=== PATIENT | male | born 1995 | race Caucasian/White ===

== ENCOUNTER 2023-04-29 18:14 | Inpatient (IN) ==
[2023-04-29] MEDS ORDERED: SODIUM CHLORIDE 0.9% 1,000 ML IV ONE (18:22)
--- NOTE | 2023-04-29 18:30 | Emergency Department Note ---
Impression & Plan Status epilepticus ED Provider Note NAME: HOWARD [id number] YOLANDA AGE: 28 SEX: M : 1995 ARRIVES VIA: Ambulance INFORMANT: EMS ED PROVIDER(S): Jona Pelaez DO CHIEF COMPLAINT: seizure HPI: Patient is a 28-year-old male who presents to the ER for seizure. He was acting confused in his cell and then started having seizures. This was witnessed by jail staff. He was brought in. He was given a total of 2 separate doses of Ativan at the jail of 2 mg apiece. Following this for EMS he was given 5 mg of Versed x2. The seizures did stop after each time. History is otherwise limited as he is unable to contribute to the history. PAST MEDICAL HISTORY:See Below PAST SURGICAL HISTORY:See Below FAMILY HISTORY:See Below SOCIAL HISTORY:See Below HOME MEDICATIONS:See Below ALLERGIES:See Below VITALS:See Below PHYSICAL EXAMINATION: GENERAL: Lying in bed with eyes open, nontoxic EYE EXAM: normal conjunctiva. PERRL and EOM's grossly intact. OROPHARYNX: mucous membranes are moist LUNGS: Clear to auscultation. Normal chest wall mechanics HEART: no murmurs, S1 normal and S2 normal ABDOMEN: abdomen soft, non-tender, normo-active bowel sounds, no masses, no rebound or guarding. BACK: Back is symmetrical on inspection and there is no deformity, no midline tenderness, no CVA tenderness. UPPER EXTREMITIES: upper extremities are grossly normal. LOWER EXTREMITIES: No pitting edema. NEURO EXAM: Awake and alert able to stick his tongue out but does not follow commands otherwise MEDICAL DECISION MAKING: Patient is a 28-year-old male who presents ER for above-stated complaint. IV was established blood work was obtained. Detention records reviewed/external recor ds. Labs show no significant leukocytosis or anemia. There is mild leukopenia at 4000. BMP along with LFTs bilirubin and magnesium was unremarkable. UA was clean. Tox was positive for benzos. Alcohol negative. COVID-negative. CT head and cervical spine was negative. Patient was updated bedside. He was improving. He was given 2 g of Keppra while here in the ER. He was updated and admitted to the hospitalist for further evaluation management treatment. Discussed with Pt concerning signs and symptoms to watch out for. Pt was instructed to follow up with their PCP and discussed with the patient their option to return to the ED at anytime for persistent or worsening symptoms. The appropriate anticipatory guidance and out-patient management, including indications for return to the emergency department, were explained at length to the patient and understood. Triage Nursing notes reviewed. Limited review of prior medical records performed Vital Signs: reviewed and remarkable for no significant abnormalities Differential diagnosis: Differential diagnoses includes but is not limited to toxic, metabolic, infectious, traumatic, cardiac, neurologic, hematologic, psychiatric and inflammatory etiologies. ER treatment provided: See below Diagnostics interpreted by me include EKG and cardiac monitoring as listed below: -Cardiac Monitoring: An order was placed for continuous cardiac monitoring. The monitor shows a rate of 70 with sinus rhythm. -ECG: Sinus rhythm rate 81 Normal axis No PVCs QTc 434 -Laboratory studies:Interpreted by me as stated above in MDM and shown below. 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 Required: No Beliefs That Will Affect Care: None Current Living Situation: Other Current Living Situation Comment: [facility] Feels Safe at Home: Yes Allergies Allergies Allergy/AdvReac Type Severity Reaction Status Date / Time Carbapenems Allergy Unknown Unknown Verified 04/29/23 19:48 Cephalosporins Allergy Unknown Unknown Verified 04/29/23 19:48 Penicillins Allergy Unknown Unknown Verified 04/29/23 19:48 polyethylene glycol Allergy Unknown Unknown Verified 04/29/23 19:48 shellfish derived Allergy Unknown Unknown Verified 04/29/23 19:48 ziprasidone [From Geodon] Allergy Unknown Unknown Verified 04/29/23 19:48 Home Meds Home Medications Medication Instructions Recorded Confirmed albuterol sulfate 90 mcg/actuation 2 puff inhalation QID PRN Wheezing 04/29/23 04/29/23 aerosol inhaler atorvastatin 20 mg tablet 20 mg PO DAILY 04/29/23 04/29/23 carbamazepine 200 mg tablet 300 mg PO TID 04/29/23 04/29/23 hydrochlorothiazide 25 mg tablet 50 mg PO DAILY 04/29/23 04/29/23 levetiracetam 500 mg tablet 500 mg PO BID 04/29/23 04/29/23 levothyroxine 75 mcg tablet 75 mcg PO QAM 04/29/23 04/29/23 omeprazole 20 mg capsule,delayed 20 mg PO DAILY 04/29/23 04/29/23 release perphenazine 16 mg tablet 16 mg PO BID 04/29/23 04/29/23 prazosin 2 mg capsule 4 mg PO 04/29/23 04/29/23 venlafaxine 150 mg 300 mg PO HS 04/29/23 04/29/23 capsule,extended release 24 hr venlafaxine 75 mg capsule,extended 75 mg PO HS 04/29/23 04/29/23 release 24 hr Results & Data (ED) Vital Signs Vital Signs - 24 hr 04/29/23 18:19 04/29/23 18:25 04/29/23 19:00 Pulse Rate 85 80 Pulse Rate from SpO2 Sensor 79 Pulse Rhythm Regular Pulse Strength Normal Respiratory Rate 18 20 Respiratory Effort / Characteristics Non-Labored Respiratory Depth Normal Respiratory Pattern Regular Blood Pressure 126/88 132/86 Blood Pressure Mean 100 101 Pulse Oximetry 95 94 98 Oxygen Delivery Method Room Air Room Air Room Air Sepsis Recent Fever Within 48 Hours No Sepsis New/Unexplained Change in Mental Status N/A Sepsis Action Taken by Nursing No Action Required 04/29/23 18:53 04/29/23 19:35 04/29/23 19:43 Pulse Rate 88 95 H 102 H Pulse Rate from SpO2 Sensor 95 H 106 H Pulse Rhythm Pulse Strength Respiratory Rate 22 28 H Respiratory Effort / Characteristics Respiratory Depth Respiratory Pattern Blood Pressure 128/86 127/96 Blood Pressure Mean 100 106 Pulse Oximetry 99 98 Oxygen Delivery Method Room Air Room Air Sepsis Recent Fever Within 48 Hours Sepsis New/Unexplained Change in Mental Status Sepsis Action Taken by Nursing 04/29/23 20:00 Pulse Rate 84 Pulse Rate from SpO2 Sensor 83 Pulse Rhythm Pulse Strength Respiratory Rate 23 Respiratory Effort / Characteristics Respiratory Depth Respiratory Pattern Blood Pressure 128/93 Blood Pressure Mean 104 Pulse Oximetry 97 Oxygen Delivery Method Room Air Sepsis Recent Fever Within 48 Hours Sepsis New/Unexplained Change in Mental Status Sepsis Action Taken by Nursing Laboratory Data 04/29/23 18:39 04/29/23 18:39 Lab Results 04/29/23 04/29/23 04/29/23 Range/Units 18:39 18:39 18:39 WBC 4.42 L (4.8-10.8) K/ul RBC 4.68 L (4.70-6.10) M/uL Hgb 14.1 (14.0-18.0) g/dl Hct 41.4 L (42.0-52.0) % MCV 88.5 (80.0-100.0) fL MCH 30.1 (25.0-34.0) pg MCHC 34.1 (32.0-36.0) g/dL RDW Std Deviation 44.2 (36.4-46.3) fL RDW Coeff of Taras 13.7 (11.5-14.5) % Plt Count 278 (130-400) K/uL MPV 9.7 (9.4-12.4) fL Immature Gran % (Auto) 0.7 % Neut % (Auto) 62.4 % Lymph % (Auto) 23.1 % Mont[place] % (Auto) 10.6 % Eos % (Auto) 2.3 % Baso % (Auto) 0.9 % Neut # (Auto) 2.76 (1.40-6.50) K/uL Lymph # (Auto) 1.02 L (1.20-3.40) K/uL [place] # (Auto) 0.47 (0.11-0.59) K/uL Eos # (Auto) 0.10 (0.00-0.50) K/uL Baso # (Auto) 0.04 (0.00-0.20) K/uL Immature Gran # (Auto) 0.03 (0.01-0.20) K/uL Sodium 140 (136-145) mmol/L Potassium 4.2 (3.5-5.1) mmol/L Chloride 107 (98-107) mmol/L Carbon Dioxide 29 (21-32) mmol/L Anion Gap 4 (3-11) BUN 10 (6-23) mg/dl Creatinine 0.94 (0.6-1.4) mg/dl Est Cr Clr Drug Dosing Not Reportable Est GFR ( Amer) 126.5 ml/min Est GFR (Non-Af Amer) 109.1 ml/min BUN/Creatinine Ratio 10.6 (10-20) Glucose 92 (70-99(Fasting)) mg/dl Calcium 9.1 (8.6-10.3) mg/dl Magnesium 1.8 (1.7-2.4) mg/dl Total Bilirubin 0.2 (0.2-1.0) mg/dl AST 27 (13-39) U/L ALT 34 (7-52) U/L Alkaline Phosphatase 100 (34-104) U/L Total Protein 7.3 (6.0-8.3) gm/dl Albumin 4.4 (3.4-5.0) gm/dl Globulin 2.9 (2.5-4.0) gm/dl Albumin/Globulin Ratio 1.5 (0.9-2) Urine Color Urine Appearance (Clear) Urine pH (4.5-7.5) Ur Specific [place] (1.000-1.030) Urine Protein (Negative) Urine Glucose (UA) (Negative) Urine Ketones (Negative) Urine Blood (Negative) Urine Nitrite (Negative) Urine Bilirubin (Negative) Urine Urobilinogen (Negative) Ur Leukocyte Esterase (Negative) Urine Opiates Screen (Neg) Ur Methadone, Qual (Neg) Urine Barbiturates (Neg) Ur Phencyclidine (PCP) (Neg) U Amphetamin/Meth Scrn (Neg) MDMA (Ecstasy) Screen (Neg) U Benzodiazepines Scrn (Neg) Ur Cocaine Metabolite (Neg) U Marijuana (THC) Screen (Neg) Ethyl Alcohol mg/dL < 10.0 (<10.0) mg/dl 04/29/23 04/29/23 Range/Units 19:20 19:20 WBC (4.8-10.8) K/ul RBC (4.70-6.10) M/uL Hgb (14.0-18.0) g/dl Hct (42.0-52.0) % MCV (80.0-100.0) fL MCH (25.0-34.0) pg MCHC (32.0-36.0) g/dL RDW Std Deviation (36.4-46.3) fL RDW Coeff of Taras (11.5-14.5) % Plt Count (130-400) K/uL MPV (9.4-12.4) fL Immature Gran % (Auto) % Neut % (Auto) % Lymph % (Auto) % [place] % (Auto) % Eos % (Auto) % Baso % (Auto) % Neut # (Auto) (1.40-6.50) K/uL Lymph # (Auto) (1.20-3.40) K/uL [place] # (Auto) (0.11-0.59) K/uL Eos # (Auto) (0.00-0.50) K/uL Baso # (Auto) (0.00-0.20) K/uL Immature Gran # (Auto) (0.01-0.20) K/uL Sodium (136-145) mmol/L Potassium (3.5-5.1) mmol/L Chloride (98-107) mmol/L Carbon Dioxide (21-32) mmol/L Anion Gap (3-11) BUN (6-23) mg/dl Creatinine (0.6-1.4) mg/dl Est Cr Clr Drug Dosing Est GFR ( Amer) ml/min Est GFR (Non-Af Amer) ml/min BUN/Creatinine Ratio (10-20) Glucose (70-99(Fasting)) mg/dl Calcium (8.6-10.3) mg/dl Magnesium (1.7-2.4) mg/dl Total Bilirubin (0.2-1.0) mg/dl AST (13-39) U/L ALT (7-52) U/L Alkaline Phosphatase (34-104) U/L Total Protein (6.0-8.3) gm/dl Albumin (3.4-5.0) gm/dl Globulin (2.5-4.0) gm/dl Albumin/Globulin Ratio (0.9-2) Urine Color Yellow Urine Appearance Clear (Clear) Urine pH 8.0 H (4.5-7.5) Ur Specific [place] 1.011 (1.000-1.030) Urine Protein Negative (Negative) Urine Glucose (UA) Negative (Negative) Urine Ketones Negative (Negative) Urine Blood Negative (Negative) Urine Nitrite Negative (Negative) Urine Bilirubin Negative (Negative) Urine Urobilinogen Negative (Negative) Ur Leukocyte Esterase Negative (Negative) Urine Opiates Screen Neg (Neg) Ur Methadone, Qual Neg (Neg) Urine Barbiturates Neg (Neg) Ur Phencyclidine (PCP) Neg (Neg) U Amphetamin/Meth Scrn Neg (Neg) MDMA (Ecstasy) Screen Neg (Neg) U Benzodiazepines Scrn Pos H (Neg) Ur Cocaine Metabolite Neg (Neg) U Marijuana (THC) Screen Neg (Neg) Ethyl Alcohol mg/dL (<10.0) mg/dl Administered Medications Nicotine (Nicotine 21 Mg/24 Hr Tdsy) 21 mg TD QAM ZULMA Stop: 05/29/23 22:54 Last Admin: 04/29/23 23:03 Dose: 21 mg Documented By: LEONCIO Prazosin HCl (Prazosin Hcl 1 Mg Cap) 4 mg PO HS ZULMA Stop: 05/29/23 22:04 Last Admin: 04/29/23 22:45 Dose: 4 mg Documented By: LEONCIO Discontinued Medications Levetiracetam 2,000 mg/ Sodium (Chloride) 270 mls @ 999 mls/hr IV NOW STA Stop: 04/29/23 18:38 Last Infusion: 04/29/23 19:03 Dose: 0 mls/hr Documented By: Admin: 04/29/23 18:35 Dose: 999 mls/hr Documented By: BEVERLEY Sodium Chloride (Nss) 1,000 mls @ 999 mls/hr IV .Q1H1M ONE Stop: 04/29/23 19:22 Last Infusion: 04/29/23 19:39 Dose: 0 mls/hr Documented By: Admin: 04/29/23 18:26 Dose: 999 mls/hr Documented By: BEVERLEY Imaging Data Radiologist's Impression: Head CT 04/29/23 18:22 Exam(s): CT HEAD Without Contrast EXAM: CT Head Without Intravenous Contrast CLINICAL HISTORY: Reason for exam: ams. TECHNIQUE: Axial computed tomography images of the head/brain without intravenous contrast. CTDI is 37.42 mGy and DLP is 702.46 mGy-cm. Automated exposure control was utilized for the study. A dose lowering technique was utilized adhering to the principles of ALARA. COMPARISON: None FINDINGS: Brain: No acute infarct or hemorrhage. No extra-axial fluid collection. No mass effect or midline shift. Ventricles and sulci: Normal. No ventriculomegaly or intraventricular hemorrhage. Bones: Normal. No bony lesion or acute fracture. Subcutaneous tissues: Normal. Sinuses: Normal. No air-fluid levels or mucosal thickening. Mastoid air cells: Normal. Orbits: Grossly unremarkable. IMPRESSION: No acute intracranial abnormality. Electronically signed by: Cortney Woody M.D. 04/29/23 19:[address] 04/29/23 18:32 Exam(s): CT C SPINE EXAM: CT Cervical Spine Without Intravenous Contrast CLINICAL HISTORY: Reason for exam: fall. TECHNIQUE: Axial computed tomography images of the cervical spine without intravenous contrast. CTDI is 26.9 mGy and DLP is 541.59 mGy-cm. Automated exposure control was utilized for the study. A dose lowering technique was utilized adhering to the principles of ALARA. COMPARISON: None FINDINGS: Bones: Normal alignment. No acute fracture or bony lesion. Disc spaces: No subluxation. No spinal canal stenosis or neuroforaminal stenosis. Soft tissues: Normal. IMPRESSION: No acute traumatic abnormality. Electronically signed by: Cortney Woody M.D. 04/29/23 19:41 PM Discharge Plan Visit Data Chief Complaint: Seizure Stated Complaint: SEIZURE ED Provider: Jona Pelaez Discharge Problem: Status epilepticus Patient Disposition: Admitted As Inpatient Discharge Instructions Interventions: ED Discharge Assessment Last Done: 04/29/23 21:45
[2023-04-29 18:57] LABS: Basophils # (auto) 0.04 K/uL (0.00-0.20); Basophils % (auto) 0.9 %; Eosinophils % (auto) 2.3 %; Hematocrit (blood only) 41.4 % (42.0-52.0); Hemoglobin 14.1 g/dl (14.0-18.0); Immature Granulocytes # (auto) 0.03 K/uL (0.01-0.20); Immature Granulocytes % (auto) 0.7 %; Lymphocytes # (auto) 1.02 K/uL (1.20-3.40); Lymphocytes % (auto) 23.1 %; Mean Corpuscular Hemoglobin 30.1 pg (25.0-34.0); Mean Corpuscular Hgb Conc 34.1 g/dL (32.0-36.0); Mean Corpuscular Volume 88.5 fL (80.0-100.0); Mean Platelet Volume 9.7 fL (9.4-12.4); Monocytes # (auto) 0.47 K/uL (0.11-0.59); Monocytes % (auto) 10.6 %; Neutrophils # (auto) 2.76 K/uL (1.40-6.50); Neutrophils % (auto) 62.4 %; Platelet Count 278 K/uL (130-400); RDW Coefficient of Variation 13.7 % (11.5-14.5); RDW Standard Deviation 44.2 fL (36.4-46.3); Red Blood Count 4.68 M/uL (4.70-6.10); White Blood Count 4.42 K/ul (4.8-10.8)
[2023-04-29 19:09] LABS: Alanine Aminotransferase 34 U/L (7-52); Albumin Globulin Ratio 1.5 (0.9-2); Albumin Level 4.4 gm/dl (3.4-5.0); Alkaline Phosphatase 100 U/L (34-104); Anion Gap 4 (3-11); Aspartate Aminotransferase 27 U/L (13-39); BUN Creatinine Ratio 10.6 (10-20); Bilirubin,Total 0.2 mg/dl (0.2-1.0); Blood Urea Nitrogen 10 mg/dl (6-23); Calcium 9.1 mg/dl (8.6-10.3); Carbon Dioxide 29 mmol/L (21-32); Chloride 107 mmol/L (98-107); Est GFR (African American) 126.5 ml/min; Est GFR (Non-African American) 109.1 ml/min; Globulin 2.9 gm/dl (2.5-4.0); Glucose 92 mg/dl (70-99(Fasting)); Magnesium 1.8 mg/dl (1.7-2.4); Potassium 4.2 mmol/L (3.5-5.1); Sodium 140 mmol/L (136-145); Total Protein 7.3 gm/dl (6.0-8.3)
--- NOTE | 2023-04-29 19:41 | CT Scan Report ---
Exam(s): CT HEAD Without Contrast EXAM: CT Head Without Intravenous Contrast CLINICAL HISTORY: Reason for exam: ams. TECHNIQUE: Axial computed tomography images of the head/brain without intravenous contrast. CTDI is 37.42 mGy and DLP is 702.46 mGy-cm. Automated exposure control was utilized for the study. A dose lowering technique was utilized adhering to the principles of ALARA. COMPARISON: None FINDINGS: Brain: No acute infarct or hemorrhage. No extra-axial fluid collection. No mass effect or midline shift. Ventricles and sulci: Normal. No ventriculomegaly or intraventricular hemorrhage. Bones: Normal. No bony lesion or acute fracture. Subcutaneous tissues: Normal. Sinuses: Normal. No air-fluid levels or mucosal thickening. Mastoid air cells: Normal. Orbits: Grossly unremarkable. IMPRESSION: No acute intracranial abnormality. Electronically signed by: Cortney Woody M.D. 04/29/23 19:40 PM
--- NOTE | 2023-04-29 19:42 | CT Scan Report ---
Exam(s): CT C SPINE EXAM: CT Cervical Spine Without Intravenous Contrast CLINICAL HISTORY: Reason for exam: fall. TECHNIQUE: Axial computed tomography images of the cervical spine without intravenous contrast. CTDI is 26.9 mGy and DLP is 541.59 mGy-cm. Automated exposure control was utilized for the study. A dose lowering technique was utilized adhering to the principles of ALARA. COMPARISON: None FINDINGS: Bones: Normal alignment. No acute fracture or bony lesion. Disc spaces: No subluxation. No spinal canal stenosis or neuroforaminal stenosis. Soft tissues: Normal. IMPRESSION: No acute traumatic abnormality. Electronically signed by: Cortney Woody M.D. 04/29/23 19:41 PM
[2023-04-29 19:54] LABS: Appearance Urine Clear (Clear); Bilirubin Urine Negative (Negative); Blood Urine Negative (Negative); Color Urine Yellow; Glucose Urine UA Negative (Negative); Ketones Urine Negative (Negative); Leukocyte Esterase Urine Negative (Negative); Nitrite Urine Negative (Negative); Protein Urine Negative (Negative); Specific Gravity Urine 1.011 (1.000-1.030); Urobilinogen Urine Negative (Negative)
--- NOTE | 2023-04-29 20:07 | History & Physical Report ---
Date of Service April 29, 2023 Assessment & Plan (1) Seizure: Plan: -Admit to the PCU on tele -Currently stable and without seizure activity since ED arrival -Patient has a hx of both seizure disorder and conversion disorder with seizures or convulsions -Witnessed having seizures around 1730, did not break after 4 mg ativan at the shelter, did break after 10 mg of Versed -S/P 2gm IV keppra in the ED -At this time the etiology of his current episodes is unknown, no metabolic derangements on initial labs, alcohol level is negative, tox screen is in process -CT of the head and chest xray are negative -Patient denies missing doses of medications recently; [facility] confirmed that he has been on the same doses of Keppra and Carbamazepine since December of 2021 -He does have a history of alcohol abuse, he has been at [facility] for approximately 1 year, alcohol level negative, do not think he is in alcohol withdrawal at this time but will need to keep it on the differential for now -Patient is on Perphenazine, per UpToDate, this can cause seizures, unsure if this could be related to recent events at this time, will hold for now -Will order prn IV ativan, 4mg for recurrent seizures -Patient was given 2gm IV keppra in the ED, will continue oral antiepileptic medications tomorrow am -Neurology consult placed -Seizure precuations -BL SCD's for DVT PPX -NPO for now until he is awake and safe to eat -AM CBC, CMP, Mag (2) Antisocial personality disorder: Plan: -Continue prazosin and Venlafaxine (3) Seizure disorder: Plan: -Continue Keppra and Carbamazepine (4) Conversion disorder with seizures or convulsions: Plan: -Monitor for possible seizure related activity related (5) Hypothyroidism: Plan: -Continue levothyroxine (6) HTN (hypertension): Plan: -Stable -Conitnue HCTZ (7) GERD (gastroesophageal reflux disease): Plan: -Conitnue PPI (8) Asthma: Plan: -Continue prn albuterol (9) Amphetamine abuse: Plan: -Monitor urine tox screen (10) Alcohol abuse: Plan: -Monitor for alcohol withdrawal -Would speak with him regarding possible alcohol obtain in the shelter when he is more alert Plan The patient was seen with and discussed with Dr. Agosto at the time of the admission History of Present Illness Chief Complaint: Seizures Primary Care Provider: WALTER Banuelos is a 28 year old male with a PMH significant for seizure disorder, hypothyroidism, schizoaffective disorder, bipolar type, antisocial personality disorder, alcohol use disorder, amphetamine abuse, who presented to the [facility] ED from [facility] via ALS for seizures. Per the ED staff, the patient has a hx of seizures and was acting strange in his cell earlier tonight. Guards then witnessed the patient starting to have seizures. The patient was given 2, 2 mg doses of Ativan at the Detention without resolution of seizures. EMS gave the patient 10 mg Versed in route and his seizures broke. In the ED the patient was noted to be tachycardic at 102 and tachypneic at 28 but otherwise stable. CBC, CMP, and UA were unremarkable. Prior to admission the patient was given 2gm IV keppra and 1L NSS. At the time of the exam the patient was lying in bed in no acute distress. He is very fatigued due to recent seizures and large amount of benzodiazepines. He confirms that he has a history of seizures and states that he is currently on Carbamazapine and Keppra (confirmed by med rec). He denies recent fever, chills, chest pain, SOB, nausea, vomiting, trauma, cough, nausea, vomiting, diarrhea, dysuria, hematuria. When asked, he states he is having abdominal pain but is unable to give further details. I called and spoke to the [facility] who was able to confirm that he has been on Carbamazepine and Keppra, unfortunately they were unable to provider further information at that time. Please refer to Dr. Agosto's attestation for any changes to the treatment plan Allergies Allergy/AdvReac Type Severity Reaction Status Date / Time Carbapenems Allergy Unknown Unknown Verified 04/29/23 19:48 Cephalosporins Allergy Unknown Unknown Verified 04/29/23 19:48 Penicillins Allergy Unknown Unknown Verified 04/29/23 19:48 polyethylene glycol Allergy Unknown Unknown Verified 04/29/23 19:48 shellfish derived Allergy Unknown Unknown Verified 04/29/23 19:48 ziprasidone [From Geodon] Allergy Unknown Unknown Verified 04/29/23 19:48 Home Medications Medication Instructions Recorded Confirmed Type albuterol sulfate 90 mcg/actuation 2 puff inhalation QID PRN Wheezing 04/29/23 04/29/23 History aerosol inhaler atorvastatin 20 mg tablet 20 mg PO DAILY 04/29/23 04/29/23 History carbamazepine 200 mg tablet 300 mg PO TID 04/29/23 04/29/23 History hydrochlorothiazide 25 mg tablet 50 mg PO DAILY 04/29/23 04/29/23 History levetiracetam 500 mg tablet 500 mg PO BID 04/29/23 04/29/23 History levothyroxine 75 mcg tablet 75 mcg PO QAM 04/29/23 04/29/23 History omeprazole 20 mg capsule,delayed 20 mg PO DAILY 04/29/23 04/29/23 History release perphenazine 16 mg tablet 16 mg PO BID 04/29/23 04/29/23 History prazosin 2 mg capsule 4 mg PO HS 04/29/23 04/29/23 History venlafaxine 150 mg 300 mg PO HS 04/29/23 04/29/23 History capsule,extended release 24 hr venlafaxine 75 mg capsule,extended 75 mg PO HS 04/29/23 04/29/23 History release 24 hr Past Med/Surg History Medical History (Updated 04/30/23 @ 14:34 by Loreta Monreal MD) Alcohol abuse Amphetamine abuse Antisocial personality disorder Asthma Conversion disorder with seizures or convulsions GERD (gastroesophageal reflux disease) HTN (hypertension) Hypothyroidism Schizoaffective disorder Seizure disorder Social History Smoking Status: Current some day smoker Do You Dip or Chew Tobacco: Yes; Hx Alcohol Use: No Preferred Language: Kinyarwanda Professor Of 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 Required: No Beliefs That Will Affect Care: None Current Living Situation: Other Current Living Situation Comment: [facility] Feels Safe at Home: Yes Physical Exam Physical Exam: Physical Exam: General: In no acute distress, fatigued, non-toxic appearing HEENT: Normocephalic, atraumatic, no scleral icterus, pupils around round, symmetrical, and reactive to light, moist mucus membranes, trachea midline, no thyromegaly Chest/Pulm: No respiratory distress, symmetrical chest expansion, clear breath sounds throughout Cardiac: RRR, no murmurs noted Abdomen: Negative for ascites and bruising, normoactive bowel sounds, soft, no guarding or withdrawal to pain on palpation of the abdomen Musculoskeletal: Patient will squeeze fingers when asked, able to move upper and lower extrmeities Extremities: Radial, dorsalis pedis, and posterior tibial pulses are intact and symmetrical, no edema noted in the BL LE's Skin: Warm, dry, no rashes , lesions, or scars noted Neuro: Alert and oriented to person, month, and year, slow to respond but does respond appropriately to questions, CN II-XII tested and intact,no tremors noted Psych: No acute distress Results & Data Results & Data Vital Signs (Past 12 Hours) Vital Signs Pulse Resp BP Pulse Ox O2 Del Method 04/29/23 19:43 102 H 28 H 127/96 98 Room Air 04/29/23 19:35 95 H 22 128/86 99 Room Air 04/29/23 18:53 88 04/29/23 19:00 80 20 132/86 98 Room Air 04/29/23 18:25 94 Room Air 04/29/23 18:19 85 18 126/88 95 Room Air Laboratory Results Abnormal lab results 04/29/23 04/29/23 04/29/23 Range/Units 18:39 19:20 19:20 WBC 4.42 L (4.8-10.8) K/ul RBC 4.68 L (4.70-6.10) M/uL Hct 41.4 L (42.0-52.0) % Lymph # (Auto) 1.02 L (1.20-3.40) K/uL Urine pH 8.0 H (4.5-7.5) U Benzodiazepines Scrn Pos H (Neg) Diagnostic Findings Head CT 04/29/23 18:22 Exam(s): CT HEAD Without Contrast EXAM: CT Head Without Intravenous Contrast CLINICAL HISTORY: Reason for exam: ams. TECHNIQUE: Axial computed tomography images of the head/brain without intravenous contrast. CTDI is 37.42 mGy and DLP is 702.46 mGy-cm. Automated exposure control was utilized for the study. A dose lowering technique was utilized adhering to the principles of ALARA. COMPARISON: None FINDINGS: Brain: No acute infarct or hemorrhage. No extra-axial fluid collection. No mass effect or midline shift. Ventricles and sulci: Normal. No ventriculomegaly or intraventricular hemorrhage. Bones: Normal. No bony lesion or acute fracture. Subcutaneous tissues: Normal. Sinuses: Normal. No air-fluid levels or mucosal thickening. Mastoid air cells: Normal. Orbits: Grossly unremarkable. IMPRESSION: No acute intracranial abnormality. Electronically signed by: Cortney Woody M.D. 04/29/23 19:[address] 04/29/23 18:32 Exam(s): CT C SPINE EXAM: CT Cervical Spine Without Intravenous Contrast CLINICAL HISTORY: Reason for exam: fall. TECHNIQUE: Axial computed tomography images of the cervical spine without intravenous contrast. CTDI is 26.9 mGy and DLP is 541.59 mGy-cm. Automated exposure control was utilized for the study. A dose lowering technique was utilized adhering to the principles of ALARA. COMPARISON: None FINDINGS: Bones: Normal alignment. No acute fracture or bony lesion. Disc spaces: No subluxation. No spinal canal stenosis or neuroforaminal stenosis. Soft tissues: Normal. IMPRESSION: No acute traumatic abnormality. Electronically signed by: Cortney Woody M.D. 04/29/23 19:41 PM ECG Additional Comments: NSR, ST segment elevation noted in lead III, no previous ECG to compare to Code Status & VTE Plan Code Status Full code VTE Prophylaxis Plan VTE Prophylaxis will be ordered: Yes Supervising Physician Co-Signing Physician Notes Patient seen and examined, chart reviewed, case discussed with CHARITY Lindsey and I agree with the assessment and plan as above. In brief, patient is a 28yo male with history of seizure disorder - on Keppra and Carbamazepine as well as schizoaffective disorder on perphenazine presenting from [facility] with seizure. Patient received Ativan x 4mg IV as well as Versed 10mg IV prior to arrival Exam is limited - patient post-ictal as well as sedated from medication effects He is awake, drowsy, able to answer questions appropriately No rashes or lesions MMM, Neck supple, PERRL, no JVD, no tongue bites +S1/S2, regular, no m/r/g Lungs CTA anteriorly Neuro - no focal deficits Labs and images reviewed Assessment/Plan Known seizure disorder presenting with seizure- patient reports compliance with his medications CT Head is unremarkable. No electrolyte abnormality Received Keppra in the ER x 2gm -Continue Tegretol, check level -Continue Keppra PO after loading -Remainder as above PG Care Time/CCT Total # of Minutes Spent Total Time Spent with Patient: Total time spent is greater than 50% in coordination of care (as documented) at patient's floor/unit and/or counseling patient: [place] [address] INT INP/OBS CARE MIN Patient Type New Medical Decision Making High Complexity Diagnoses Seizure R56.9 Antisocial personality disorder F60.2 Seizure disorder G40.909 Conversion disorder with seizures or convulsions F44.5 Hypothyroidism E03.9 HTN (hypertension) I10 GERD (gastroesophageal reflux disease) K21.9 Asthma J45.909 Amphetamine abuse F15.10 Alcohol abuse F10.10
[2023-04-29 20:15] LABS: Amphetamines+Metham, Urine Neg (Neg); Barbiturates, Urine Neg (Neg); Benzodiazepine, Urine Pos (Neg); Cocaine, Urine Neg (Neg); MDMA (Ecstacy), Urine Neg (Neg); Methadone, Urine Neg (Neg); Opiate, Urine Neg (Neg); Phencyclidine, Urine Neg (Neg)
[2023-04-29] MEDS ORDERED: LORazepam 2 MG/1 ML VIAL IV PRN (20:16)
[2023-04-29] MEDS ORDERED: ALBUTEROL HFA 8 GM INHALER INH PRN (22:05)
[2023-04-29] MEDS: PRAZOSIN HCL 1 MG CAP PO SCH (22:45)
[2023-04-29] MEDS: NICOTINE 21 MG/24 HR TDSY TD SCH (23:03)
[2023-04-30] MEDS: LEVOTHYROXINE SODIUM 75 MCG TABLET PO SCH (05:45)
[2023-04-30 06:52] LABS: Basophils # (auto) 0.04 K/uL (0.00-0.20); Basophils % (auto) 0.9 %; Eosinophils % (auto) 2.3 %; Hematocrit (blood only) 38.6 % (42.0-52.0); Hemoglobin 13.3 g/dl (14.0-18.0); Immature Granulocytes # (auto) 0.01 K/uL (0.01-0.20); Immature Granulocytes % (auto) 0.2 %; Lymphocytes # (auto) 1.08 K/uL (1.20-3.40); Lymphocytes % (auto) 24.7 %; Mean Corpuscular Hemoglobin 30.6 pg (25.0-34.0); Mean Corpuscular Hgb Conc 34.5 g/dL (32.0-36.0); Mean Corpuscular Volume 88.7 fL (80.0-100.0); Mean Platelet Volume 9.7 fL (9.4-12.4); Monocytes # (auto) 0.36 K/uL (0.11-0.59); Monocytes % (auto) 8.2 %; Neutrophils # (auto) 2.78 K/uL (1.40-6.50); Neutrophils % (auto) 63.7 %; Platelet Count 238 K/uL (130-400); RDW Coefficient of Variation 13.8 % (11.5-14.5); Red Blood Count 4.35 M/uL (4.70-6.10); White Blood Count 4.37 K/ul (4.8-10.8)
[2023-04-30 07:19] LABS: Alanine Aminotransferase 32 U/L (7-52); Albumin Globulin Ratio 1.6 (0.9-2); Albumin Level 4.1 gm/dl (3.4-5.0); Alkaline Phosphatase 92 U/L (34-104); Anion Gap 7 (3-11); BUN Creatinine Ratio 9.8 (10-20); Bilirubin,Total 0.2 mg/dl (0.2-1.0); Blood Urea Nitrogen 8 mg/dl (6-23); Carbon Dioxide 26 mmol/L (21-32); Chloride 107 mmol/L (98-107); Creatinine Clr Calc Pharmacy 161.2 ml/min; Est GFR (African American) 138.5 ml/min; Est GFR (Non-African American) 119.5 ml/min; Globulin 2.6 gm/dl (2.5-4.0); Glucose 97 mg/dl (70-99(Fasting)); Magnesium 1.9 mg/dl (1.7-2.4); Sodium 140 mmol/L (136-145); Total Protein 6.7 gm/dl (6.0-8.3)
[2023-04-30 08:20] LABS: Potassium 3.9 mmol/L (3.5-5.1)
--- NOTE | 2023-04-30 08:42 | Electrocardiogram Report ---
Test Reason : Blood Pressure : / mmHG Vent. Rate : 089 BPM Atrial Rate : 089 BPM P-R Int : 164 ms QRS Dur : 084 ms QT Int : 332 ms P-R-T Axes : 038 052 076 degrees QTc Int : 403 ms Normal sinus rhythm Nonspecific ST and T wave abnormality Abnormal ECG No previous ECGs available Confirmed by Toy Morris ([id number]) on 04/30/2023 8:42:01 AM Referred By: [facility] Confirmed By:Toy Morris
--- NOTE | 2023-04-30 08:43 | Electrocardiogram Report ---
Test Reason : Blood Pressure : / mmHG Vent. Rate : 081 BPM Atrial Rate : 081 BPM P-R Int : 164 ms QRS Dur : 082 ms QT Int : 340 ms P-R-T Axes : 039 040 053 degrees QTc Int : 394 ms Normal sinus rhythm Normal ECG When compared with ECG of 29-APR-2023 18:22, (unconfirmed) No significant change was found Confirmed by Toy Morris ([id number]) on 04/30/2023 8:42:53 AM Referred By: [facility] Confirmed By:Toy Morris
[2023-04-30] MEDS: NICOTINE 21 MG/24 HR TDSY TD SCH (08:50)
[2023-04-30] MEDS: PANTOprazole 40 MG TAB PO SCH (08:51)
[2023-04-30] MEDS: levETIRAcetam 500 MG TAB PO SCH ×2 (08:51→20:07)
[2023-04-30] MEDS: carBAMazepine 200 MG TABLET PO SCH ×3 (08:52→20:06)
[2023-04-30] MEDS: hydroCHLOROthiazide 25 MG TAB PO SCH (08:52)
[2023-04-30] MEDS: ATORVASTATIN 20 MG TAB PO SCH (08:52)
[2023-04-30] MEDS: LORazepam 2 MG/1 ML VIAL IV PRN ×4 (10:35→22:44)
--- NOTE | 2023-04-30 10:45 | Neurology Consultation ---
Date of Consultation April 30, 2023 Assessment & Plan (1) Seizure: (2) Seizure disorder: Plan 28-year-old male prisoner with a history of seizure disorder, reportedly beginning as a teenager, historically improved control after carbamazepine was added to his levetiracetam. However, patient now presents with a breakthrough seizure, although did relate to me that he had an episode of nausea and vomiting 2 days prior to this recent event, yet, denies any ongoing GI symptoms. I will order a carbamazepine trough level for tomorrow morning. He was given 2 g of levetiracetam in the emergency department. Would continue with Keppra 500 mg twice daily. Review results of carbamazepine level when available. If there is room to increase the dosage of this medication, would do so. (I would rather increase the dosage of carbamazepine, if able, rather than increasing his dosage of levetiracetam given his mood disorder with associated psychosis.) If, however, there is no room to increase the carbamazepine level, would consider starting lamotrigine, 25 mg twice daily with gradual weekly up titration to 200 to 300 mg/day, or further if necessary. Would then consider tapering off levetiracetam going forward (again, would only add lamotrigine if there is no room to increase his dosage of carbamazepine. I do not think an EEG is necessary at this time as it would not acutely alter his management. An outpatient EEG could be considered. It would not be unreasonable to obtain a gadolinium-enhanced brain MRI, seizure protocol during this hospitalization. Follow-up with psychiatry consultation. Patient reports that perphenazine has been an effective antipsychotic medication for him. It is not unreasonable to continue with this medication as he is on 2 antiseizure medications as well. Again, follow-up with specific recommendations from psychiatry when available. History of Present Illness Reason for Consultation: Seizures Requesting Physician: Rosalia Attending Physician: Dandre Zelaya History of Present Illness The patient is a 28-year-old male prisoner with a history of seizures which she reports began at age 15, for which he has been prescribed levetiracetam, although he reports carbamazepine was added more recently and has resulted in significant reduction in the frequency of his seizures. He presented to the emergency department last night after a prolonged seizure episode that was witnessed by personnel. The episode was preceded by a period of confusion. The seizure abated in route to the hospital after administration of lorazepam and Versed. He was given a loading dose of 2 g of IV Keppra. The patient is fairly amnestic for his recent seizure. He does inform me that prior to this event, his last seizure occurred about 8 months ago. He did report to me that he had an episode of nausea and vomiting about 2 to 3 days ago, but denies any current GI symptoms. He does complain of mild generalized musculoskeletal soreness and also endorses a history of intermittent migrainous headache with associated sudhir sea for which she is usually given Tylenol. He indicates that a maternal cousin has seizures, although does not think his mother has the same. No other known family history of epilepsy. A CT of the head was negative for hemorrhage or acute process. No gross structural abnormalities. I independently reviewed these images. Past medical history is also notable for schizoaffective, bipolar, and antisocial personality disorder. History of alcohol use disorder, and amphetamine abuse. He has been prescribed perphenazine to address psychosis. He indicates that he has been on this medication for a long time and it has worked the best. This medication is currently on hold. Psychiatry has been consulted as well. Allergies Allergy/AdvReac Type Severity Reaction Status Date / Time Carbapenems Allergy Unknown Unknown Verified 04/29/23 19:48 Cephalosporins Allergy Unknown Unknown Verified 04/29/23 19:48 Penicillins Allergy Unknown Unknown Verified 04/29/23 19:48 polyethylene glycol Allergy Unknown Unknown Verified 04/29/23 19:48 shellfish derived Allergy Unknown Unknown Verified 04/29/23 19:48 ziprasidone [From Geodon] Allergy Unknown Unknown Verified 04/29/23 19:48 Home Medications Medication Instructions Recorded Confirmed Type albuterol sulfate 90 mcg/actuation 2 puff inhalation QID PRN Wheezing 04/29/23 04/29/23 History aerosol inhaler atorvastatin 20 mg tablet 20 mg PO DAILY 04/29/23 04/29/23 History carbamazepine 200 mg tablet 300 mg PO TID 04/29/23 04/29/23 History hydrochlorothiazide 25 mg tablet 50 mg PO DAILY 04/29/23 04/29/23 History levetiracetam 500 mg tablet 500 mg PO BID 04/29/23 04/29/23 History levothyroxine 75 mcg tablet 75 mcg PO QAM 04/29/23 04/29/23 History omeprazole 20 mg capsule,delayed 20 mg PO DAILY 04/29/23 04/29/23 History release perphenazine 16 mg tablet 16 mg PO BID 04/29/23 04/29/23 History prazosin 2 mg capsule 4 mg PO HS 04/29/23 04/29/23 History venlafaxine 150 mg 300 mg PO HS 04/29/23 04/29/23 History capsule,extended release 24 hr venlafaxine 75 mg capsule,extended 75 mg PO HS 04/29/23 04/29/23 History release 24 hr Patient History Social History Smoking Status: Current some day smoker Do You Dip or Chew Tobacco: Yes; Hx Alcohol Use: No Preferred Language: Kinyarwanda Medical Doctor Md Required: No Beliefs That Will Affect Care: None Current Living Situation: Other Current Living Situation Comment: [facility] Feels Safe at Home: Yes Review of Systems Constitutional: + fatigue; no fever and no chills Eyes: no blind spots and no diplopia Ear, Nose, Mouth, Throat: no hearing loss Respiratory: no cough and no dyspnea Cardiovascular: no chest pain and no palpitations Gastrointestinal: as per Subjective / HPI Genitourinary: no dysuria Musculoskeletal: + back pain and + neck pain Integumentary: no rash and no lesions Neurologic: as per Subjective / HPI and + headache(s); no localized weakness, no loss of sensation, no lack of coordination and no abnormal movements Psychiatric: + depression, + irritability and + anxiety Hematologic / Lymphatic: no easy bleeding and no easy bruising Exam (Neuro) Constitutional: well developed and well nourished; no acute distress Eyes: normal visual estrada by confrontation, PERRL and EOM intact bilaterally Neurologic: Oriented to:: Person, Place and Time Memory: Short Term Intact and Remote Intact Attention: Span Intact and Concentration Intact Speech Fluency: negative Dysarthria or Dysfluency Fund of Knowledge: Current Events, Past History and Vocabulary Cranial Nerves: Normal II, III, IV, , V, VII, VIII, IX, X, XI and XII Motor Strength: Normal Lower Extremities and Normal Upper Extremities Motor Tone: Normal Lower Extremities and Normal Upper Extremities Muscle Bulk/Involuntary Movements: No Involuntary Movements; negative Muscle Atrophy Sensation: Light Touch Intact, Pain/Temperature Intact and Proprioception Intact Coordination: Normal; negative Dysdiadochokinesia, Finger-Nose Abnormal or Heel-Lorenzo Abnormal Deep Tendon Reflexes: Rt Triceps: 2+, Lt Triceps: 2+, Rt Biceps: 2+, Lt Biceps: 2+, Rt Brachioradialis: 2+, Lt Brachioradialis: 2+, Rt Patellar: 2+, Lt Patellar: 2+, Rt Ankle: 2+ and Lt Ankle: 2+ Special Tests: negative Babinski Present Details: Gait not tested Results & Data Vital Signs (Past 12 Hours) Vital Signs Temp Pulse Pulse Resp BP Pulse Ox O2 Del Method 04/30/23 08:54 36.5 C 80 18 113/75 97 Room Air 04/30/23 07:07 60 04/30/23 04:20 36.4 C L 65 20 93/59 L 94 Room Air Laboratory Results WBC 4.37, hemoglobin 13.3, hematocrit 38.6, platelet count 238, sodium 140, potassium 3.9, BUN 8, creatinine 0.82, AST 23, ALT 32. UDS positive for benzodiazepines, otherwise negative. Diagnostic Findings CT of the head as described in the HPI. A CT of the cervical spine was negative for acute or traumatic abnormality. Electrocardiogram revealed a normal sinus rhythm. Coding Level of Care Code 40522 INT INP/OBS CARE Diagnoses Seizure R56.9 Seizure disorder G40.909
--- NOTE | 2023-04-30 12:02 | Hospitalist Progress Note ---
Date of Service April 30, 2023 Assessment & Plan (1) Seizure: Plan: -Admit to the PCU on tele -Currently stable and without seizure activity since ED arrival -Patient has a hx of both seizure disorder and conversion disorder with seizures or convulsions -Witnessed having seizures around 1730, did not break after 4 mg ativan at the senior living, did break after 10 mg of Versed -S/P 2gm IV keppra in the ED -At this time the etiology of his current episodes is unknown, no metabolic derangements on initial labs, alcohol level is negative, tox screen is in process -CT of the head and chest xray are negative -Patient denies missing doses of medications recently; [facility] confirmed that he has been on the same doses of Keppra and Carbamazepine since December of 2021 -He does have a history of alcohol abuse, he has been at [facility] for approximately 1 year, alcohol level negative, do not think he is in alcohol withdrawal at this time but will need to keep it on the differential for now -Patient is on Perphenazine, Ad mitting provider held this over concern that this could be causing his seizures HOwever given that this medicine has helped control his psychiatric symptoms and patient is on 2 anti seziure meds, will resume this medicine now. Elevated effexor dose may be causing his seizures, will await input from psych. -Neurology consult placed -Seizure precautions -BL SCD's for DVT PPX (2) Antisocial personality disorder: Plan: -Continue prazosin and Venlafaxine resume perphenazine. (3) Seizure disorder: Plan: -Continue Keppra and Carbamazepine (4) Conversion disorder with seizures or convulsions: Plan: -Monitor for possible seizure related activity related (5) Hypothyroidism: Plan: -Continue levothyroxine (6) HTN (hypertension): Plan: -Stable -Conitnue HCTZ (7) GERD (gastroesophageal reflux disease): Plan: -Conitnue PPI (8) Asthma: Plan: -Continue prn albuterol (9) Amphetamine abuse: Plan: -Monitor urine tox screen (10) Alcohol abuse: Plan: -Monitor for alcohol withdrawal -Would speak with him regarding possible alcohol obtain in the senior living when he is more alert Admission and Anticipated Discharge Date Admission Date: April 29, 2023 Subjective Patient reports feeling more calm. He reports he would prefer to continue the Perphenazine as this was the only medicine that was controlling his schizophrenia. Review of Systems Review of Systems: All systems reviewed & are unremarkable except as noted in HPI & below Physical Exam Physical Exam: General: In no acute distress, fatigued, non-toxic appearing HEENT: Normocephalic, atraumatic, no scleral icterus, pupils around round, symmetrical, and reactive to light, moist mucus membranes, trachea midline, no thyromegaly Chest/Pulm: No respiratory distress, symmetrical chest expansion, clear breath sounds throughout Cardiac: RRR, no murmurs noted Extremities: Radial, dorsalis pedis, and posterior tibial pulses are intact and symmetrical, no edema noted in the BL LE's Skin: Warm, dry, no rashes , lesions, or scars noted Psych: No acute distress Neuro: no focal defixits Results & Data Results & Data Vital Signs (Past 12 Hours) Vital Signs Temp Pulse Pulse Resp BP Pulse Ox O2 Del Method 04/30/23 08:54 36.5 C 80 18 113/75 97 Room Air 04/30/23 07:07 60 04/30/23 04:20 36.4 C L 65 20 93/59 L 94 Room Air PG Care Time/CCT Total # of Minutes Spent Total Time Spent with Patient: Total time spent is greater than 50% in coordination of care (as documented) at patient's floor/unit and/or counseling patient: Coding Level of Care Code 58397 SUB INP/OBS CARE 3/50MIN Diagnoses Seizure R56.9 Antisocial personality disorder F60.2 Seizure disorder G40.909 Conversion disorder with seizures or convulsions F44.5 Hypothyroidism E03.9 HTN (hypertension) I10 GERD (gastroesophageal reflux disease) K21.9 Asthma J45.909 Amphetamine abuse F15.10 Alcohol abuse F10.10
--- NOTE | 2023-04-30 14:39 | Psychiatric Consultation ---
Date of Consultation April 30, 2023 Impression / Recommendations Impression 28 yo male with a history of unspecified psychotic illness with anxiety and mood component (likely schizoaffectiv disorder) with a hx of seizure and apparently no epileptic spells as well, hx of substance abuse (less likely given incarceration but can't exlude benzo seeking) with postictal state resolved. No active psychiatric complaints at time of exam. His is on higher end of dosing of Effexor XR and perphenazine but likely tolerating due to autoinduction of Tegretol causing lower effective dose. (1) Altered mental status: Plan resume psychiatric meds at previous doses as reportedly effective and patient aware of risks, neuro has already weighed in that OK from a seizure perspective. if ends of being switched off of Tegretol would then decrease doses as will no longer be a super metabolizer. Psych History Identifying Data 28 yo male, currently incarcerated, currently shackled with guard at bedside. Admit to [facility] for monitoring following a seizure. Tragetted consult for assist with psychiatric medication dosing given recent seizure. Chief Complaint "My meds have helped overall and I don't like being a guinea pig." History of Present Illness Patient has no memory of seizure event. Believes it may have been triggered by stress as it was his birthday and his mother is having health issues. He is aware that psychiatric medications can alter seizure threshhold but has not experienced this and denies recent changes in psych meds. Per neuro Tegretol is more recent addition to antiseizure regimen. Reportedly has been on Effexor XR since age 15 and has declined decrease. 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 Earlier woke up a bit more confused and repeatedly requested prn from nursing so consult prioritized. He says he "feel like shit" following seizure event but otherwise denies anxiety/depression/SI and was not responding to internal stimuli. Did not elaborate inpatient psych hx or family hx, reports his diagnosis is a form of schizophrenia. Allergies Allergy/AdvReac Type Severity Reaction Status Date / Time Carbapenems Allergy Unknown Unknown Verified 04/29/23 19:48 Cephalosporins Allergy Unknown Unknown Verified 04/29/23 19:48 Penicillins Allergy Unknown Unknown Verified 04/29/23 19:48 polyethylene glycol Allergy Unknown Unknown Verified 04/29/23 19:48 shellfish derived Allergy Unknown Unknown Verified 04/29/23 19:48 ziprasidone [From Geodon] Allergy Unknown Unknown Verified 04/29/23 19:48 Home Medications Medication Instructions Recorded Confirmed Type albuterol sulfate 90 mcg/actuation 2 puff inhalation QID PRN Wheezing 04/29/23 04/29/23 History aerosol inhaler atorvastatin 20 mg tablet 20 mg PO DAILY 04/29/23 04/29/23 History carbamazepine 200 mg tablet 300 mg PO TID 04/29/23 04/29/23 History hydrochlorothiazide 25 mg tablet 50 mg PO DAILY 04/29/23 04/29/23 History levetiracetam 500 mg tablet 500 mg PO BID 04/29/23 04/29/23 History levothyroxine 75 mcg tablet 75 mcg PO QAM 04/29/23 04/29/23 History omeprazole 20 mg capsule,delayed 20 mg PO DAILY 04/29/23 04/29/23 History release perphenazine 16 mg tablet 16 mg PO BID 04/29/23 04/29/23 History prazosin 2 mg capsule 4 mg PO HS 04/29/23 04/29/23 History venlafaxine 150 mg 300 mg PO HS 04/29/23 04/29/23 History capsule,extended release 24 hr venlafaxine 75 mg capsule,extended 75 mg PO HS 04/29/23 04/29/23 History release 24 hr Patient History Medical History (Updated 04/30/23 @ 14:34 by Loreta Monreal MD) Alcohol abuse Amphetamine abuse Antisocial personality disorder Asthma Conversion disorder with seizures or convulsions GERD (gastroesophageal reflux disease) HTN (hypertension) Hypothyroidism Schizoaffective disorder Seizure disorder Social History Smoking Status: Current some day smoker Do You Dip or Chew Tobacco: Yes; Hx Alcohol Use: No Preferred Language: Wallisian Desk Clerk Required: No Beliefs That Will Affect Care: None Current Living Situation: Other Current Living Situation Comment: [facility] Feels Safe at Home: Yes Physical Exam Psychiatric: Orientation: alert and oriented x 3 Apperance: appropriately groomed Eye Contact: good eye contact Motor Behavior: no abnormal motor movements Speech: normal rate/rhythm/volume of speech Affect: euthymic affect Mood: no depressed mood Thought Process: goal directed thought process Thought Content: reality based without delusions Suicidal Thoughts: denies suicidal thoughts Homicidal Thoughts: denies homicidal thoughts Hallucinations: no auditory hallucinations and no visual hallucinations Cognition: attention grossly intact and language grossly intact Estimated Intelligence: consistent with education level Vital Signs (Past 24 Hours): Last Vital Signs Temp 37.0 C 04/30/23 11:00 Pulse 74 04/30/23 11:00 Resp 74 H 04/30/23 11:00 BP 108/76 04/30/23 11:00 Pulse Ox 97 04/30/23 11:00 O2 Del Method Room Air 04/30/23 11:00 Review of Systems All systems reviewed & are unremarkable except as noted in HPI & below Results & Data (PSY) Laboratory Results 04/30/23 04/30/23 04/30/23 Range/Units 07:47 06:26 06:26 WBC 4.37 L (4.8-10.8) K/ul RBC 4.35 L (4.70-6.10) M/uL Hgb 13.3 L (14.0-18.0) g/dl Hct 38.6 L (42.0-52.0) % MCV 88.7 (80.0-100.0) fL MCH 30.6 (25.0-34.0) pg MCHC 34.5 (32.0-36.0) g/dL RDW Std Deviation 45.0 (36.4-46.3) fL RDW Coeff of Taras 13.8 (11.5-14.5) % Plt Count 238 (130-400) K/uL MPV 9.7 (9.4-12.4) fL Immature Gran % (Auto) 0.2 % Neut % (Auto) 63.7 % Lymph % (Auto) 24.7 % [place] % (Auto) 8.2 % Eos % (Auto) 2.3 % Baso % (Auto) 0.9 % Neut # (Auto) 2.78 (1.40-6.50) K/uL Lymph # (Auto) 1.08 L (1.20-3.40) K/uL [place] # (Auto) 0.36 (0.11-0.59) K/uL Eos # (Auto) 0.10 (0.00-0.50) K/uL Baso # (Auto) 0.04 (0.00-0.20) K/uL Immature Gran # (Auto) 0.01 (0.01-0.20) K/uL Sodium 140 (136-145) mmol/L Potassium 3.9 TNP (3.5-5.1) mmol/L Chloride 107 (98-107) mmol/L Carbon Dioxide 26 (21-32) mmol/L Anion Gap 7 (3-11) BUN 8 (6-23) mg/dl Creatinine 0.82 (0.6-1.4) mg/dl Est Cr Clr Drug Dosing 161.2 Est GFR ( Amer) 138.5 ml/min Est GFR (Non-Af Amer) 119.5 ml/min BUN/Creatinine Ratio 9.8 L (10-20) Glucose 97 (70-99(Fasting)) mg/dl Calcium 9.0 (8.6-10.3) mg/dl Magnesium 1.9 (1.7-2.4) mg/dl Total Bilirubin 0.2 (0.2-1.0) mg/dl AST 23 TNP (13-39) U/L ALT 32 (7-52) U/L Alkaline Phosphatase 92 (34-104) U/L Total Protein 6.7 (6.0-8.3) gm/dl Albumin 4.1 (3.4-5.0) gm/dl Globulin 2.6 (2.5-4.0) gm/dl Albumin/Globulin Ratio 1.6 (0.9-2) Urine Color Urine Appearance (Clear) Urine pH (4.5-7.5) Ur Specific Chapin (1.000-1.030) Urine Protein (Negative) Urine Glucose (UA) (Negative) Urine Ketones (Negative) Urine Blood (Negative) Urine Nitrite (Negative) Urine Bilirubin (Negative) Urine Urobilinogen (Negative) Ur Leukocyte Esterase (Negative) Nasal Screen MRSA (PCR) (Negative) Urine Opiates Screen (Neg) Ur Methadone, Qual (Neg) Urine Barbiturates (Neg) Ur Phencyclidine (PCP) (Neg) U Amphetamin/Meth Scrn (Neg) MDMA (Ecstasy) Screen (Neg) U OH-Alprazolam Confrm U Benzodiazepines Scrn (Neg) 7-Amino Clonazepam Ur Nordiazepam Confirm U OH-ethylflurazepam U Lorazepam Cnf GC/MS U Oxazepam Confm GC/MS Ur Temazepam Confirm U OH-Triazolam Confirm U OH-Midazolam Confirm Ur Cocaine Metabolite (Neg) U Marijuana (THC) Screen (Neg) Drug Screen Comment Ethyl Alcohol mg/dL (<10.0) mg/dl SARS-CoV-2, RNA, NAAT (NEGATIVE) 04/30/23 04/29/23 04/29/23 Range/Units 02:25 20:14 19:20 WBC (4.8-10.8) K/ul RBC (4.70-6.10) M/uL Hgb (14.0-18.0) g/dl Hct (42.0-52.0) % MCV (80.0-100.0) fL MCH (25.0-34.0) pg MCHC (32.0-36.0) g/dL RDW Std Deviation (36.4-46.3) fL RDW Coeff of Taras (11.5-14.5) % Plt Count (130-400) K/uL MPV (9.4-12.4) fL Immature Gran % (Auto) % Neut % (Auto) % Lymph % (Auto) % [place] % (Auto) % Eos % (Auto) % Baso % (Auto) % Neut # (Auto) (1.40-6.50) K/uL Lymph # (Auto) (1.20-3.40) K/uL [place] # (Auto) (0.11-0.59) K/uL Eos # (Auto) (0.00-0.50) K/uL Baso # (Auto) (0.00-0.20) K/uL Immature Gran # (Auto) (0.01-0.20) K/uL Sodium (136-145) mmol/L Potassium (3.5-5.1) mmol/L Chloride (98-107) mmol/L Carbon Dioxide (21-32) mmol/L Anion Gap (3-11) BUN (6-23) mg/dl Creatinine (0.6-1.4) mg/dl Est Cr Clr Drug Dosing Est GFR ( Amer) ml/min Est GFR (Non-Af Amer) ml/min BUN/Creatinine Ratio (10-20) Glucose (70-99(Fasting)) mg/dl Calcium (8.6-10.3) mg/dl Magnesium (1.7-2.4) mg/dl Total Bilirubin (0.2-1.0) mg/dl AST (13-39) U/L ALT (7-52) U/L Alkaline Phosphatase (34-104) U/L Total Protein (6.0-8.3) gm/dl Albumin (3.4-5.0) gm/dl Globulin (2.5-4.0) gm/dl Albumin/Globulin Ratio (0.9-2) Urine Color Urine Appearance (Clear) Urine pH (4.5-7.5) Ur Specific Chapin (1.000-1.030) Urine Protein (Negative) Urine Glucose (UA) (Negative) Urine Ketones (Negative) Urine Blood (Negative) Urine Nitrite (Negative) Urine Bilirubin (Negative) Urine Urobilinogen (Negative) Ur Leukocyte Esterase (Negative) Nasal Screen MRSA (PCR) Negative (Negative) Urine Opiates Screen (Neg) Ur Methadone, Qual (Neg) Urine Barbiturates (Neg) Ur Phencyclidine (PCP) (Neg) U Amphetamin/Meth Scrn (Neg) MDMA (Ecstasy) Screen (Neg) U OH-Alprazolam Confrm Pending U Benzodiazepines Scrn (Neg) 7-Amino Clonazepam Pending Ur Nordiazepam Confirm Pending U OH-ethylflurazepam Pending U Lorazepam Cnf GC/MS Pending U Oxazepam Confm GC/MS Pending Ur Temazepam Confirm Pending U OH-Triazolam Confirm Pending U OH-Midazolam Confirm Pending Ur Cocaine Metabolite (Neg) U Marijuana (THC) Screen (Neg) Drug Screen Comment Pending Ethyl Alcohol mg/dL (<10.0) mg/dl SARS-CoV-2, RNA, NAAT NEGATIVE (NEGATIVE) 04/29/23 04/29/23 04/29/23 Range/Units 19:20 19:20 18:39 WBC (4.8-10.8) K/ul RBC (4.70-6.10) M/uL Hgb (14.0-18.0) g/dl Hct (42.0-52.0) % MCV (80.0-100.0) fL MCH (25.0-34.0) pg MCHC (32.0-36.0) g/dL RDW Std Deviation (36.4-46.3) fL RDW Coeff of Taras (11.5-14.5) % Plt Count (130-400) K/uL MPV (9.4-12.4) fL Immature Gran % (Auto) % Neut % (Auto) % Lymph % (Auto) % [place] % (Auto) % Eos % (Auto) % Baso % (Auto) % Neut # (Auto) (1.40-6.50) K/uL Lymph # (Auto) (1.20-3.40) K/uL [place] # (Auto) (0.11-0.59) K/uL Eos # (Auto) (0.00-0.50) K/uL Baso # (Auto) (0.00-0.20) K/uL Immature Gran # (Auto) (0.01-0.20) K/uL Sodium (136-145) mmol/L Potassium (3.5-5.1) mmol/L Chloride (98-107) mmol/L Carbon Dioxide (21-32) mmol/L Anion Gap (3-11) BUN (6-23) mg/dl Creatinine (0.6-1.4) mg/dl Est Cr Clr Drug Dosing Est GFR ( Amer) ml/min Est GFR (Non-Af Amer) ml/min BUN/Creatinine Ratio (10-20) Glucose (70-99(Fasting)) mg/dl Calcium (8.6-10.3) mg/dl Magnesium (1.7-2.4) mg/dl Total Bilirubin (0.2-1.0) mg/dl AST (13-39) U/L ALT (7-52) U/L Alkaline Phosphatase (34-104) U/L Total Protein (6.0-8.3) gm/dl Albumin (3.4-5.0) gm/dl Globulin (2.5-4.0) gm/dl Albumin/Globulin Ratio (0.9-2) Urine Color Yellow Urine Appearance Clear (Clear) Urine pH 8.0 H (4.5-7.5) Ur Specific Chapin 1.011 (1.000-1.030) Urine Protein Negative (Negative) Urine Glucose (UA) Negative (Negative) Urine Ketones Negative (Negative) Urine Blood Negative (Negative) Urine Nitrite Negative (Negative) Urine Bilirubin Negative (Negative) Urine Urobilinogen Negative (Negative) Ur Leukocyte Esterase Negative (Negative) Nasal Screen MRSA (PCR) (Negative) Urine Opiates Screen Neg (Neg) Ur Methadone, Qual Neg (Neg) Urine Barbiturates Neg (Neg) Ur Phencyclidine (PCP) Neg (Neg) U Amphetamin/Meth Scrn Neg (Neg) MDMA (Ecstasy) Screen Neg (Neg) U OH-Alprazolam Confrm U Benzodiazepines Scrn Pos H (Neg) 7-Amino Clonazepam Ur Nordiazepam Confirm U OH-ethylflurazepam U Lorazepam Cnf GC/MS U Oxazepam Confm GC/MS Ur Temazepam Confirm U OH-Triazolam Confirm U OH-Midazolam Confirm Ur Cocaine Metabolite Neg (Neg) U Marijuana (THC) Screen Neg (Neg) Drug Screen Comment Ethyl Alcohol mg/dL < 10.0 (<10.0) mg/dl SARS-CoV-2, RNA, NAAT (NEGATIVE) 04/29/23 04/29/23 Range/Units 18:39 18:39 WBC 4.42 L (4.8-10.8) K/ul RBC 4.68 L (4.70-6.10) M/uL Hgb 14.1 (14.0-18.0) g/dl Hct 41.4 L (42.0-52.0) % MCV 88.5 (80.0-100.0) fL MCH 30.1 (25.0-34.0) pg MCHC 34.1 (32.0-36.0) g/dL RDW Std Deviation 44.2 (36.4-46.3) fL RDW Coeff of Taras 13.7 (11.5-14.5) % Plt Count 278 (130-400) K/uL MPV 9.7 (9.4-12.4) fL Immature Gran % (Auto) 0.7 % Neut % (Auto) 62.4 % Lymph % (Auto) 23.1 % [place] % (Auto) 10.6 % Eos % (Auto) 2.3 % Baso % (Auto) 0.9 % Neut # (Auto) 2.76 (1.40-6.50) K/uL Lymph # (Auto) 1.02 L (1.20-3.40) K/uL [place] # (Auto) 0.47 (0.11-0.59) K/uL Eos # (Auto) 0.10 (0.00-0.50) K/uL Baso # (Auto) 0.04 (0.00-0.20) K/uL Immature Gran # (Auto) 0.03 (0.01-0.20) K/uL Sodium 140 (136-145) mmol/L Potassium 4.2 (3.5-5.1) mmol/L Chloride 107 (98-107) mmol/L Carbon Dioxide 29 (21-32) mmol/L Anion Gap 4 (3-11) BUN 10 (6-23) mg/dl Creatinine 0.94 (0.6-1.4) mg/dl Est Cr Clr Drug Dosing Not Reportable Est GFR ( Amer) 126.5 ml/min Est GFR (Non-Af Amer) 109.1 ml/min BUN/Creatinine Ratio 10.6 (10-20) Glucose 92 (70-99(Fasting)) mg/dl Calcium 9.1 (8.6-10.3) mg/dl Magnesium 1.8 (1.7-2.4) mg/dl Total Bilirubin 0.2 (0.2-1.0) mg/dl AST 27 (13-39) U/L ALT 34 (7-52) U/L Alkaline Phosphatase 100 (34-104) U/L Total Protein 7.3 (6.0-8.3) gm/dl Albumin 4.4 (3.4-5.0) gm/dl Globulin 2.9 (2.5-4.0) gm/dl Albumin/Globulin Ratio 1.5 (0.9-2) Urine Color Urine Appearance (Clear) Urine pH (4.5-7.5) Ur Specific Chap[place] (1.000-1.030) Urine Protein (Negative) Urine Glucose (UA) (Negative) Urine Ketones (Negative) Urine Blood (Negative) Urine Nitrite (Negative) Urine Bilirubin (Negative) Urine Urobilinogen (Negative) Ur Leukocyte Esterase (Negative) Nasal Screen MRSA (PCR) (Negative) Urine Opiates Screen (Neg) Ur Methadone, Qual (Neg) Urine Barbiturates (Neg) Ur Phencyclidine (PCP) (Neg) U Amphetamin/Meth Scrn (Neg) MDMA (Ecstasy) Screen (Neg) U OH-Alprazolam Confrm U Benzodiazepines Scrn (Neg) 7-Amino Clonazepam Ur Nordiazepam Confirm U OH-ethylflurazepam U Lorazepam Cnf GC/MS U Oxazepam Confm GC/MS Ur Temazepam Confirm U OH-Triazolam Confirm U OH-Midazolam Confirm Ur Cocaine Metabolite (Neg) U Marijuana (THC) Screen (Neg) Drug Screen Comment Ethyl Alcohol mg/dL (<10.0) mg/dl SARS-CoV-2, RNA, NAAT (NEGATIVE) Medications Administered Atorvastatin Calcium (Atorvastatin 20 Mg Tab) 20 mg PO DAILY ZULMA Stop: 05/30/23 08:59 Last Admin: 04/30/23 08:52 Dose: 20 mg Documented By: MS Carbamazepine (Carbamazepine 200 Mg Tablet) 300 mg PO TID ZULMA Stop: 05/30/23 08:59 Last Admin: 04/30/23 08:52 Dose: 300 mg Documented By: MS Hydrochlorothiazide (Hydrochlorothiazide 25 Mg Tab) 50 mg PO DAILY ZULMA Stop: 05/30/23 08:59 Last Admin: 04/30/23 08:52 Dose: 50 mg Documented By: MS Levetiracetam (Levetiracetam 500 Mg Tab) 500 mg PO BID ZULMA Stop: 05/30/23 08:59 Last Admin: 04/30/23 08:51 Dose: 500 mg Documented By: Levothyroxine Sodium (Levothyroxine Sodium 75 Mcg Tablet) 75 mcg PO DAILYBB [facility] Stop: 05/30/23 06:29 Last Admin: 04/30/23 05:45 Dose: 75 mcg Documented By: LEONCIO Lorazepam (Lorazepam 2 Mg/1 Ml Vial) 1 mg IV Q2H PRN PRN Reason: Anxiety/Agitation Stop: 05/30/23 10:22 Last Admin: 04/30/23 10:35 Dose: 1 mg Documented By: MS Miscellaneous (Remove Nicoderm Patch) 1 each N/A DAILY@[id number] [facility] Stop: 05/30/23 08:58 Last Admin: 04/30/23 08:52 Dose: 1 each Documented By: MS Nicotine (Nicotine 21 Mg/24 Hr Tdsy) 21 mg TD QAM [facility] Stop: 05/29/23 22:54 Last Admin: 04/30/23 08:50 Dose: 21 mg Documented By: Admin: 04/29/23 23:03 Dose: 21 mg Documented By: KJS Pantoprazole Sodium (Pantoprazole 40 Mg Tab) 40 mg PO DAILY ZULMA Stop: 05/30/23 08:59 Last Admin: 04/30/23 08:51 Dose: 40 mg Documented By: MS Prazosin HCl (Prazosin Hcl 1 Mg Cap) 4 mg PO HS ZULMA Stop: 05/29/23 22:04 Last Admin: 04/29/23 22:45 Dose: 4 mg Documented By: LEONCIO Coding Level of Care Code 78274 [facility] Hosp Care Lvl 2 Diagnoses Altered mental status R41.82
[2023-04-30] MEDS: PRAZOSIN HCL 1 MG CAP PO SCH (20:06)
[2023-04-30] MEDS: PERPHENAZINE 2 MG TABLET PO SCH (20:06)
[2023-05-01] MEDS: LORazepam 2 MG/1 ML VIAL IV PRN ×4 (01:41→12:59)
[2023-05-01] MEDS: LEVOTHYROXINE SODIUM 75 MCG TABLET PO SCH (05:41)
[2023-05-01 07:34] LABS: Basophils # (auto) 0.03 K/uL (0.00-0.20); Basophils % (auto) 0.6 %; Eosinophils # (auto) 0.12 K/uL (0.00-0.50); Eosinophils % (auto) 2.4 %; Hematocrit (blood only) 41.2 % (42.0-52.0); Immature Granulocytes # (auto) 0.02 K/uL (0.01-0.20); Immature Granulocytes % (auto) 0.4 %; Lymphocytes # (auto) 1.22 K/uL (1.20-3.40); Lymphocytes % (auto) 24.2 %; Mean Corpuscular Hemoglobin 29.9 pg (25.0-34.0); Mean Corpuscular Volume 87.8 fL (80.0-100.0); Mean Platelet Volume 9.7 fL (9.4-12.4); Monocytes # (auto) 0.48 K/uL (0.11-0.59); Monocytes % (auto) 9.5 %; Neutrophils # (auto) 3.17 K/uL (1.40-6.50); Neutrophils % (auto) 62.9 %; Platelet Count 268 K/uL (130-400); RDW Coefficient of Variation 13.8 % (11.5-14.5); RDW Standard Deviation 43.9 fL (36.4-46.3); Red Blood Count 4.69 M/uL (4.70-6.10); White Blood Count 5.04 K/ul (4.8-10.8)
[2023-05-01 07:53] LABS: Albumin Globulin Ratio 1.4 (0.9-2); Albumin Level 4.2 gm/dl (3.4-5.0); BUN Creatinine Ratio 14.6 (10-20); Bilirubin,Total 0.2 mg/dl (0.2-1.0); Calcium 9.1 mg/dl (8.6-10.3); Creatinine Clr Calc Pharmacy 161.2 ml/min; Est GFR (African American) 138.5 ml/min; Est GFR (Non-African American) 119.5 ml/min; Globulin 2.9 gm/dl (2.5-4.0); Potassium 3.4 mmol/L (3.5-5.1); Total Protein 7.1 gm/dl (6.0-8.3)
[2023-05-01] MEDS: carBAMazepine 200 MG TABLET PO SCH ×2 (09:14→12:59)
[2023-05-01] MEDS: PANTOprazole 40 MG TAB PO SCH (09:14)
[2023-05-01] MEDS: ATORVASTATIN 20 MG TAB PO SCH (09:15)
[2023-05-01] MEDS: hydroCHLOROthiazide 25 MG TAB PO SCH (09:15)
[2023-05-01] MEDS: levETIRAcetam 500 MG TAB PO SCH (09:15)
[2023-05-01] MEDS: PERPHENAZINE 2 MG TABLET PO SCH (09:15)
[2023-05-01] MEDS: NICOTINE 21 MG/24 HR TDSY TD SCH (09:16)
--- NOTE | 2023-05-01 12:26 | Discharge Summary ---
Date of Service May 01, 2023 Admission HPI Per Admitting Provider Vin is a 28 year old male with a PMH significant for seizure disorder, hypothyroidism, schizoaffective disorder, bipolar type, antisocial personality disorder, alcohol use disorder, amphetamine abuse, who presented to the [facility] ED from [facility] via ALS for seizures. Per the ED staff, the patient has a hx of seizures and was acting strange in his cell earlier tonight. Guards then witnessed the patient starting to have seizures. The patient was given 2, 2 mg doses of Ativan at the [facility] without resolution of seizures. EMS gave the patient 10 mg Versed in route and his seizures broke. In the ED the patient was noted to be tachycardic at 102 and tachypneic at 28 but otherwise stable. CBC, CMP, and UA were unremarkable. Prior to admission the patient was given 2gm IV keppra and 1L NSS. At the time of the exam the patient was lying in bed in no acute distress. He is very fatigued due to recent seizures and large amount of benzodiazepines. He confirms that he has a history of seizures and states that he is currently on Carbamazapine and Keppra (confirmed by med rec). He denies recent fever, chills, chest pain, SOB, nausea, vomiting, trauma, cough, nausea, vomiting, diarrhea, dysuria, hematuria. When asked, he states he is having abdominal pain but is unable to give further details. I called and spoke to the [facility] who was able to confirm that he has been on Carbamazepine and Keppra, unfortunately they were unable to provider further information at that time. Please refer to Dr. Agosto's attestation for any changes to the treatment plan Principal Diagnosis seizure Discharge Exam General: In no acute distress, fatigued, non-toxic appearing HEENT: Normocephalic, atraumatic Chest/Pulm: No respiratory distress, symmetrical chest expansion, clear breath sounds throughout Cardiac: RRR, no murmurs noted Extremities: Radial, dorsalis pedis, and posterior tibial pulses are intact and symmetrical, no edema noted in the BL LE's Skin: Warm, dry, no rashes , lesions, or scars noted Psych: No acute distress Neuro: no focal deficits Discharge Data Allergies Allergy/AdvReac Type Severity Reaction Status Date / Time Carbapenems Allergy Unknown Unknown Verified 04/29/23 19:48 Cephalosporins Allergy Unknown Unknown Verified 04/29/23 19:48 Penicillins Allergy Unknown Unknown Verified 04/29/23 19:48 polyethylene glycol Allergy Unknown Unknown Verified 04/29/23 19:48 shellfish derived Allergy Unknown Unknown Verified 04/29/23 19:48 ziprasidone [From Geodon] Allergy Unknown Unknown Verified 04/29/23 19:48 Consultations 04/29/23 19:48 ED Decision to Admit Stat 04/29/23 20:42 Consult Neurology Routine Assessment & Plan (1) Seizure: (2) Seizure disorder: Plan 28-year-old male prisoner with a history of seizure disorder, reportedly beginning as a teenager, historically improved control after carbamazepine was added to his levetiracetam. However, patient now presents with a breakthrough seizure, although did relate to me that he had an episode of nausea and vomiting 2 days prior to this recent event, yet, denies any ongoing GI symptoms. I will order a carbamazepine trough level for tomorrow morning. He was given 2 g of levetiracetam in the emergency department. Would continue with Keppra 500 mg twice daily. Review results of carbamazepine level when available. If there is room to increase the dosage of this medication, would do so. (I would rather increase the dosage of carbamazepine, if able, rather than increasing his dosage of levetiracetam given his mood disorder with associated psychosis.) If, however, there is no room to increase the carbamazepine level, would consider starting lamotrigine, 25 mg twice daily with gradual weekly up titration to 200 to 300 mg/day, or further if necessary. Would then consider tapering off levetiracetam going forward (again, would only add lamotrigine if there is no room to increase his dosage of carbamazepine. I do not think an EEG is necessary at this time as it would not acutely alter his management. An outpatient EEG could be considered. It would not be unreasonable to obtain a gadolinium-enhanced brain MRI, seizure protocol during this hospitalization. Follow-up with psychiatry consultation. Patient reports that perphenazine has been an effective antipsychotic medication for him. It is not unreasonable to continue with this medication as he is on 2 antiseizure medications as well. Again, follow-up with specific recommendations from psychiatry when available. 04/30/23 09:02 Consult Psychiatry Routine Impression / Recommendations Impression 28 yo male with a history of unspecified psychotic illness with anxiety and mood component (likely schizoaffectiv disorder) with a hx of seizure and apparently no epileptic spells as well, hx of substance abuse (less likely given incarceration but can't exlude benzo seeking) with postictal state resolved. No active psychiatric complaints at time of exam. His is on higher end of dosing of Effexor XR and perphenazine but likely tolerating due to autoinduction of Tegretol causing lower effective dose. (1) Altered mental status: Plan resume psychiatric meds at previous doses as reportedly effective and patient aware of risks, neuro has already weighed in that OK from a seizure perspective. if ends of being switched off of Tegretol would then decrease doses as will no longer be a super metabolizer. Ordered Studies 04/29/23 18:22 CT head/brain wo con Stat 04/29/23 18:32 CT cervical spine wo con Stat Hospital Course (1) Seizure: -Admit to the PCU on tele -Currently stable and without seizure activity since ED arrival -Patient has a hx of both seizure disorder and conversion disorder with seizures or convulsions -Witnessed having seizures around 1730, did not break after 4 mg ativan at the [place] [facility], did break after 10 mg of Versed -S/P 2gm IV keppra in the ED -At this time the etiology of his current episodes is unknown, no metabolic derangements on initial labs, alcohol level is negative, tox screen is in process -CT of the head and chest xray are negative -Patient denies missing doses of medications recently; [facility] confirmed that he has been on the same doses of Keppra and Carbamazepine since December of 2021 -He does have a history of alcohol abuse, he has been at [facility] for approximately 1 year, alcohol level negative, do not think he is in alcohol withdrawal at this time but will need to keep it on the differential for now -Patient is on Perphenazine, will continue this medicine. Appreciate input from Neurology increase carbamazepine from 300 mg PO TID to 300 mg in AM, and Noon, and 400mg in the evening. (2) Antisocial personality disorder: -Continue prazosin and Venlafaxine (3) Seizure disorder: -Continue Keppra and Carbamazepine (4) Conversion disorder with seizures or convulsions: -Monitor for possible seizure related activity related (5) Hypothyroidism: -Continue levothyroxine (6) HTN (hypertension): -Stable -Conitnue HCTZ (7) GERD (gastroesophageal reflux disease): -Conitnue PPI (8) Asthma: -Continue prn albuterol (9) Amphetamine abuse: -Monitored urine tox screen (10) Alcohol abuse: -Monitored for alcohol withdrawal Total Time Total Time Spent Total Time Spent (In Minutes): 32 Discharge Plan Discharge Items [facility] Disposition: [facility] Reason For Visit: SEIZURES Discharge Diagnosis: Seziures Activity: Resume your previous activity Non-emergency contact: Primary Care Provider Call non-emergency contact if: you have any medication questions Follow-up/Referrals: Rajiv WATSON [Primary Care Provider] - Diet: Regular Addtl Attending Provider Instructions: increase carbamazepine from 300 mg PO TID to 300 mg in AM, and Noon, and 400mg in the evening. Pending Studies at Discharge: No Stand-Alone Forms: My [facility] Skilled Items Patient informed of condition?: Yes Discharge Level of Care: Other Communicable Disease: No Discharge Prognosis: Stable Lines: None Urinary Catheter: No Medications and DC Order Prescriptions: New carbamazepine 200 mg tablet 400 mg PO HS Qty: 60 0RF Continued venlafaxine 75 mg Capsule,Extended Release 24hr 75 mg PO HS venlafaxine 150 mg Capsule,Extended Release 24hr 300 mg PO HS levothyroxine 75 mcg Tablet 75 mcg PO QAM omeprazole 20 mg Capsule,Delayed Release(Dr/Ec) 20 mg PO DAILY prazosin 2 mg Capsule 4 mg PO HS perphenazine 16 mg Tablet 16 mg PO BID atorvastatin 20 mg Tablet 20 mg PO DAILY albuterol sulfate 90 mcg/actuation Hfa Aerosol Inhaler 2 puff INHALATION QID PRN (Reason: Wheezing) levetiracetam 500 mg Tablet 500 mg PO BID hydrochlorothiazide 25 mg Tablet 50 mg PO DAILY Changed carbamazepine 200 mg Tablet 300 mg PO BID@0900,1200 28 Days Qty: 180 0RF Discharge Orders: Discharge Order (Routine); Ordered 05/01/23 Ordered By: Dandre Zelaya Admission Data Admit Date/Time: 04/29/23 20:04 Attending Provider: Dandre Zelaya Admit Provider: Bella Agosto Primary Care Provider: Rajiv WATSON Other Providers: Bella Agosto ; Vincenzo Scales ; Marisa Gonzalez ; Loreta Monreal ; Reyes Christy Other Interventions: Discharge Summary Assessment (RN) Last Done: 05/01/23 13:04 Coding Level of Care Code 70482 INP/OBS DISCH >30 MIN Diagnoses Seizure R56.9 Antisocial personality disorder F60.2 Seizure disorder G40.909 Conversion disorder with seizures or convulsions F44.5 Hypothyroidism E03.9 HTN (hypertension) I10 GERD (gastroesophageal reflux disease) K21.9 Asthma J45.909 Amphetamine abuse F15.10 Alcohol abuse F10.10
[2023-05-02 11:51] LABS: 7-Aminoclonaz, Confirm NEGATIVE ng/mL (<25); Hydro-Alp Ur, GC/MS NEGATIVE ng/mL (<25); Hydroxyethylflurazepam, Conf NEGATIVE ng/mL (<50); Hydroxymidazolam Ur, GC/MS >2000 ng/mL (<50); Hydroxytriazolam NEGATIVE ng/mL (<50); Lorazepam, Ur GC/MS 89 ng/mL (<50); Nordiazepam, Confirm NEGATIVE ng/mL (<50); Oxazepam Ur, GC/MS NEGATIVE ng/mL (<50); Temazepam, Confirm NEGATIVE ng/mL (<50)
== END 2023-05-01 14:10 | DRG 101 ==
LOC: ED 18:14 → 2S 20:04 → SUATTDRO 20:04 → 2S 21:45

== ENCOUNTER 2024-09-27 13:37 | Inpatient (IN) ==
--- NOTE | 2024-09-27 13:44 | Emergency Department Note ---
Impression & Plan Status epilepticus, Seizure ED Provider Note NAME: HOWARD [id number] YOLANDA AGE: 29 SEX: M : 1995 ARRIVES VIA: Ambulance INFORMANT: Patient ED PROVIDER(S): Jona Pelaez DO CHIEF COMPLAINT: Seizure HPI: Patient is a 29-year-old male with a past medical history of antisocial personality disorder, seizure disorder, conversion disorder, hypertension, asthma, alcohol abuse, anxiety and status epilepticus. Patient presents to the ER being found down is still seizing. He was given 2 of Ativan. He was transported via EMS and had another seizure. He started waking up just as he arrived to the ER. ADDITIONAL HISTORY OBTAINED: Per HPI Chronic Medical/Social Conditions Affecting Care: Per HPI PAST MEDICAL HISTORY:See Below PAST SURGICAL HISTORY:See Below FAMILY HISTORY:See Below SOCIAL HISTORY:See Below HOME MEDICATIONS:See Below ALLERGIES:See Below VITALS:See Below PHYSICAL EXAMINATION: GENERAL: Sitting up in bed, alert, well appearing, well nourished, no distress, non-toxic HEAD: NC/AT EYE EXAM: normal conjunctiva. PERRL and EOM's grossly intact. OROPHARYNX: no exudate, no erythema, lips, buccal mucosa, and tongue normal and mucous membranes are moist NECK: supple, no nuchal rigidity, no adenopathy, non-tender LUNGS: Clear to auscultation. Normal chest wall mechanics HEART: no murmurs, S1 normal and S2 normal ABDOMEN: abdomen soft, non-tender, normo-active bowel sounds, no masses, no rebound or guarding. BACK: Back is symmetrical on inspection and there is no deformity, no midline tenderness, no CVA tenderness. SKIN: no rashes and no bruising UPPER EXTREMITIES: upper extremities are grossly normal. LOWER EXTREMITIES: No pitting edema. NEURO EXAM: Normal sensorium, cranial nerves II-XII grossly intact, normal speech, no gross weakness of arms, no gross weakness of legs. MEDICAL DECISION MAKING: Patient is a 29-year-old male who presents ER for the below stated complaint. IV was established and blood work was obtained. Labs show no significant leukocytosis or anemia. BMP along with LFTs bilirubin was unremarkable. There is no acidosis. He did not bite his tongue. I question if this is a true seizure but cannot be certain. He did lose control of his bowel or bladder. He does have a seizure history. Troponin was negative. Lipase was normal. Pro- Joe was normal. UA was clean. Viral panel testing was negative. Initial temp was slightly elevated but was repeated immediately and was normal. Patient returned to baseline. CT of the head was negative. This was status as he had 2 seizures prior to arrival. He was given Keppra. Case was discussed with the hospitalist for further evaluation management treatment. Consults/Care Managements Discussions: Per [facility] Triage Nursing notes reviewed. Limited review of prior medical records performed Vital Signs: reviewed and remarkable for no significant abnormalities Differential diagnosis: Differential diagnosis includes etiologies such as infection, hypoglycemia, electrolyte abnormalities, cardiac sources, intracerebral event, trauma, toxicologic, neurologic, as well as others were entertained. ER treatment provided: See below Diagnostics interpreted by me include EKG and cardiac monitoring as listed below: -Cardiac Monitoring: An order was placed for continuous cardiac monitoring. The monitor shows a rate of 80 with sinus rhythm. -ECG: Sinus tachycardia rate of 104 Normal axis No PVCs QTc 415 -Laboratory studies:Interpreted by me as stated above in MDM and shown below. Imaging studies: Xrays: As interpreted by me: Portable AP upright 1 view of the chest shows no focal infiltrate CTs show: CT of the head was negative per radiology Procedures:none Critical Care: None Past Med/Surg History Problem List (Updated 09/27/24 @ 19:10 by Jona Pelaez DO) Altered mental status Antisocial personality disorder Seizure disorder Conversion disorder with seizures or convulsions Hypothyroidism HTN (hypertension) GERD (gastroesophageal reflux disease) Asthma Amphetamine abuse Alcohol abuse Status epilepticus (Acute) Anxiety Seizure (Acute) Medical History Schizoaffective disorder Alcohol abuse Amphetamine abuse Asthma GERD (gastroesophageal reflux disease) HTN (hypertension) Hypothyroidism Conversion disorder with seizures or convulsions Seizure disorder Antisocial personality disorder Social History Smoking Status: Never smoker Do You Dip or Chew Tobacco: Yes; Hx Alcohol Use: No Preferred Language: Faroese Workforce Consultant Required: No Beliefs That Will Affect Care: None Current Living Situation: Other Current Living Situation Comment: [facility] Feels Safe at Home: Yes Allergies Allergies Allergy/AdvReac Type Severity Reaction Status Date / Time Carbapenems Allergy Unknown Unknown Verified 09/27/24 15:45 Cephalosporins Allergy Unknown Unknown Verified 09/27/24 15:45 Penicillins Allergy Unknown Unknown Verified 09/27/24 15:45 polyethylene glycol Allergy Unknown Unknown Verified 09/27/24 15:45 shellfish derived Allergy Unknown Unknown Verified 09/27/24 15:45 ziprasidone [From Geodon] Allergy Unknown Unknown Verified 09/27/24 15:45 Home Meds Home Medications Medication Instructions Recorded Confirmed albuterol sulfate 90 mcg/actuation 2 puff inhalation QID PRN Wheezing 04/29/23 09/27/24 aerosol inhaler hydrochlorothiazide 25 mg tablet 50 mg PO DAILY 04/29/23 09/27/24 levetiracetam 500 mg tablet 500 mg PO BID 04/29/23 09/27/24 perphenazine 16 mg tablet 16 mg PO BID 04/29/23 09/27/24 venlafaxine 150 mg 300 mg PO HS 04/29/23 09/27/24 capsule,extended release 24 hr venlafaxine 75 mg capsule,extended 75 mg PO HS 04/29/23 09/27/24 release 24 hr carbamazepine 100 mg chewable 100 mg PO BID 09/27/24 09/27/24 tablet carbamazepine 200 mg tablet 200 mg PO BID 09/27/24 09/27/24 levothyroxine 88 mcg tablet 88 mcg PO DAILY 09/27/24 09/27/24 lisinopril 5 mg tablet 5 mg PO DAILY 09/27/24 09/27/24 prazosin 5 mg capsule 5 mg PO HS 09/27/24 09/27/24 rosuvastatin 5 mg tablet 5 mg PO DAILY 09/27/24 09/27/24 trazodone 150 mg tablet 150 mg PO HS 09/27/24 09/27/24 Previous Rx's Medication Instructions Recorded carbamazepine 200 mg tablet 400 mg (2 x 200 mg) PO HS #60 tabs 05/01/23 Results & Data (ED) Vital Signs Vital Signs - 24 hr 09/27/24 13:39 09/27/24 13:40 09/27/24 13:42 Temperature 37.8 C H Temperature Source Oral Pulse Rate 104 H 102 H Pulse Rate [Apical] Pulse Rate from SpO2 Sensor Respiratory Rate 18 Respiratory Effort / Characteristics Respiratory Depth Respiratory Pattern Blood Pressure 109/87 109/87 Blood Pressure [Right Arm] Blood Pressure Mean 93 94 Blood Pressure Mean [Right Arm] Pulse Oximetry 96 Oxygen Delivery Method Room Air Oxygen Flow Rate Sepsis Recent Fever Within 48 Hours No Sepsis New/Unexplained Change in Mental Status No Sepsis Action Taken by Nursing No Action Required 09/27/24 13:42 09/27/24 13:53 09/27/24 13:54 Temperature Temperature Source Pulse Rate 104 H Pulse Rate [Apical] Pulse Rate from SpO2 Sensor 103 H Respiratory Rate 22 Respiratory Effort / Characteristics Respiratory Depth Respiratory Pattern Blood Pressure 106/80 Blood Pressure [Right Arm] Blood Pressure Mean 86 Blood Pressure Mean [Right Arm] Pulse Oximetry 95 94 Oxygen Delivery Method Room Air Oxygen Flow Rate Sepsis Recent Fever Within 48 Hours Sepsis New/Unexplained Change in Mental Status Sepsis Action Taken by Nursing 09/27/24 13:54 09/27/24 14:00 09/27/24 14:06 Temperature 36.8 C Temperature Source Oral Pulse Rate 98 H 98 H Pulse Rate [Apical] Pulse Rate from SpO2 Sensor 99 H 99 H Respiratory Rate 15 16 Respiratory Effort / Characteristics Respiratory Depth Respiratory Pattern Blood Pressure Blood Pressure [Right Arm] Blood Pressure Mean Blood Pressure Mean [Right Arm] Pulse Oximetry 94 93 Oxygen Delivery Method Oxygen Flow Rate Sepsis Recent Fever Within 48 Hours Sepsis New/Unexplained Change in Mental Status Sepsis Action Taken by Nursing 09/27/24 14:15 09/27/24 14:16 09/27/24 14:18 Temperature Temperature Source Pulse Rate 107 H Pulse Rate [Apical] Pulse Rate from SpO2 Sensor 108 H Respiratory Rate 15 20 Respiratory Effort / Characteristics Respiratory Depth Respiratory Pattern Blood Pressure 127/89 Blood Pressure [Right Arm] Blood Pressure Mean 112 Blood Pressure Mean [Right Arm] Pulse Oximetry 96 97 Oxygen Delivery Method Oxygen Flow Rate Sepsis Recent Fever Within 48 Hours Sepsis New/Unexplained Change in Mental Status Sepsis Action Taken by Nursing 09/27/24 14:30 09/27/24 14:30 09/27/24 15:00 Temperature Temperature Source Pulse Rate 99 H 93 H Pulse Rate [Apical] Pulse Rate from SpO2 Sensor 101 H 92 H Respiratory Rate 16 16 Respiratory Effort / Characteristics Respiratory Depth Respiratory Pattern Blood Pressure 128/91 110/83 Blood Pressure [Right Arm] Blood Pressure Mean 99 92 Blood Pressure Mean [Right Arm] Pulse Oximetry 96 97 Oxygen Delivery Method Room Air Oxygen Flow Rate Sepsis Recent Fever Within 48 Hours Sepsis New/Unexplained Change in Mental Status Sepsis Action Taken by Nursing 09/27/24 15:17 09/27/24 15:25 09/27/24 16:00 Temperature Temperature Source Pulse Rate Pulse Rate [Apical] 97 H Pulse Rate from SpO2 Sensor Respiratory Rate 20 Respiratory Effort / Characteristics Non-Labored Spontaneous Respiratory Depth Normal Respiratory Pattern Regular Blood Pressure 115/80 Blood Pressure [Right Arm] 113/80 Blood Pressure Mean 93 Blood Pressure Mean [Right Arm] 91 Pulse Oximetry 96 94 Oxygen Delivery Method Room Air Room Air Oxygen Flow Rate 0 Sepsis Recent Fever Within 48 Hours Sepsis New/Unexplained Change in Mental Status Sepsis Action Taken by Nursing 09/27/24 16:00 09/27/24 16:30 09/27/24 17:00 Temperature Temperature Source Pulse Rate 94 H 93 H 89 Pulse Rate [Apical] Pulse Rate from SpO2 Sensor 88 Respiratory Rate 20 16 15 Respiratory Effort / Characteristics Respiratory Depth Respiratory Pattern Blood Pressure 115/80 112/75 110/84 Blood Pressure [Right Arm] Blood Pressure Mean 93 92 92 Blood Pressure Mean [Right Arm] Pulse Oximetry 94 94 94 Oxygen Delivery Method Room Air Room Air Room Air Oxygen Flow Rate Sepsis Recent Fever Within 48 Hours Sepsis New/Unexplained Change in Mental Status Sepsis Action Taken by Nursing 09/27/24 17:00 09/27/24 17:30 09/27/24 18:00 Temperature Temperature Source Pulse Rate 92 H 80 Pulse Rate [Apical] Pulse Rate from SpO2 Sensor Respiratory Rate 12 12 Respiratory Effort / Characteristics Respiratory Depth Respiratory Pattern Blood Pressure 110/84 105/71 95/70 L Blood Pressure [Right Arm] Blood Pressure Mean 91 82 83 Blood Pressure Mean [Right Arm] Pulse Oximetry 94 96 Oxygen Delivery Method Room Air Room Air Oxygen Flow Rate Sepsis Recent Fever Within 48 Hours Sepsis New/Unexplained Change in Mental Status Sepsis Action Taken by Nursing 09/27/24 18:06 09/27/24 18:30 Temperature Temperature Source Pulse Rate 81 79 Pulse Rate [Apical] Pulse Rate from SpO2 Sensor Respiratory Rate 20 Respiratory Effort / Characteristics Respiratory Depth Respiratory Pattern Blood Pressure 101/79 Blood Pressure [Right Arm] Blood Pressure Mean 88 Blood Pressure Mean [Right Arm] Pulse Oximetry 95 Oxygen Delivery Method Room Air Oxygen Flow Rate Sepsis Recent Fever Within 48 Hours Sepsis New/Unexplained Change in Mental Status Sepsis Action Taken by Nursing Laboratory Data 09/27/24 13:42 09/27/24 13:42 Lab Results 09/27/24 09/27/24 09/27/24 Range/Units 13:42 14:00 14:40 WBC 5.12 (4.8-10.8) K/ul RBC 4.66 L (4.70-6.10) M/uL Hgb 13.6 L (14.0-18.0) g/dl Hct 40.6 L (42.0-52.0) % MCV 87.1 (80.0-100.0) fL MCH 29.2 (25.0-34.0) pg MCHC 33.5 (32.0-36.0) g/dL RDW Std Deviation 41.9 (36.4-46.3) fL RDW Coeff of Taras 13.3 (11.5-14.5) % Plt Count 249 (130-400) K/uL MPV 9.6 (9.4-12.4) fL Immature Gran % (Auto) 0.4 % Neut % (Auto) 75.2 % Lymph % (Auto) 16.2 % [place] % (Auto) 8.0 % Eos % (Auto) 0.0 % Baso % (Auto) 0.2 % Neut # (Auto) 3.85 (1.40-6.50) K/uL Lymph # (Auto) 0.83 L (1.20-3.40) K/uL [place] # (Auto) 0.41 (0.11-0.59) K/uL Eos # (Auto) 0.00 (0.00-0.50) K/uL Baso # (Auto) 0.01 (0.00-0.20) K/uL Immature Gran # (Auto) 0.02 (0.01-0.20) K/uL Sodium 139 (136-145) mmol/L Potassium 3.8 (3.5-5.1) mmol/L Chloride 100 (98-107) mmol/L Carbon Dioxide 31 (21-32) mmol/L Anion Gap 8 (3-11) BUN 11 (6-23) mg/dl Creatinine 1.04 (0.6-1.4) mg/dl Est Cr Clr Drug Dosing 114.0 ml/min eGFR 99.06 BUN/Creatinine Ratio 10.6 (10-20) Glucose 91 (70-99(Fasting)) mg/dl Calcium 9.8 (8.6-10.3) mg/dl Magnesium 1.8 (1.7-2.4) mg/dl Total Bilirubin 0.3 (0.2-1.0) mg/dl AST 22 (13-39) U/L ALT 27 (7-52) U/L Alkaline Phosphatase 93 (34-104) U/L Troponin I High Sens 3.3 (0-20) pg/ml Total Protein 7.1 (6.0-8.3) gm/dl Albumin 4.4 (3.4-5.0) gm/dl Globulin 2.7 (2.5-4.0) gm/dl Albumin/Globulin Ratio 1.6 (0.9-2) Lipase 18 (11-82) U/L Procalcitonin < 0.02 (0-0.5) ng/ml Prolactin 20.47 ng/ml Urine Color Yellow Urine Appearance Clear (Clear) Urine pH 8.5 H (4.5-7.5) Ur Specific [place] 1.017 (1.000-1.030) Urine Protein Negative (Negative) Urine Glucose (UA) Negative (Negative) Urine Ketones Negative (Negative) Urine Blood Negative (Negative) Urine Nitrite Negative (Negative) Urine Bilirubin Negative (Negative) Urine Urobilinogen Negative (Negative) Ur Leukocyte Esterase Negative (Negative) Adenovirus (PCR) Not Detected (NotDetected) B. pertussis DNA (PCR) Not Detected (NotDetected) B.parapertussis DNA PCR Not Detected (NotDetected) C. pneumoniae DNA (PCR) Not Detected (NotDetected) Coronavirus OC43 (PCR) Not Detected (NotDetected) Coronavirus HKU1 (PCR) Not Detected (NotDetected) Coronavirus 229E (PCR) Not Detected (NotDetected) SARS-CoV-2 (PCR) Not Detected (NotDetected) Coronavirus NL63 (PCR) Not Detected (NotDetected) Human Metapneumovir PCR Not Detected (NotDetected) Influenza Type A (PCR) Not Detected (NotDetected) Influenza Type B (PCR) Not Detected (NotDetected) M. pneumoniae (PCR) Not Detected (NotDetected) Parainfluenza 1 (PCR) Not Detected (NotDetected) Parainfluenza 2 (PCR) Not Detected (NotDetected) Parainfluenza 3 (PCR) Not Detected (NotDetected) Parainfluenza 4 (PCR) Not Detected (NotDetected) RSV (PCR) Not Detected (NotDetected) Entero/Rhino (PCR) Not Detected (NotDetected) Administered Medications Discontinued Medications Levetiracetam (Levetiracetam 500 Mg/5 Ml Vial) 1,800 mg 20 mg/kg (1800 mg) IV NOW STA Stop: 09/27/24 14:42 Last Admin: 09/27/24 14:56 Dose: 1,800 mg Documented By: TULIO Imaging Data Radiologist's Impression: Head CT 09/27/24 13:41 CT head/brain wo con CLINICAL HISTORY: 29 years-old Male with seizure. Acute seizure-like activity TECHNIQUE: Multiple axial CT images of the head were obtained without contrast. A dose lowering technique was utilized adhering to the principles of ALARA. CT DOSE: 625.8 mGy.cm COMPARISON: 08/12/2023 FINDINGS: No acute intracranial hemorrhage, midline shift, intracranial mass, hydrocephalus, territorial ischemia or abnormal extra-axial collection. The calvarium is intact. The paranasal sinuses, mastoid air cells, and middle ear cavities are clear. IMPRESSION: No acute intracranial abnormality. ACT 112: Negative or not required by law. The above report was generated using voice recognition software. It may contain grammatical, syntax or spelling errors. Electronically signed by: Philip Johnson M.D. 09/27/2024 1:59 PM Chest X-Ray 09/27/24 13:42 XR chest 1V portable CLINICAL HISTORY: Chest pain, nonspecific COMPARISON STUDY: 08/12/2023 FINDINGS: Heart size and pulmonary vasculature are normal. No effusion, consolidation, or pneumothorax. IMPRESSION: No acute findings. ACT 112: Negative or not required by law. Electronically signed by: Sb Causey M.D. 09/27/2024 2:02 PM Discharge Plan Visit Data Chief Complaint: Seizure Stated Complaint: SEIZURE ED Provider: Jona Pelaez Discharge Problem: Status epilepticus, Seizure Forms Stand Alone Forms: My [facility] [place] [employer] Prescriptions Prescriptions: No Action venlafaxine 75 mg Capsule,Extended Release 24hr 75 mg PO HS venlafaxine 150 mg Capsule,Extended Release 24hr 300 mg PO HS perphenazine 16 mg Tablet 16 mg PO BID albuterol sulfate 90 mcg/actuation Hfa Aerosol Inhaler 2 puff INHALATION QID PRN (Reason: Wheezing) levetiracetam 500 mg Tablet 500 mg PO BID hydrochlorothiazide 25 mg Tablet 50 mg PO DAILY carbamazepine 200 mg tablet 400 mg PO HS Qty: 60 0RF carbamazepine 100 mg Tablet,Chewable 100 mg PO BID Rx Instructions: 0630 & 1100 carbamazepine 200 mg tablet 200 mg PO BID Rx Instructions: 0630 & 1100 trazodone 150 mg Tablet 150 mg PO HS rosuvastatin 5 mg Tablet 5 mg PO DAILY levothyroxine 88 mcg Tablet 88 mcg PO DAILY lisinopril 5 mg Tablet 5 mg PO DAILY prazosin 5 mg Capsule 5 mg PO HS Referrals Referrals: Rajiv WATSON [Primary Care Provider] -
--- NOTE | 2024-09-27 14:01 | CT Scan Report ---
CT head/brain wo con CLINICAL HISTORY: 29 years-old Male with seizure. Acute seizure-like activity TECHNIQUE: Multiple axial CT images of the head were obtained without contrast. A dose lowering tech nique was utilized adhering to the principles of ALARA. CT DOSE: 625.8 mGy.cm COMPARISON: 08/12/2023 FINDINGS: No acute intracranial hemorrhage, midline shift, intracranial mass, hydrocephalus, territorial ischem ia or abnormal extra-axial collection. The calvarium is intact. The paranasal sinuses, mastoid air cells, and middle ear cavities are clear . IMPRESSION: No acute intracranial abnormality. ACT 112: Negative or not required by law. The above report was generated using voice recognition software. It may contain grammatical, syntax o r spelling errors. Electronically signed by: Philip Johnson M.D. 09/27/2024 1:59 PM
--- NOTE | 2024-09-27 14:03 | XRay Report ---
XR chest 1V portable CLINICAL HISTORY: Chest pain, nonspecific COMPARISON STUDY: 08/12/2023 FINDINGS: Heart size and pulmonary vasculature are normal. No effusion, consolidation, or pneumothora x. IMPRESSION: No acute findings. ACT 112: Negative or not required by law. Electronically signed by: Sb Causey M.D. 09/27/2024 2:02 PM
[2024-09-27 14:14] LABS: Basophils # (auto) 0.01 K/uL (0.00-0.20); Basophils % (auto) 0.2 %; Hematocrit (blood only) 40.6 % (42.0-52.0); Hemoglobin 13.6 g/dl (14.0-18.0); Immature Granulocytes # (auto) 0.02 K/uL (0.01-0.20); Immature Granulocytes % (auto) 0.4 %; Lymphocytes # (auto) 0.83 K/uL (1.20-3.40); Lymphocytes % (auto) 16.2 %; Mean Corpuscular Hemoglobin 29.2 pg (25.0-34.0); Mean Corpuscular Hgb Conc 33.5 g/dL (32.0-36.0); Mean Corpuscular Volume 87.1 fL (80.0-100.0); Mean Platelet Volume 9.6 fL (9.4-12.4); Monocytes # (auto) 0.41 K/uL (0.11-0.59); Neutrophils # (auto) 3.85 K/uL (1.40-6.50); Neutrophils % (auto) 75.2 %; Platelet Count 249 K/uL (130-400); RDW Coefficient of Variation 13.3 % (11.5-14.5); RDW Standard Deviation 41.9 fL (36.4-46.3); Red Blood Count 4.66 M/uL (4.70-6.10); White Blood Count 5.12 K/ul (4.8-10.8)
[2024-09-27 14:25] LABS: Albumin Globulin Ratio 1.6 (0.9-2); Albumin Level 4.4 gm/dl (3.4-5.0); BUN Creatinine Ratio 10.6 (10-20); Bilirubin,Total 0.3 mg/dl (0.2-1.0); Calcium 9.8 mg/dl (8.6-10.3); Globulin 2.7 gm/dl (2.5-4.0); Potassium 3.8 mmol/L (3.5-5.1); Total Protein 7.1 gm/dl (6.0-8.3)
[2024-09-27 14:32] LABS: Troponin I High Sensitivity 3.3 pg/ml (0-20)
[2024-09-27 14:52] LABS: Adenovirus PCR Not Detected (NotDetected); Bordetella parapertussis PCR Not Detected (NotDetected); Bordetella pertussis PCR Not Detected (NotDetected); Chlamydia pneumoniae PCR Not Detected (NotDetected); Coronavirus 229E PCR Not Detected (NotDetected); Coronavirus CoV-2 (COVID19)PCR Not Detected (NotDetected); Coronavirus HKU1 PCR Not Detected (NotDetected); Coronavirus NL63 PCR Not Detected (NotDetected); Coronavirus OC43PCR Not Detected (NotDetected); Human Metapneumovirus PCR Not Detected (NotDetected); Influenza A PCR Not Detected (NotDetected); Influenza B PCR Not Detected (NotDetected); Mycoplasma pneumoniae PCR Not Detected (NotDetected); Parainfluenza Virus 1 PCR Not Detected (NotDetected); Parainfluenza Virus 2 PCR Not Detected (NotDetected); Parainfluenza Virus 3 PCR Not Detected (NotDetected); Parainfluenza Virus 4 PCR Not Detected (NotDetected); Respiratory Syncytial VirusPCR Not Detected (NotDetected); Rhinovirus/Enterovirus PCR Not Detected (NotDetected)
[2024-09-27] MEDS: levETIRAcetam 500 MG/5 ML VIAL IV STA (14:56)
[2024-09-27 15:08] LABS: Appearance Urine Clear (Clear); Bilirubin Urine Negative (Negative); Blood Urine Negative (Negative); Color Urine Yellow; Glucose Urine UA Negative (Negative); Ketones Urine Negative (Negative); Leukocyte Esterase Urine Negative (Negative); Nitrite Urine Negative (Negative); Protein Urine Negative (Negative); Specific Gravity Urine 1.017 (1.000-1.030); Urobilinogen Urine Negative (Negative); pH Urine 8.5 (4.5-7.5)
--- NOTE | 2024-09-27 15:20 | History & Physical Report ---
Date of Service September 27, 2024 Assessment & Plan (1) Status epilepticus: Plan: As best I can gather he had two seizures without resolution of symptoms in between seizures lasting for 15 minutes and then 20 minutes, no broken by a total of 5mg lorazepam Tonic -clonic seizure acitivity from description Discussed with neurology - Dr Wyatt Prolactin, carbamazepine level, magnesium level, EEG, No change to seizure medications currently, consult placed for tomorrow Seizure precautions (2) HTN (hypertension): Plan: Current BP appears low, will hold his HCTZ, lisinopril Ok to continue his prazosin NSS 1L bolus now Plan Schizoaffective disorder - continue his routine medications VTE Prophylaxis - low risk Diet - regular Disposition - admit to PCU Admission and Anticipated Discharge Date Admission Date: September 27, 2024 History of Present Illness Chief Complaint: Seizure like activity Primary Care Provider: [facility] Vin Cruz is a 29 year old male who presents to the ER with seizure like activity. Patient unable to remember the event. All he remembers is listening to music and the next thing he knows he was taken to the ER. Known history of seizures and conversion disorder with seizures or convulsions. He reports feeling well without symptoms prior to this. Unfortunately there had been a nursing change at [facility] therefore no first hand information available. The nurse Erendira I talked to saw him being transported by embulance and seizing at change of shift but otherwise history only obtainable from notes. Reportedly witnessed 15 minute seizure initially, he did not recover fully in between seizures and had another lasting for 20 minutes. He was given a total of 5mg lorazepam (2mg IM x2, 1mg IV). Seizure was with him unconscious and all 4 limbs shaking. Allergies Allergy/AdvReac Type Severity Reaction Status Date / Time Carbapenems Allergy Unknown Unknown Verified 09/27/24 15:45 Cephalosporins Allergy Unknown Unknown Verified 09/27/24 15:45 Penicillins Allergy Unknown Unknown Verified 09/27/24 15:45 polyethylene glycol Allergy Unknown Unknown Verified 09/27/24 15:45 shellfish derived Allergy Unknown Unknown Verified 09/27/24 15:45 ziprasidone [From Geodon] Allergy Unknown Unknown Verified 09/27/24 15:45 Home Medications Medication Instructions Recorded Confirmed Type albuterol sulfate 90 mcg/actuation 2 puff inhalation QID PRN Wheezing 04/29/23 09/27/24 History aerosol inhaler hydrochlorothiazide 25 mg tablet 50 mg PO DAILY 04/29/23 09/27/24 History levetiracetam 500 mg tablet 500 mg PO BID 04/29/23 09/27/24 History perphenazine 16 mg tablet 16 mg PO BID 04/29/23 09/27/24 History venlafaxine 150 mg 300 mg PO HS 04/29/23 09/27/24 History capsule,extended release 24 hr venlafaxine 75 mg capsule,extended 75 mg PO HS 04/29/23 09/27/24 History release 24 hr carbamazepine 200 mg tablet 400 mg (2 x 200 mg) PO HS #60 tabs 05/01/23 09/27/24 Rx carbamazepine 100 mg chewable 100 mg PO BID 09/27/24 09/27/24 History tablet carbamazepine 200 mg tablet 200 mg PO BID 09/27/24 09/27/24 History levothyroxine 88 mcg tablet 88 mcg PO DAILY 09/27/24 09/27/24 History lisinopril 5 mg tablet 5 mg PO DAILY 09/27/24 09/27/24 History prazosin 5 mg capsule 5 mg PO HS 09/27/24 09/27/24 History rosuvastatin 5 mg tablet 5 mg PO DAILY 09/27/24 09/27/24 History trazodone 150 mg tablet 150 mg PO HS 09/27/24 09/27/24 History Past Med/Surg History Problem List (Updated 09/27/24 @ 19:10 by Jona Pelaez DO) Altered mental status Antisocial personality disorder Seizure disorder Conversion disorder with seizures or convulsions Hypothyroidism HTN (hypertension) GERD (gastroesophageal reflux disease) Asthma Amphetamine abuse Alcohol abuse Status epilepticus (Acute) Anxiety Seizure (Acute) Medical History Schizoaffective disorder Alcohol abuse Amphetamine abuse Asthma GERD (gastroesophageal reflux disease) HTN (hypertension) Hypothyroidism Conversion disorder with seizures or convulsions Seizure disorder Antisocial personality disorder Social History Smoking Status: Never smoker Tobacco Type: Cigarettes Do You Dip or Chew Tobacco: Yes; Hx Alcohol Use: Yes Hx Substance Use: Yes Last Used Substance: Unknown Preferred Language: Jordanian Communication Ability: Effective Senior Instructor Required: No Beliefs That Will Affect Care: None Current Living Situation: Other Current Living Situation Comment: [facility] Feels Safe at Home: Yes Assistive Devices: None Review of Systems Review of Systems: All systems reviewed & are unremarkable except as noted in HPI & below Physical Exam Constitutional: well developed; + not well nourished and no acute distress Eyes: PERRL, conjunctivae normal, anicteric sclerae ENMT: Mouth: + dry oral mucous membranes Respiratory: normal respiratory effort, lungs clear to auscultation Cardiovascular: RRR, no murmur, no edema Gastrointestinal (Abdomen): normal bowel sounds, soft, nontender, no he patosplenomegaly Musculoskeletal: no cyanosis or clubbing, extremities motor strength 5/5 Skin: no rashes, warm and dry Neurologic: moves all extremities and awake; no focal motor deficits and not confused Speech / Cognition: normal speech Motor/Sensory: no tremor and no pronator drift Cranial Nerves: PERRL, EOM intact bilaterally, normal facial strength, tongue midline, able to rotate head bilaterally, able to elevate shoulders bilaterally, no nystagmus and symmetric palate elevation Coordination: normal [id number] test Psychiatric: Orientation: alert (but drosy, falling asleep during examination) and oriented x 3 Results & Data Results & Data Vital Signs (Past 12 Hours) Vital Signs Temp Pulse Resp BP Pulse Ox O2 Del Method 09/27/24 14:30 99 H 16 96 09/27/24 14:30 128/91 09/27/24 14:18 20 97 09/27/24 14:16 127/89 09/27/24 14:15 107 H 15 96 09/27/24 14:06 36.8 C 09/27/24 14:00 98 H 16 93 09/27/24 13:54 98 H 15 94 09/27/24 13:54 94 Room Air 09/27/24 13:53 106/80 09/27/24 13:42 104 H 22 95 09/27/24 13:42 102 H 09/27/24 13:40 37.8 C H 104 H 18 109/87 96 Room Air 09/27/24 13:39 109/87 Laboratory Results Abnormal lab results 09/27/24 09/27/24 Range/Units 13:42 14:40 RBC 4.66 L (4.70-6.10) M/uL Hgb 13.6 L (14.0-18.0) g/dl Hct 40.6 L (42.0-52.0) % Lymph # (Auto) 0.83 L (1.20-3.40) K/uL Urine pH 8.5 H (4.5-7.5) Diagnostic Findings CT head/brain wo con CLINICAL HISTORY: 29 years-old Male with seizure. Acute seizure-like activity TECHNIQUE: Multiple axial CT images of the head were obtained without contrast. A dose lowering technique was utilized adhering to the principles of ALARA. CT DOSE: 625.8 mGy.cm COMPARISON: 08/12/2023 FINDINGS: No acute intracranial hemorrhage, midline shift, intracranial mass, hydrocephalus, territorial ischemia or abnormal extra-axial collection. The calvarium is intact. The paranasal sinuses, mastoid air cells, and middle ear cavities are clear. IMPRESSION: No acute intracranial abnormality. XR chest 1V portable CLINICAL HISTORY: Chest pain, nonspecific COMPARISON STUDY: 08/12/2023 FINDINGS: Heart size and pulmonary vasculature are normal. No effusion, consolidation, or pneumothorax. IMPRESSION: No acute findings. Medications Administered ER Medications Given: Keppra 1800mg IV ECG Rate (beats per minute): 104 Rhythm: sinus tachycardia Findings: + other (non specific T wave abnormality in lateral leads) Comparison ECG Date: from (August 12, 2023) Change: the following changes noted (nonespecific T wave abnormality) Code Status & VTE Plan Code Status Full VTE Prophylaxis Plan VTE Prophylaxis will be ordered: No PG Care Time/CCT Total # of Minutes Spent Total Time Spent with Patient: Total time spent is greater than 50% in coordination of care (as documented) at patient's floor/unit and/or counseling patient: Coding Level of Care Code 55407 INT INP/OBS CARE 3/75MIN Diagnoses Status epilepticus G40.901 HTN (hypertension) I10
--- NOTE | 2024-09-27 15:53 | Electrocardiogram Report ---
Test Reason : Blood Pressure : */* mmHG Vent. Rate : 104 BPM Atrial Rate : 104 BPM P-R Int : 178 ms QRS Dur : 84 ms QT Int : 316 ms P-R-T Axes : 35 54 73 degrees QTcB Int : 415 ms Sinus tachycardia Minor Nonspecific T wave abnormality Lateral leads Abnormal ECG When compared with ECG of 12-Aug-2023 11:54, Nonspecific T wave abnormality Lateral leads now present Confirmed by Vicente Godoy ([id number]) on 09/27/2024 3:53:17 PM Referred By: Confirmed By: Vicente Godoy
[2024-09-27 16:48] LABS: Magnesium 1.8 mg/dl (1.7-2.4)
[2024-09-27] MEDS: SODIUM CHLORIDE 0.9% 1,000 ML IV ONE (19:32)
[2024-09-27] MEDS: NICOTINE 21 MG/24 HR TDSY TD SCH (19:33)
[2024-09-27] MEDS: carBAMazepine 200 MG TABLET PO SCH (21:34)
[2024-09-27] MEDS: PERPHENAZINE 4 MG TAB PO SCH (21:34)
[2024-09-27] MEDS: PRAZOSIN HCL 1 MG CAP PO SCH (21:35)
[2024-09-27] MEDS: VENLAFAXINE HCL XR 75 MG CAPXR PO SCH (21:36)
[2024-09-27] MEDS: traZODone HCL 50 MG TAB PO SCH (21:37)
[2024-09-27] MEDS: VENLAFAXINE HCL XR 150 MG CAPXR PO SCH (21:38)
[2024-09-27] MEDS: levETIRAcetam 500 MG TAB PO SCH (21:38)
[2024-09-28] MEDS: LORazepam 2 MG/1 ML VIAL IV STA (04:47)
[2024-09-28] MEDS: PLASMA-LYTE A 1,000 ML IV SCH (04:47)
[2024-09-28] MEDS: carBAMazepine 200 MG TABLET PO SCH (05:44)
[2024-09-28] MEDS: LEVOTHYROXINE SODIUM 88 MCG TABLET PO SCH (05:44)
[2024-09-28] MEDS: carBAMazepine 100 MG CHEW TAB PO SCH (05:45)
[2024-09-28] MEDS: ROSUVASTATIN CALCIUM 5 MG TAB PO SCH (07:40)
--- NOTE | 2024-09-28 08:10 | Electroencephalogram ---
EEG Procedure Note Date of Service September 28, 2024 Start / End Times Start Time: 609 End Time: 629 Referring Physician Lakhwinder Ni MD History 29-year-old with longstanding history of seizure disorder with breakthrough seizures September 27 Home Medication List Medication Instructions Recorded Confirmed Type albuterol sulfate 90 mcg/actuation 2 puff inhalation QID PRN Wheezing 04/29/23 09/27/24 History aerosol inhaler hydrochlorothiazide 25 mg tablet 50 mg PO DAILY 04/29/23 09/27/24 History levetiracetam 500 mg tablet 500 mg PO BID 04/29/23 09/27/24 History perphenazine 16 mg tablet 16 mg PO BID 04/29/23 09/27/24 History venlafaxine 150 mg 300 mg PO HS 04/29/23 09/27/24 History capsule,extended release 24 hr venlafaxine 75 mg capsule,extended 75 mg PO HS 04/29/23 09/27/24 History release 24 hr carbamazepine 200 mg tablet 400 mg (2 x 200 mg) PO HS #60 tabs 05/01/23 09/27/24 Rx carbamazepine 100 mg chewable 100 mg PO BID 09/27/24 09/27/24 History tablet carbamazepine 200 mg tablet 200 mg PO BID 09/27/24 09/27/24 History levothyroxine 88 mcg tablet 88 mcg PO DAILY 09/27/24 09/27/24 History lisinopril 5 mg tablet 5 mg PO DAILY 09/27/24 09/27/24 History prazosin 5 mg capsule 5 mg PO HS 09/27/24 09/27/24 History rosuvastatin 5 mg tablet 5 mg PO DAILY 09/27/24 09/27/24 History trazodone 150 mg tablet 150 mg PO HS 09/27/24 09/27/24 History Inpatient Medication List Carbamazepine (Carbamazepine 200 Mg Tablet) 400 mg PO [facility] Stop: 10/27/24 20:59 Last Admin: 09/27/24 21:34 Dose: 400 mg Documented By: MU Carbamazepine (Carbamazepine 100 Mg Chew Tab) 100 mg PO BID@0630,1100 [facility] Stop: 10/28/24 06:29 Last Admin: 09/28/24 05:45 Dose: 100 mg Documented By: KDOnelia Carbamazepine (Carbamazepine 200 Mg Tablet) 200 mg PO BID@0630,1100 [facility] Stop: 10/28/24 06:29 Last Admin: 09/28/24 05:44 Dose: 200 mg Documented By: MU Parenteral Electrolytes (Plasma-Lyte A Ph 7.4) 1,000 mls @ 80 mls/hr IV .[id number] [facility] Stop: 09/28/24 16:59 Last Admin: 09/28/24 04:47 Dose: 80 mls/hr Documented By: MU Levetiracetam (Levetiracetam 500 Mg Tab) 500 mg PO BID [facility] Stop: 10/27/24 20:59 Last Admin: 09/28/24 07:41 Dose: 500 mg Documented By: Admin: 09/27/24 21:38 Dose: 500 mg Documented By: MU Levothyroxine Sodium (Levothyroxine Sodium 88 Mcg Tablet) 88 mcg PO DAILYBB [facility] Stop: 10/28/24 06:29 Last Admin: 09/28/24 05:44 Dose: 88 mcg Documented By: MU Miscellaneous (Remove Nicoderm Patch) 1 each N/A DAILY@0859 [facility] Stop: 10/28/24 08:58 Last Admin: 09/28/24 07:41 Dose: 1 each Documented By: COOPER Nicotine (Nicotine 21 Mg/24 Hr Tdsy) 1 patch TD QAM [facility] Stop: 10/27/24 19:29 Last Admin: 09/28/24 07:40 Dose: 1 patch Documented By: Admin: 09/27/24 19:33 Dose: 1 patch Documented By: ALEKSANDRA Perphenazine (Perphenazine 4 Mg Tab) 16 mg PO BID [facility] Stop: 10/27/24 20:59 Last Admin: 09/28/24 07:40 Dose: 16 mg Documented By: Admin: 09/27/24 21:34 Dose: 16 mg Documented By: MU Prazosin HCl (Prazosin Hcl 1 Mg Cap) 5 mg PO HS [facility] Stop: 10/27/24 20:59 Last Admin: 09/27/24 21:35 Dose: 5 mg Documented By: MU Rosuvastatin Calcium (Rosuvastatin Calcium 5 Mg Tab) 5 mg PO DAILY [facility] Stop: 10/28/24 08:59 Last Admin: 09/28/24 07:40 Dose: 5 mg Documented By: COOPER Trazodone HCl (Trazodone Hcl 50 Mg Tab) 150 mg PO [facility] Stop: 10/27/24 20:59 Last Admin: 09/27/24 21:37 Dose: 150 mg Documented By: MU Venlafaxine HCl (Venlafaxine Hcl Xr 75 Mg Capxr) 75 mg PO HS [facility] Stop: 10/27/24 20:59 Last Admin: 09/27/24 21:36 Dose: 75 mg Documented By: KDL Venlafaxine HCl (Venlafaxine Hcl Xr 150 Mg Capxr) 300 mg PO HS [facility] Stop: 10/27/24 20:59 Last Admin: 09/27/24 21:38 Dose: 300 mg Documented By: KDOnelia Discontinued Medications Sodium Chloride (Nss) 1,000 mls @ 999 mls/hr IV .Q1H1M ONE Stop: 09/27/24 20:16 Last Infusion: 09/27/24 20:53 Dose: Infused Documented By: KDOnelia Admin: 09/27/24 19:32 Dose: 999 mls/hr Documented By: ALEKSANDRA Levetiracetam (Levetiracetam 500 Mg/5 Ml Vial) 1,800 mg 20 mg/kg (1800 mg) IV NOW STA Stop: 09/27/24 14:42 Last Admin: 09/27/24 14:56 Dose: 1,800 mg Documented By: TULIO Lorazepam (Lorazepam 2 Mg/1 Ml Vial) 0.5 mg IV NOW STA Stop: 09/28/24 04:30 Last Admin: 09/28/24 04:47 Dose: 0.5 mg Documented By: MU Description This is a 21 electrode EEG with a single channel dedicated to limited EKG. The electrodes were placed in accordance with the International 10-20 system. Interpretation The predominant background activity consists of a very well modulated 10 Hz activity, of up to 50 mV in amplitude,seen symmetrically distributed over the posterior head regions bilaterally. This activity attenuates nicely with eye- opening and other alerting procedures. Photic stimulation was performed and elicited no change in the background activity and no abnormal responses were seen. Hyperventilation was not performed. A minimal amount of muscle and movement artifact activity contaminated the r ecording and did not hinder interpretation to any significant degree. There was frequent electrical artifact which likely was secondary to the IV pump. This did not hinder interpretation either. Throughout the waking portion of the recording, no focal abnormalities, abnormal slow activity, or potentially epileptogenic discharges were seen. The patient entered the drowsy state and brief periods of stage II sleep with no further activation. In summary, this EEG was normal during wakefulness and light sleep. No focal abnormalities, potentially epileptogenic discharges, or abnormal slow activity were seen. Clinical Correlation The abscence of potentially epileptogenic activity does not exclude a seizure disorder, since interictally, EEGs can be normal. Clinical correlation is required. [facility] EEG Procedure Codes Indication for Procedure (1) Seizure disorder: Neurology Neurology: 28375 EEG include record awake & sleepy
[2024-09-28 08:18] VITALS: RESP 17; TEMP 98.6; O2SAT 97
--- NOTE | 2024-09-28 08:22 | Neurology Consultation ---
Date of Consultation September 28, 2024 Assessment & Plan (1) Seizure disorder: (2) Schizoaffective disorder: Plan Patient has a longstanding history of seizures and psychiatric illness. He had significant/prolonged generalized tonic-clonic seizures September 27 triggering admission. He has had no seizures since admission. 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 The elevated prolactin tends to support generalized tonic-clonic seizures. However, given the nature of his seizures, a normal EEG (12 to 18 hours later), without any slowing is suspect. Patient has a schizoaffective disorder, likely bipolar type followed closely by psychiatry on medication. This is relatively far as is known On examination he has no focal findings, meningeal signs, or encephalopathy. EEG today was quite normal without any potentially epileptogenic activity, focal findings, or abnormal slowing. Recommendations: 1. Continue carbamazepine 300 mg in the morning, 300 mg in the afternoon, and 400 mg at night. This is a rather high dose and I would not want to increase this without following levels. 2. Awaiting carbamazepine level 3. Increase levetiracetam to 750 mg twice daily 4. Please contact me if I can be of further assistance on this case otherwise I have no further neurologic testing or treatment recommendations to make. Overall, I spent a total of 75 minutes with this case including review of records, direct evaluation of the patient at bedside, report generation, and discussion of the case with the patient and RN at bedside, and Dr. Saunders including differential diagnosis and treatment options. History of Present Illness Reason for Consultation: Patient is a 29-year-old, who was asked to see at the request of Dr. Ni, for neurologic evaluation regarding seizure disorder. Requesting Physician: Lakhwinder Ni MD Attending Physician: Skyler Saunders MD, PhD History of Present Illness This patient tells me that he started having seizures in his early teen years. He had many seizures over the years and tells me that eventually he was put on carbamazepine in his early 20s. Levetiracetam was then added later. Prior to medication he stated that he "smoked a lot of weed" which helped dampen the seizures in his opinion. In 2019 he was first in [place]. He had 6 seizures at least in the first 2 months and then 8 seizures in the next 9 months. He has been at [facility] for 2 years or so and had significant seizure in April 3. He saw Dr. Scales in consultation here at our hospital. At that time, his carbamazepine level was 10.2 and was discharged on 400 mg at bedtime. He was also given levetiracetam 500 mg twice a day. He has not had any big seizures since April 2023 that he is aware. However, he gets "minor events" multiple times a month which consist of some shaking and decreased responsiveness. He cannot recall any of these events, but his "cellmate" has witnessed them. He tends to be fatigued after the event. Patient has a longstanding history of mood disorder. He has been diagnosed with schizoaffective disorder likely bipolar type. He has been on perphenazine 16 mg twice a day and venlafaxine 225 mg at bedtime. He also takes trazodone 150 mg at bedtime for sleep. He claims that his mood is variable and swings between depression and sara. He is followed by psychiatry at the [facility]. He says he has very poor short-term memory which has been present for years. Apparently in the morning of September 27, he was doing well at his baseline and remembers around midday listening to music. He then has no recall after that but has some vague recall of being in the emergency room. Apparently he had 2 prolonged seizures at the present lasting is much as 15 to 20 minutes each and then another seizure in the EMS being transported over. He received a total of 5 mg Valium IV by the time he got to the emergency room. He arrived September 27 at 1339 with a temperature of 37.8, pulse of 104, respiratory rate 18, blood pressure 109/87, and O2 saturation 96%. Examination was unremarkable without any focal findings. CBC, CHEM profile, liver profile were unremarkable (although there was slight anemia). Urinalysis was unremarkable. Prolactin level was 20 (normal 2.6-13). CT scan of the head was unremarkable. Chest x-ray was unremarkable. The patient was given 1800 mg levetiracetam loading dose. Nursing reports no seizures overnight. He feels much improved although he has some anxiety and muscle soreness. He has a mild bifrontal headache of a tight nature. Blood pressure is 113/73 this morning with a pulse of 90 and he is afebrile at 37.0 Allergies Allergy/AdvReac Type Severity Reaction Status Date / Time Carbapenems Allergy Unknown Unknown Verified 09/27/24 15:45 Cephalosporins Allergy Unknown Unknown Verified 09/27/24 15:45 Penicillins Allergy Unknown Unknown Verified 09/27/24 15:45 polyethylene glycol Allergy Unknown Unknown Verified 09/27/24 15:45 shellfish derived Allergy Unknown Unknown Verified 09/27/24 15:45 ziprasidone [From Geodon] Allergy Unknown Unknown Verified 09/27/24 15:45 Home Medications Medication Instructions Recorded Confirmed Type albuterol sulfate 90 mcg/actuation 2 puff inhalation QID PRN Wheezing 04/29/23 09/27/24 History aerosol inhaler hydrochlorothiazide 25 mg tablet 50 mg PO DAILY 04/29/23 09/27/24 History levetiracetam 500 mg tablet 500 mg PO BID 04/29/23 09/27/24 History perphenazine 16 mg tablet 16 mg PO BID 04/29/23 09/27/24 History venlafaxine 150 mg 300 mg PO HS 04/29/23 09/27/24 History capsule,extended release 24 hr venlafaxine 75 mg capsule,extended 75 mg PO HS 04/29/23 09/27/24 History release 24 hr carbamazepine 200 mg tablet 400 mg (2 x 200 mg) PO HS #60 tabs 05/01/23 09/27/24 Rx carbamazepine 100 mg chewable 100 mg PO BID 09/27/24 09/27/24 History tablet carbamazepine 200 mg tablet 200 mg PO BID 09/27/24 09/27/24 History levothyroxine 88 mcg tablet 88 mcg PO DAILY 09/27/24 09/27/24 History lisinopril 5 mg tablet 5 mg PO DAILY 09/27/24 09/27/24 History prazosin 5 mg capsule 5 mg PO HS 09/27/24 09/27/24 History rosuvastatin 5 mg tablet 5 mg PO DAILY 09/27/24 09/27/24 History trazodone 150 mg tablet 150 mg PO HS 09/27/24 09/27/24 History Patient History Medical History Schizoaffective disorder Family History Mother Osteoarthritis Social History (Updated 09/28/24 @ 08:41 by Rubén Wyatt MD) Smoking Status: Former smoker Tobacco Type: Cigarettes and Cigars Age Started Using Tobacco: 16; Age Quit Using Tobacco: 26; Do You Dip or Chew Tobacco: Yes; Hx Alcohol Use: Yes Hx Substance Use: Yes Non-Prescribed Medications: Crack / Cocaine and Marijuana Last Used Substance: Unknown Preferred Language: Ugandan Communication Ability: Unable Residential Child Care Counselor Required: No Beliefs That Will Affect Care: None Current Living Situation: Other Current Living Situation Comment: [facility] current occupational status: previously employed Feels Safe at Home: Yes Assistive Devices: None Review of Systems Constitutional: + fatigue; no fever and no weakness Eyes: no diplopia, no eye pain and no worsening vision Ear, Nose, Mouth, Throat: no ear pain, no tinnitus, no hearing loss, no dizziness, no snoring, no hoarseness and no dysphagia Respiratory: no cough and no dyspnea Cardiovascular: no chest pain, no palpitations and no lightheadedness Gastrointestinal: no abdominal pain, no nausea and no vomiting Musculoskeletal: + myalgia; no back pain, no neck pain, n o radicular pain and no joint pain Integumentary: no rash and no lesions Neurologic: + memory loss; no gait abnormality, no l ocalized weakness, no generalized weakness, no tingling, no numbness, no tremor(s), no abnormal movements, no headache(s), no abnormal speech and no confusion Psychiatric: no depression, no irritability, no anxiety, no difficulty concentrating, no confusion and no hallucinations Endocrine: no fatigue and no flushing Hematologic / Lymphatic: no easy bleeding and no easy bruising Allergy / Immunological: no urticaria and no problem reported Exam (Neuro) Physical Exam: The patient is right-handed. The patient is awake, alert, and attentive. Speech is normal without any aphasia or dysarthria. Mentation and thought processes are intact, with full orientation and normal fund of knowledge. Mood and affect are normal and appropriate. Appearance and grooming are normal. Short and long-term memory decreased conversation particularly events in the last 24 hours. Pupils are 4 mm bilaterally and reactive to light. Extraocular eye muscles are intact without nystagmus. Visual acuity and visual estrada seem normal grossly to confrontation. There are no deficits to sensation in the face in all 3 distributions of the fifth cranial nerve bilaterally. Corneal reflexes are positive bilaterally. Facial strength and symmetry was normal bilaterally. Hearing seems intact grossly to voice and finger rub bilaterally. Palate moves well without asymmetry. There is normal sternocleidomastoid and trapezius strength bilaterally. Tongue is midline with good strength bilaterally. Neck has a full range of motion without discomfort. Cervical, thoracic, and lumbar spine are nontender to palpation. Gait was not tested but stance sitting up is reasonable. With outstretched arms there is no drift. There are no resting, postural, or action tremors. There is no ataxia with finger to nose testing. There is good facility in the hands. No other abnormal involuntary movements are noted. Motor strength is 5/5 diffusely in the arms bilaterally including deltoids, biceps, triceps, brachioradialis, wrist flexors and extensors, projects manager, and intrinsic hand muscles. Motor strength is 5/5 diffusely in the legs bilaterally including hip flexors, quadriceps, hamstrings, gastrocnemius, tibialis anterior, tibialis posterior, and Peroneii muscles bilaterally. Toe extensors are normal and there is good bulk in the extensor digitorum brevis muscles bilaterally. The limbs have good tone without rigidity or spasticity. There is no atrophy noted in the muscles. Muscle bulk is normal, there is no tenderness to palpation, no myotonia to percussion, and no fasciculations seen. Sensory examination is intact to touch and pin throughout all 4 limbs diffusely. Reflexes are 2/4 in the biceps, triceps, brachioradialis, quadriceps, and Achilles tendons bilaterally. Toes are downgoing with plantar stimulation bilaterally. Peripheral pulses are present and of normal quality distally in all 4 limbs. There is no peripheral edema noted in the limbs. Results & Data Vital Signs (Past 12 Hours) Vital Signs Temp Pulse Pulse Resp BP Pulse Ox O2 Del Method 09/28/24 08:00 37.0 C 90 17 113/73 97 Room Air 09/28/24 04:06 36.7 C 66 16 98/60 L 96 Room Air 09/27/24 23:49 36.4 C L 81 16 99/65 L 93 Room Air 09/27/24 20:46 72 09/27/24 20:44 36.7 C 09/27/24 20:43 71 18 99/64 L 97 Room Air PG Care Time/CCT Total # of Minutes Spent Total Time Spent with Patient: Total time spent is greater than 50% in coordination of care (as documented) at patient's floor/unit and/or counseling patient: Coding Level of Care Code 98087 INT INP/OBS CARE MIN Diagnoses Seizure disorder G40.909 Schizoaffective disorder F25.9 Time Spent (min) 75
[2024-09-28] MEDS: LORazepam 1 MG TAB PO STA (10:39)
[2024-09-28 11:12] VITALS: BP 104/55
[2024-09-28 11:22] VITALS: PULSE 80
--- NOTE | 2024-09-28 11:22 | Discharge Summary ---
Discharge Summary Date of Service September 28, 2024 Principal Dx & Hospital Course #1 = Principal Diagnosis (1) Status epilepticus: Asymptomatic with no myoclonus, tremors, or tics on hospital discharge date 09/28/2024. Seizure precautions were maintained while patient remained in [facility] from 09/27/2024 to 09/28/2024. Patient apparently sustained two seizures without resolution of symptoms in between, and with the two seizures lasting for 15 minutes and then 20 minutes, respectively, now broken by a total of 5mg lorazepam Tonic -clonic seizure activity from description Case discussed with Neurologist Dr. Rubén Wyatt, who concurs and advises no change to seizure medication regimen includin. Carbamazepine 300mg PO bid. 2. Carbamazepine 400mg PO qhs. 3. Keppra 500mg PO bid. Patient will continue this same home-scheduled seizure medication regimen on hospital discharge back to [facility] ([place], [place]) on 09/28/2024. (2) HTN (hypertension): Patient's BP on admission was normal at 109/87 (09/27/2024, 1:39pm); subsequently, patient's BP declined to a jacob of 95/70 (09/27/2024, 5:00pm) through 98/60 (09/27/2024, 11:49pm): for these low BP recordings, patient did not receive his home-scheduled HCTZ 50mg PO daily or home-scheduled lisinopril 5mg PO daily; instead, patient received 1 liter of 0.9% NS @ 999 mL/hr (09/27/2024, 7:16pm) with U/A negative for LE and nitrites (09/27/2024, 2:40pm), thereby ruling out acute UTI as a potential cause for patient's low BP recordings. Subsequently, patient has a discharge BP 113/73 (09/28/2024, 8:00am). Subsequently, patient will resume his home-scheduled HCTZ 50mg PO daily and home-scheduled lisinopril 5mg PO daily on 09/28/2024 once patient arrives back at [facility] ([place], [place]). Plan 3. Schizoaffective disorder. Asymptomatic on perphenazine 16mg PO bid at [facility] ([place]) and at [facility]. Patient will continue this home- scheduled medication on discharge back to [facility] ([place]) on 09/28/2024. 4. Parasomnia nightmare disorder. Asymptomatic on prazosin 5mg PO qhs and trazodone 150mg PO qhs at [facility] ([place]) and at [facility]. Patient will continue both home-scheduled medications on discharge back to [place]) on 09/28/2024. 5. Major depression. Mild. No suicidal ideation or homicidal ideation. Asymptomatic on venlafaxine 225mg PO qhs at [facility] ([place]) and at [facility]. Patient will continue this home-scheduled medication on discharge back to [place]) on 09/28/2024. 6. Ongoing tobacco abuse. Smoking cessation counselling 16 minutes given. Patient agreed to abstain from smoking tobacco while in [facility]. Patient accepted offer of nicotine replacement utilizing nicotine patch 21mg TD daily while in [facility]. Patient will not continue this hospital-started medication on hospital discharge back to [facility] ([place]) as patient reports, "I can quit smoking by myself." 7. Hyperlipidemia. Asymptomatic on rosuvastatin 5mg PO daily at [facility] ([place]) and at [facility]. Patient will continue this home-scheduled medication on discharge back to [place] on 09/28/2024. 8. Hypothyroidism. Patient has no goiter, lid lag, or proptosis on exam. Patient appears to be euthyroid on synthroid 88ug PO daily (with normal screening TSH 3.956 uIU/mL (08/12/2023, 12:05pm)) at [facility] ([place]) and at [facility]. Patient will continue this home-scheduled medication on discharge back to [facility] ([place]) on 09/28/2024. 9. DVT prophylaxis. No mechanical DVT prophylaxis with SCD or pharmacologic DVT prophylaxis with heparin/lovenox as patient ambulates independently. Of note, patient had no complaints of calf pain, leg swelling, or pleurisy to suggest either DVT or PE while in [facility]. 10.Pain Management. Patient reported 0/10 pain anywhere while in [facility]. Observe. 11.Disposition. Code status, FULL CODE. ACLS was never performed. There were no adverse events noted with this hospitalization. Condition of patient remains fair. Subsequently, patient was discharged back to [facility] ([place], [place]) today, 09/28/2024, and will follow up with his PCP @ [facility] ([place], [place]) within 7 days of hospital discharge. Discharge time, 35 minutes. Of this time period, 18 minutes were spent in coordinating patient's discharge. Admission HPI Per Admitting Provider Vin Cruz is a 29 year old male who presents to the ER with seizure like activity. Patient unable to remember the event. All he remembers is listening to music and the next thing he knows he was taken to the ER. Known history of seizures and conversion disorder with seizures or convulsions. He reports feeling well without symptoms prior to this. Unfortunately there had been a nursing change at [facility] therefore no first hand information available. The nurse Erendira Camacho talked to saw him being transported by embulance and seizing at change of shift but otherwise history only obtainable from notes. Reportedly witnessed 15 minute seizure initially, he did not recover fully in between seizures and had another lasting for 20 minutes. He was given a total of 5mg lorazepam (2mg IM x2, 1mg IV). Seizure was with him unconscious and all 4 limbs shaking. Discharge Exam Constitutional General: comfortable, coherent, cooperative. Wide awake and alert. Not confused, lethargic, or obtunded. Patient speaks in complete, fluent, and articulate sentences without pause, interruption, cough, or wheeze. HEENT: NC/AT. EOMI, PERRL. No nystagmus, gaze paresis, anisocoria, miosis, mydriasis, hyphema, chemosis, scleral icterus, conjunctivitis, or pterygium. No otorrhea, no rhinorrhea. No pharyngeal discharge or erythema. Neck: Supple, no stridor, bruit, goiter, or hepatojugular reflux. Jugular venous pressure is estimated to be 8 cm above the sternal angle of [place], which is typically 5 cm above the level of the right atrium. Hence, there is no jugular venous distention noted on 09/27/2024. Lymphatics: No pre-post auricular, anterior/posterior cervical, supraclavicular/infraclavicular, axillary, epitrochlear, or inguinal adenopathy. Chest: Symmetric rise and fall with respirations. Non-tender to palpation. Heart: RRR, S1 and S2 noted. No S3 or S4 summation gallop noted. No tripartite friction rub. Grade II/ early systolic murmur @ LLSB without radiation to the carotids, axilla, or back, and which remains invariant in regards to the respiratory cycle. Lungs: Clear to auscultation and percussion. No audible expiratory wheeze, egophony, pectoriloquy, increase in tactile fremitus, or flatness/dullness to percussion at the bases. Abdomen: Soft, non-tender, non-distended. No rebound, guarding, Matthews's sign, or organomegaly. Bowel sounds auscultated in all 4 quadrants. Extremities: No clubbing, cyanosis, or edema. 2+ pedal pulses bilaterally. Skin: No decubitus ulcer, exanthem, or enanthem. Neurology: Alert and oriented in regards to person, place, time, and situation. DTR+ and symmetric. 5/5 motor strength in all 4 extremities, both proximally and distally. No myoclonus, tremors, or tics. Urology: No lomeli catheter. No urethral discharge. Psychiatry: Appropriate affect. Smiles occasionally. No homicidal/suicidal ideation. Discharge Plan Discharge Items Patient Disposition: Home - Self-Care Reason For Visit: STATUS EPILEPTICUS Discharge Diagnosis: chronic seizure disorder Activity: Resume your previous activity Lifting: No more than 10 pounds Non-emergency contact: Primary Care Provider Call non-emergency contact if: you have any medication questions Follow-up/Referrals: Rajiv WATSON [Primary Care Provider] - Diet: Heart Healthy, Low Fat and Low Sodium (2gm) Addtl Attending Provider Instructions: See your PCP @ [facility] ([place], [place]) within 7 days of hospital discharge. Pending Studies at Discharge: No Stand-Alone Forms: [employer], Smoking Cessation Medications and DC Order Prescriptions: Continued venlafaxine 75 mg Capsule,Extended Release 24hr 75 mg PO HS venlafaxine 150 mg Capsule,Extended Release 24hr 300 mg PO HS perphenazine 16 mg Tablet 16 mg PO BID albuterol sulfate 90 mcg/actuation Hfa Aerosol Inhaler 2 puff INHALATION QID PRN (Reason: Wheezing) levetiracetam 500 mg Tablet 500 mg PO BID hydrochlorothiazide 25 mg Tablet 50 mg PO DAILY carbamazepine 200 mg tablet 400 mg PO HS Qty: 60 0RF carbamazepine 100 mg Tablet,Chewable 100 mg PO BID Rx Instructions: 0630 & 1100 carbamazepine 200 mg tablet 200 mg PO BID Rx Instructions: 0630 & 1100 trazodone 150 mg Tablet 150 mg PO HS rosuvastatin 5 mg Tablet 5 mg PO DAILY levothyroxine 88 mcg Tablet 88 mcg PO DAILY lisinopril 5 mg Tablet 5 mg PO DAILY prazosin 5 mg Capsule 5 mg PO HS Discharge Orders: Discharge Order (Routine); Ordered 09/28/24 Ordered By: Skyler Saunders Admission Data Admit Date/Time: 09/27/24 16:27 Attending Provider: Skyler Saunders Admit Provider: Lakhwinder Ni Primary Care Provider: Rajiv WATSON Other Providers: Lakhwinder Ni; Rubén Wyatt Hospital Stay Data Consultations 09/27/24 14:59 ED Decision to Admit Stat 09/27/24 21:32 Consult Neurology Routine Diagnostic Imagining Performed 09/27/24 13:41 CT head/brain wo con Stat Pending Results Patient Have Any Pending Studies at Discharge: No Discharge Instructions Given to Patient (Per Discharging Provider) See your PCP @ [facility] ([place], [place]) within 7 days of hospital discharge. Total Time Total Time Spent Total Time Spent (In Minutes): 35 minutes Coding Level of Care Code 16646 INP/OBS DISCH >30 MIN Diagnoses Status epilepticus G40.901 HTN (hypertension) I10
[2024-09-29] MEDS ORDERED: MIDAZOLAM HCL 5 MG/ML 2ML VIAL IV STA (16:34)
== END 2024-09-28 13:09 | disposition home or self-care (01) | DRG 100 ==
LOC: ED 13:37 → SUATTDRO 16:27 → EDINP 16:27 → 2E 19:26

== ENCOUNTER 2024-09-29 15:05 | Inpatient (IN) ==
[2024-09-29] MEDS: MIDAZOLAM HCL 5 MG/ML 2ML VIAL IV STA ×3 (15:10→20:34)
[2024-09-29] MEDS: LEVETIRACETAM IV STA (15:18)
--- NOTE | 2024-09-29 15:25 | Emergency Department Note ---
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 09/29/24 19:11 Last Infusion: 09/29/24 20:15 Dose: Infused Documented By: Admin: 09/29/24 18:59 Dose: 999 mls/hr Documented By: BAR Thiamine HCl 100 mg/ Syringe 10 mls @ 2 mls/min IV NOW STA Stop: 09/29/24 20:31 Last Admin: 09/29/24 21:28 Dose: 2 mls/min Documented By: BAR Sodium Chloride (Nss) 1,000 mls @ 999 mls/hr IV .Q1H1M ONE Stop: 09/29/24 21:32 Last Infusion: 09/29/24 21:37 Dose: Infused Documented By: Admin: 09/29/24 20:35 Dose: 999 mls/hr Documented By: BAR Levetiracetam (Levetiracetam 500 Mg/5 Ml Vial 3500mg) 3,500 mg IV NOW STA Stop: 09/29/24 15:14 Last Admin: 09/29/24 15:18 Dose: 3,500 mg Documented By: GISSELL Midazolam HCl (Midazolam Hcl 5 Mg/Ml 2ml Vial) 5 mg IV NOW STA Stop: 09/29/24 15:17 Last Admin: 09/29/24 15:10 Dose: 5 mg Documented By: GISSELL Midazolam HCl (Midazolam Hcl 5 Mg/Ml 2ml Vial) 5 mg IV NOW STA Stop: 09/29/24 17:24 Last Admin: 09/29/24 17:05 Dose: 5 mg Documented By: GISSELL Midazolam HCl (Midazolam Hcl 5 Mg/Ml 2ml Vial) 5 mg IV NOW STA Stop: 09/29/24 20:23 Last Admin: 09/29/24 20:34 Dose: 5 mg Documented By: BAR Steve (Rapid Sequence Induction Bag) Confirm Administered Dose 1 each N/A .STK-MED ONE Stop: 09/29/24 15:07 Last Admin: 09/29/24 16:13 Dose: Not Given Documented By: IGSSELL Steve (Rapid Sequence Induction Bag) Confirm Administered Dose 1 each N/A .STK-MED ONE Stop: 09/29/24 18:50 Last Admin: 09/29/24 20:20 Dose: 1 each Documented By: BAR Steve (Stat Iv Infusion Titration Per Protocol) 1 each N/A NOW STA Stop: 09/29/24 19:06 Last Admin: 09/29/24 20:15 Dose: Not Given Documented By: BAR Propofol (Propofol Iv Emulsion 10 Mg/Ml 100 Ml Vial) Confirm Administered Dose 1,000 mg IV .STK-MED ONE Stop: 09/29/24 18:53 Last Admin: 09/29/24 20:19 Dose: Not Given Documented By: BAR Imaging Data Radiologist's Impression: Head CT 09/29/24 15:14 EXAM: CT Head Without Intravenous Contrast INDICATION: Seizures. TECHNIQUE: Axial computed tomography images of the head/brain without intravenous contrast. Sagittal and/or coronal reformats are provided. Sagittal and coronal reformatted images were created and reviewed. This CT exam was performed using one or more of the following dose reduction techniques: automated exposure control, adjustment of the mA and/or kV according to patient size, and/or use of iterative reconstruction technique. COMPARISON: No relevant prior studies available. FINDINGS: Limitations: None. Brain and extra-axial spaces: There is a 4 mm calcification in the extra-axial space of the anterior right middle cranial fossa presumably a tiny meningioma. No edema or mass effect. No acute infarct. No hemorrhage, extra-axial fluid collection, hydrocephalus or mass effect. No significant white matter disease. Bones/joints: No acute changes. Soft tissues: No significant abnormality noted. Vasculature: No acute abnormality noted. Sinuses: No layering fluid in the visualized portions of the paranasal sinuses. Mastoid air cells: No mastoid effusion. Orbits: No significant abnormality noted. IMPRESSION: No significant abnormality noted. ACT 112: Negative or not required by law. Electronically signed by Trang Cat 09-29-2024 4:09 PM Chest X-Ray 09/29/24 19:06 EXAM: Radiograph of the Chest 1 View INDICATION: Intubation. TECHNIQUE: Frontal view of the chest. Image obtained at 7:38 PM COMPARISON: No relevant prior studies available. FINDINGS: Lungs and pleural spaces: No consolidation or pulmonary edema. No pleural effusion or pneumothorax. Heart: Shape and configuration within normal limits allowing for technique. Mediastinum: Normal contour. Bones/joints: No fracture, erosion or dislocation. Soft tissues: No abnormality noted. No radiopaque foreign body noted. Vasculature: Mild vascular crowding identified. Tubes, lines and devices: The endotracheal tube terminates 2.2 cm above the behzad. Upper abdomen: No abnormality noted. IMPRESSION: 1. Lines and tubes as above. 2. No acute cardiopulmonary disease. ACT 112: Negative or not required by law. Electronically signed by Trang Cat 09-29-2024 7:48 PM Discharge Plan Visit Data Chief Complaint: Seizure Stated Complaint: seizure ED Provider: Donnell Krishnamurthy Discharge Problem: Seizure-like activity Patient Disposition: Being Evaluated by Hospitalist Discharge Instructions Interventions: ED Discharge Assessment Last Done: 09/29/24 21:46
[2024-09-29 15:29] LABS: Hemoglobin 12.9 g/dl (14.0-18.0); Mean Corpuscular Hemoglobin 29.5 pg (25.0-34.0); Mean Corpuscular Hgb Conc 33.1 g/dL (32.0-36.0); Mean Corpuscular Volume 89.2 fL (80.0-100.0); Mean Platelet Volume 9.8 fL (9.4-12.4); Platelet Count 229 K/uL (130-400); RDW Coefficient of Variation 13.4 % (11.5-14.5); RDW Standard Deviation 43.8 fL (36.4-46.3); Red Blood Count 4.37 M/uL (4.70-6.10); White Blood Count 4.19 K/ul (4.8-10.8)
[2024-09-29] MEDS: SODIUM CHLORIDE 0.9% 1,000 ML IV ONE ×3 (15:33→20:35)
[2024-09-29 15:50] LABS: Albumin Level 4.5 gm/dl (3.4-5.0); Bilirubin,Total 0.2 mg/dl (0.2-1.0); Calcium 9.7 mg/dl (8.6-10.3); Magnesium 1.9 mg/dl (1.7-2.4); Phosphorus 2.9 mg/dl (2.5-4.9); Total Protein 7.3 gm/dl (6.0-8.3)
[2024-09-29 15:54] LABS: Troponin I High Sensitivity 2.6 pg/ml (0-20)
--- NOTE | 2024-09-29 16:10 | CT Scan Report ---
EXAM: CT Head Without Intravenous Contrast INDICATION: Seizures. TECHNIQUE: Axial computed tomography images of the head/brain without intravenous contrast. Sagittal and/or coronal reformats are provided. Sagittal and coronal reformatted images were created and reviewed. This CT exam was performed using one or more of the following dose reduction techniques: automated exposure control, adjustment of the mA and/or kV according to patient size, and/or use of iterative reconstruction technique. COMPARISON: No relevant prior studies available. FINDINGS: Limitations: None. Brain and extra-axial spaces: There is a 4 mm calcification in the extra-axial space of the anterior right middle cranial fossa presumably a tiny meningioma. No edema or mass effect. No acute infarct. No hemorrhage, extra-axial fluid collection, hydrocephalus or mass effect. No significant white matter disease. Bones/joints: No acute changes. Soft tissues: No significant abnormality noted. Vasculature: No acute abnormality noted. Sinuses: No layering fluid in the visualized portions of the paranasal sinuses. Mastoid air cells: No mastoid effusion. Orbits: No significant abnormality noted. IMPRESSION: No significant abnormality noted. ACT 112: Negative or not required by law. Electronically signed by Trang Cat 09-29-2024 4:09 PM
[2024-09-29] MEDS: RAPID SEQUENCE INDUCTION BAG ONE ×2 (16:13→20:20)
[2024-09-29 16:16] LABS: Amphetamines+Metham, Urine Neg (Neg); Barbiturates, Urine Neg (Neg); Benzodiazepine, Urine Pos (Neg); Cocaine, Urine Neg (Neg); Fentanyl, Urine Neg (Neg); MDMA (Ecstacy), Urine Neg (Neg); Marijuana, Urine Neg (Neg); Methadone, Urine Neg (Neg); Opiate, Urine Neg (Neg); Phencyclidine, Urine Neg (Neg)
[2024-09-29 16:20] LABS: Appearance Urine Clear (Clear); Bilirubin Urine Negative (Negative); Blood Urine Negative (Negative); Color Urine Yellow; Glucose Urine UA Negative (Negative); Ketones Urine Negative (Negative); Leukocyte Esterase Urine Negative (Negative); Nitrite Urine Negative (Negative); Protein Urine Negative (Negative); Specific Gravity Urine 1.009 (1.000-1.030); Urobilinogen Urine Negative (Negative)
[2024-09-29 17:37] LABS: iSTAT Creatinine 0.9 mg/dl (0.6-1.3); iSTAT Hemoglobin 13.3 g/dl (14.0-18.0); iSTAT Ionized Calcium 1.23 mmol/l (1.12-1.32); iSTAT Potassium 3.9 mmol/L (3.3-5.0)
--- NOTE | 2024-09-29 18:49 | Hospitalist Consultation ---
Date of Consultation September 29, 2024 Assessment & Plan (1) Status epilepticus: Patient having continued seizure like activity last from 2-10 minutes without resolution in between episodes, foaming and mouth afterwards and non responsive to noxious stimuli Tonic-clonic seizure activity recorded and sent to neurology This is despite Midazolam 5mg IV x2 and Keppra 3500mg IV At this point he is outside of this institutions ability to care for him. Although the possibility of pseudoseizures remains we do not have the ability for conintuous EEG monitoring here therefore recommend transfer to tertiary care Center - discussed with both Dr Wyatt (neurology) and Dr Krishnamurthy (ER provider) Patient History Social History Smoking Status: Never smoker Feels Safe at Home: Yes Results & Data Results & Data Vital Signs (Past 12 Hours) Vital Signs Temp Pulse Pulse Resp BP BP Pulse Ox 09/29/24 18:29 112 H 30 H 150/92 H 95 09/29/24 17:01 87 16 112/81 98 09/29/24 16:30 98 H 16 135/98 100 09/29/24 16:06 86 16 134/93 98 09/29/24 15:49 84 18 122/80 99 09/29/24 15:49 99 H 09/29/24 15:30 108 H 18 129/83 100 09/29/24 15:19 36.7 C 114 H 18 129/92 97 O2 Del Method 09/29/24 18:29 Room Air 09/29/24 17:01 Room Air 09/29/24 16:30 Room Air 09/29/24 16:06 Room Air 09/29/24 15:49 Room Air 09/29/24 15:49 09/29/24 15:30 Room Air 09/29/24 15:19 Room Air PG Care Time/CCT Total # of Minutes Spent Total Time Spent with Patient: Total time spent is greater than 50% in coordination of care (as documented) at patient's floor/unit and/or counseling patient: Coding Diagnoses Status epilepticus G40.901
[2024-09-29 18:50] LABS: iSTAT Arterial Blood Gas HCO3 24 meg/L (19-24); iSTAT Arterial Blood Gas pCO2 39 mmHg (35-46); iSTAT Arterial Blood Gas pH 7.39 (7.35-7.45); iSTAT Arterial Blood Gas pO2 95 mmHg (80-95); iSTAT Carbon Dioxide 25 mmol/L (24-31); iSTAT Hematocrit 37 % (42-52); iSTAT Hemoglobin 12.6 g/dl (14.0-18.0); iSTAT Potassium 3.6 mmol/L (3.3-5.0); iSTAT Sodium 140 mmol/L (135-144)
--- NOTE | 2024-09-29 19:10 | Communication Note ---
Date of Service: September 29, 2024 Returned call to transfer, discussed directly with Dr. Krishnamurthy ER provider, [place] regarding 29yo male currently residing in an incarceration facility was discharged yesterday (two separate MRN charts) after neurology had seen him inpatient due to seizures/pseudoseizures and made medication changes. Today unfortunately began to have recurrent episodes of seizure like activity prompting return to ER. Recommend ER to ER transfer to [facility]. If patient requires intubation then will accommodate transfer to neuroscience ICU at [facility].
[2024-09-29] MEDS: propofoL 1,000 MG/100 ML VIAL IV SCH (19:35)
[2024-09-29] MEDS: PROPOFOL BOLUS FROM BAG IV PRN (19:39)
--- NOTE | 2024-09-29 19:49 | XRay Report ---
EXAM: Radiograph of the Chest 1 View INDICATION: Intubation. TECHNIQUE: Frontal view of the chest. Image obtained at 7:38 PM COMPARISON: No relevant prior studies available. FINDINGS: Lungs and pleural spaces: No consolidation or pulmonary edema. No pleural effusion or pneumothorax. Heart: Shape and configuration within normal limits allowing for technique. Mediastinum: Normal contour. Bones/joints: No fracture, erosion or dislocation. Soft tissues: No abnormality noted. No radiopaque foreign body noted. Vasculature: Mild vascular crowding identified. Tubes, lines and devices: The endotracheal tube terminates 2.2 cm above the behzad. Upper abdomen: No abnormality noted. IMPRESSION: 1. Lines and tubes as above. 2. No acute cardiopulmonary disease. ACT 112: Negative or not required by law. Electronically signed by Trang Cat 09-29-2024 7:48 PM
[2024-09-29] MEDS: STAT IV Infusion **Titration per Protocol STA (20:15)
[2024-09-29] MEDS ORDERED: ACETAMINOPHEN 325 MG TAB PO PRN (20:18)
[2024-09-29] MEDS: PROPOFOL IV EMULSION 10 MG/ML 100 ML VIAL IV ONE (20:19)
[2024-09-29] MEDS: fentaNYL citrate PF 100 MCG/2 ML VIAL IV STA ×2 (20:53→20:54)
[2024-09-29] MEDS ORDERED: ICU Protocol for HYPERglycemia SCH (21:00)
--- NOTE | 2024-09-29 21:05 | History & Physical Report ---
Date of Service September 29, 2024 Assessment & Plan (1) Status epilepticus: Plan: Patient having continued seizure like activity last from 2-10 minutes without resolution in between episodes, foaming and mouth afterwards and non responsive to noxious stimuli Tonic-clonic seizure activity recorded and sent to neurology This is despite Midazolam 5mg IV x2 and Keppra 3500mg IV At this point he is outside of this institutions ability to care for him. Although the possibility of pseudoseizures remains we do not have the ability for continuous EEG monitoring here therefore recommend transfer to tertiary care Center - discussed with both Dr Wyatt (neurology) and Dr Krishnamurthy (ER provider) Patient unable to be transferred at this time due to weather but accepted at [facility]. Patient intubated in the ER. Accepted overnight in our ICU. Will defer ongoing management to ICU team. History of Present Illness Chief Complaint: Seizure activity Primary Care Provider: WALTER Cruz is a 29 year old male with known seizure disorder on Keppra and Carbamazepine who presents to the ER with ongoing seizures. He was recently admitted from September 27 -2024 due to status epilepticus. Initial neurology note reports plan to increase Keppra from 500mg PO BID to 750mg PO BID however hospitalist discharge summary notes this was discussed with neurology on discharge and no med changes were subsequently made. Unable to get any history from patient when seen as currently had a GCS 3 shortly after a 10 minutes seizure in the ER. Per ER note he was found on the phone with his mother in a chair having a seizure. Multiple seizure of the course of half an hour. Generalized shaking. Received Ativan 2mg IV and Midazolam 5mg IV from EMS. In the ER he was loaded with Keppra 3500mg and given Midazolam 5mg IV x2. When seen by myself he had just finished a 10 minute seziure and went on to have another 2 minute seizure with generalized clonic movements. Of note registration created a new account for the patient therefore to view prior notes he is under a different . Allergies Allergy/AdvReac Type Severity Reaction Status Date / Time shellfish derived Allergy Severe Unknown Verified 09/30/24 06:23 ziprasidone [From Geodon] Allergy Severe Unknown Verified 09/30/24 06:23 Penicillins Allergy Intermediate Unknown Verified 09/30/24 06:23 Carbapenems Allergy Unknown Unknown Verified 09/30/24 06:23 Cephalosporins Allergy Unknown Unknown Verified 09/30/24 06:23 polyethylene glycol Allergy Unknown Unknown Verified 09/30/24 06:23 Home Medications Medication Instructions Recorded Confirmed Type albuterol sulfate 90 mcg/actuation 2 puff inhalation QID PRN 09/29/24 09/29/24 History aerosol inhaler Shortness of breath / wheezing carbamazepine 100 mg chewable 100 mg PO BID 09/29/24 09/29/24 History tablet carbamazepine 200 mg tablet 200 mg PO BID 09/29/24 09/29/24 History carbamazepine 200 mg tablet 400 mg PO HS 09/29/24 09/29/24 History hydrochlorothiazide 25 mg tablet 25 mg PO DAILY 09/29/24 09/29/24 History levetiracetam 500 mg tablet 500 mg PO BID 09/29/24 09/29/24 History levothyroxine 88 mcg tablet 88 mcg PO DAILY 09/29/24 09/29/24 History lisinopril 5 mg tablet 5 mg PO DAILY 09/29/24 09/29/24 History perphenazine 16 mg tablet 16 mg PO BID 09/29/24 09/29/24 History prazosin 5 mg capsule 5 mg PO HS 09/29/24 09/29/24 History rosuvastatin 5 mg tablet 5 mg PO DAILY 09/29/24 09/29/24 History trazodone 150 mg tablet 150 mg PO HS 09/29/24 09/29/24 History venlafaxine 150 mg tablet,extended 300 mg PO HS 09/29/24 09/29/24 History release 24 hr venlafaxine 75 mg tablet,extended 75 mg PO HS 09/29/24 09/29/24 History release 24 hr Past Med/Surg History Problem List (Updated 09/29/24 @ 18:46 by Lakhwinder Ni MD) Status epilepticus Seizure-like activity (Acute) Social History Smoking Status: Current some day smoker Tobacco Type: Cigarettes Hx Alcohol Use: Yes Hx Substance Use: Yes Substance Use Type Other:: Pt is incarcerated Preferred Language: Yoruba Communication Ability: intubated [employer] Required: No Current Living Situation: Other Current Living Situation Comment: WALTER Vance Feels Safe at Home: Yes Review of Systems Review of Systems: Unobtainable due to cognitive status Physical Exam Constitutional: + not well nourished and no acute distre ss Respiratory: normal respiratory effort, lungs clear to auscultation Cardiovascular: RRR, no murmur, no edema Gastrointestinal (Abdomen): Percussion/Palpation: abdomen soft; abdomen nontender Skin: No areas of cellulitis seen Neurologic: + not awake (GCS 3) Results & Data Results & Data Vital Signs (Past 12 Hours) Vital Signs Temp Pulse Pulse Resp BP BP Pulse Ox 09/29/24 20:50 68 25 H 101/75 100 09/29/24 20:36 81 25 H 98 09/29/24 20:35 97/71 L 09/29/24 20:35 97/71 L 09/29/24 20:33 84 25 H 96 09/29/24 20:30 93/64 L 09/29/24 20:27 87 16 96 09/29/24 20:25 98/72 L 09/29/24 20:19 79 25 H 98 09/29/24 20:15 88 25 H 98 09/29/24 20:15 111/78 09/29/24 20:12 91 H 25 H 98 09/29/24 20:10 112/80 09/29/24 20:06 93 H 25 H 97 09/29/24 20:06 140/101 H 09/29/24 20:00 101 H 25 H 96 09/29/24 20:00 121/85 09/29/24 19:54 101 H 99 09/29/24 19:50 129/91 09/29/24 19:48 104 H 25 H 96 09/29/24 19:45 107 H 25 H 97 09/29/24 19:45 163/109 H 09/29/24 19:45 163/109 H 09/29/24 19:40 173/131 H 09/29/24 19:30 139/94 09/29/24 19:30 86 09/29/24 19:25 134/91 09/29/24 19:15 137/89 09/29/24 19:12 85 11 L 94 09/29/24 19:10 136/92 09/29/24 19:09 94 H 12 94 09/29/24 19:05 142/88 H 09/29/24 19:03 94 H 94 09/29/24 19:00 94 09/29/24 18:30 150/92 H 09/29/24 18:29 112 H 30 H 150/92 H 95 09/29/24 18:21 112 H 12 96 09/29/24 18:18 122 H 13 95 09/29/24 18:00 74 12 137/94 97 09/29/24 17:55 81 14 133/89 95 09/29/24 17:55 133/89 09/29/24 17:43 126/87 09/29/24 17:01 87 16 112/81 98 09/29/24 16:30 98 H 16 135/98 100 09/29/24 16:06 86 16 134/93 98 09/29/24 15:49 84 18 122/80 99 09/29/24 15:49 99 H 09/29/24 15:30 108 H 18 129/83 100 09/29/24 15:19 36.7 C 114 H 18 129/92 97 O2 Del Method 09/29/24 20:50 09/29/24 20:36 09/29/24 20:35 09/29/24 20:35 09/29/24 20:33 09/29/24 20:30 09/29/24 20:27 09/29/24 20:25 09/29/24 20:19 Mechanical Vent 09/29/24 20:15 09/29/24 20:15 09/29/24 20:12 09/29/24 20:10 09/29/24 20:06 09/29/24 20:06 09/29/24 20:00 09/29/24 20:00 09/29/24 19:54 09/29/24 19:50 09/29/24 19:48 09/29/24 19:45 09/29/24 19:45 09/29/24 19:45 09/29/24 19:40 09/29/24 19:30 09/29/24 19:30 09/29/24 19:25 09/29/24 19:15 09/29/24 19:12 09/29/24 19:10 09/29/24 19:09 09/29/24 19:05 09/29/24 19:03 09/29/24 19:00 Room Air 09/29/24 18:30 09/29/24 18:29 Room Air 09/29/24 18:21 Room Air 09/29/24 18:18 09/29/24 18:00 09/29/24 17:55 Room Air 09/29/24 17:55 09/29/24 17:43 09/29/24 17:01 Room Air 09/29/24 16:30 Room Air 09/29/24 16:06 Room Air 09/29/24 15:49 Room Air 09/29/24 15:49 09/29/24 15:30 Room Air 09/29/24 15:19 Room Air Laboratory Results Abnormal lab results 09/29/24 09/29/24 09/29/24 Range/Units 15:15 15:35 18:38 WBC 4.19 L (4.8-10.8) K/ul RBC 4.37 L (4.70-6.10) M/uL Hgb 12.9 L (14.0-18.0) g/dl POC Hgb 13.3 L 12.6 L (14.0-18.0) g/dl Hct 39.0 L (42.0-52.0) % POC Hct 39 L 37 L (42-52) % POC pH (7.35-7.45) POC pCO2 (35-46) mmHg POC pO2 (80-95) mmHg POC Total CO2 (24-31) mmol/L ABG pH (Temp Correct) (7.35-7.45) ABG pCO2 (Temp Corrct (35-46) mmHg POC ABG O2 Sat 97.0 H (90-95) % POC Potassium (3.3-5.0) mmol/L Potassium (3.5-5.1) mmol/L Chloride (98-107) mmol/L POC BUN 6 L (7-18) mg/dl BUN/Creatinine Ratio 9.0 L (10-20) Lactate 4.2 H* (0.4-2.0) mmol/L Urine pH 8.0 H (4.5-7.5) U Benzodiazepines Scrn Pos H (Neg) Diagnostic Findings CT Head Without Intravenous Contrast INDICATION: Seizures. TECHNIQUE: Axial computed tomography images of the head/brain without intravenous contrast. Sagittal and/or coronal reformats are provided. Sagittal and coronal reformatted images were created and reviewed. This CT exam was performed using one or more of the following dose reduction techniques: automated exposure control, adjustment of the mA and/or kV according to patient size, and/or use of iterative reconstruction technique. COMPARISON: No relevant prior studies available. FINDINGS: Limitations: None. Brain and extra-axial spaces: There is a 4 mm calcification in the extra- axial space of the anterior right middle cranial fossa presumably a tiny meningioma. No edema or mass effect. No acute infarct. No hemorrhage, extra- axial fluid collection, hydrocephalus or mass effect. No significant white matter disease. Bones/joints: No acute changes. Soft tissues: No significant abnormality noted. Vasculature: No acute abnormality noted. Sinuses: No layering fluid in the visualized portions of the paranasal sinuses. Mastoid air cells: No mastoid effusion. Orbits: No significant abnormality noted. IMPRESSION: No significant abnormality noted. Medications Administered ER Medications Given: ECG Rate (beats per minute): 68 Rhythm: normal sinus Findings: no acute ischemic change Comparison ECG Date: no prior available Code Status & VTE Plan Code Status Full VTE Prophylaxis Plan VTE Prophylaxis will be ordered: Yes PG Care Time/CCT Total # of Minutes Spent Total Time Spent with Patient: Total time spent is greater than 50% in coordination of care (as documented) at patient's floor/unit and/or counseling patient: Coding Level of Care Code 17270 INT INP/OBS CARE 3/75MIN Diagnoses Status epilepticus G40.901
[2024-09-29 21:14] LABS: Thyroid Stimulating Hormone 3.384 uIu/ml (0.300-4.500)
[2024-09-29] MEDS: THIAMINE HCL 100 MG in SYRINGE 9 ML IV STA (21:28)
--- NOTE | 2024-09-29 22:03 | Critical Care Consultation ---
Date of Consultation September 29, 2024 Assessment & Plan (1) Status epilepticus: Plan Reason Critically Ill: Status Epilepticus Neuro - RASS GOAL -1 to -2 Continue propofol Monitor for clinical seizures Neurology consult, appreciate continued recommendations. Plan for transfer to [facility], accepted by Dr. Douglas. CTH negative for acute intracranial abnormality. There is question of a tiny calcification approximately 4mm assumed to be a meningioma which was not commented on prior. Carbamazepine levels pending, last admission was 12.6. Will resume home dose Continue Keppra 1g BID Continue Effexor XR, perphenazine Hold Trazodone Cardiac - Did not receive home antihypertensives while recently inpatient due to borderline BP. Will continue to hold these and they will need to be assessed for appropriateness on discharge. MAP goal > 65mmHg EKG pending for QTc Respiratory - Continue mechanical ventilation for airway protection to facilitate adequate antiepileptic therapy and transfer CXR shows appropriate position of ETT SpO2 > 92% VAP bundle Respiratory driven protocol ABG pending, ventilator adjustments as indicated GI - OGT to LIS when not used Diet: NPO except meds via OGT SUP: H2B Bowel regimen: Miralax RENAL/LYTES - Replete electrolytes as indicated Carcamo for accurate I/Os, can likely D/c and utilize external catheter in the morning if he remains in our facility Lactic acid cleared Maintain net even to net negative ENDO - Continue Levoxyl BG 140-180 per SCCM guidelines ISS if needed while inpatient BG Q6H HEME - No acute concerns ID - COVID negative. No current indication for abx. CXR does not show aspiration. Monitor WBC, fever curve. LINES/TUBES/DRAINS - PIV x2 ETT (Day #1) OGT (Day #1) Carcamo (Day #1) DVT PROPHYLAXIS - Enoxaparin I have personally spent 40 minutes of critical care time in the direct management of this patient. This is a life/limb threatening event. This includes time spent evaluating patient, direct bedside care, chart review, placing orders, interpretation of diagnostic studies, discussion with consultants, patient, and family members, as well as other required patient management activities. This time is exclusive of all separately billable procedures, and teaching time and separate from and in addition to any other critical care service time. Thank you for allowing us to participate in the care of this patient. Please refer to my attending physician's documentation for any further recommendations. Supervising Physician Co-Signing Physician Notes I have personally evaluated and examined this patient. I agree with assessment and plan of Ben Harding PA-C Received in signout. Mildly rigid upper extremities, no obvious seizure-like activity, given 1 mg IV Ativan. Transfer center in contact with [facility], still awaiting weather changes to facilitate transport. Overnight team notified neurology patient still remains at the institution. Continue current care decreasing ventilatory rate given alkalosis. History of Present Illness Reason for Consultation: Seizures Requesting Physician: Raine Attending Physician: Raine History of Present Illness Mr. Vin Cruz is a 29YOM with a history of seizure disorder vs. pseudoseizure, polysubstance use disorder, antisocial PD, bipolar disorder, hypothyroidism who presented to [facility] ED on 09/29/2024 afternoon due to seizure like activity. Patient resides at [facility]. He was discharged from our facility on 09/28/2023 after admission 09/27/2024 for similar complaints. EEG at that time was negative and he did not have any further seizure episodes after admission. Discharged on same antiepileptic dose. He presented today after multiple episodes described as tonic clonic and lasting between 2-10 minutes respectively. He received Ativan and Versed prior to EMS arrival. He was post- ictal en route, no response to noxious stimuli. Tachycardic, otherwise hemodynamically stable. In the ED patient received 3500mg Keppra. He subse quently became conscious, complaining of diffuse body pain and urge to urinate. No incontinence noted. Tells ED staff he took all morning and midday Rx. The last thing he remembered was being on the phone with his mother at the snf. Woprkup revealed lactic acid of 4.2, prolactin > 20. Mild leukopenia, otherwise no significant abnormalities. UDS pending. Around 1830 patient had a several minute seizure requiring IV Versed. Patient was discussed with Dr. Wyatt from [facility] Neurology who suspects pseudoseizures. Nevertheless recommendations were to increase Keppra to 1000mg BID. Staff at [facility] were not comfortable accepting him back to the snf. He did have multiple self terminating episodes of seizure like activity following this. In consultation with [facility] Neu[facility] patient was accepted to [facility] for continuation of care. He was intubated for airway protection prior to transfer via Ketamine and Succinylcholine. He is now admitted to [facility] ICU pending transfer given inclement weather conditions. Patient seen in ICU 109. He is intubated and sedated. Hemodynamically stable. Afebrile. Propofol infusing. On my view of KUB the OGT side port is just past the GE junction, thus advanced by 5cm. ROS unable to be obtained. Allergies Allergy/AdvReac Type Severity Reaction Status Date / Time shellfish derived Allergy Severe Unknown Verified 09/30/24 06:23 ziprasidone [From Geodon] Allergy Severe Unknown Verified 09/30/24 06:23 Penicillins Allergy Intermediate Unknown Verified 09/30/24 06:23 Carbapenems Allergy Unknown Unknown Verified 09/30/24 06:23 Cephalosporins Allergy Unknown Unknown Verified 09/30/24 06:23 polyethylene glycol Allergy Unknown Unknown Verified 09/30/24 06:23 Home Medications Medication Instructions Recorded Confirmed Type albuterol sulfate 90 mcg/actuation 2 puff inhalation QID PRN 09/29/24 09/29/24 History aerosol inhaler Shortness of breath / wheezing carbamazepine 100 mg chewable 100 mg PO BID 09/29/24 09/29/24 History tablet carbamazepine 200 mg tablet 200 mg PO BID 09/29/24 09/29/24 History carbamazepine 200 mg tablet 400 mg PO HS 09/29/24 09/29/24 History hydrochlorothiazide 25 mg tablet 25 mg PO DAILY 09/29/24 09/29/24 History levetiracetam 500 mg tablet 500 mg PO BID 09/29/24 09/29/24 History levothyroxine 88 mcg tablet 88 mcg PO DAILY 09/29/24 09/29/24 History lisinopril 5 mg tablet 5 mg PO DAILY 09/29/24 09/29/24 History perphenazine 16 mg tablet 16 mg PO BID 09/29/24 09/29/24 History prazosin 5 mg capsule 5 mg PO HS 09/29/24 09/29/24 History rosuvastatin 5 mg tablet 5 mg PO DAILY 09/29/24 09/29/24 History trazodone 150 mg tablet 150 mg PO HS 09/29/24 09/29/24 History venlafaxine 150 mg tablet,extended 300 mg PO HS 09/29/24 09/29/24 History release 24 hr venlafaxine 75 mg tablet,extended 75 mg PO HS 09/29/24 09/29/24 History release 24 hr Patient History Social History Smoking Status: Current some day smoker Tobacco Type: Cigarettes Hx Alcohol Use: Yes Hx Substance Use: Yes Substance Use Type Other:: Pt is incarcerated Preferred Language: Malay Communication Ability: Unable Career Services Coordinator Required: No Current Living Situation: Other Current Living Situation Comment: [facility] Feels Safe at Home: Yes Review of Systems Review of Systems: Unobtainable due to endotracheal tube Physical Exam Constitutional: average body habitus, + disheveled and + mechanically ventilated; no acute distress and + not well groomed Eyes: PERRL, conjunctivae normal, anicteric sclerae ENMT: Mouth: + poor dentition; no lip abnormality and no tongue abnormality ETT in place Neck: trachea midline, no thyromegaly Respiratory: symmetric chest movement; no respiratory distress Auscultation: lungs clear to auscultation bilaterally Cardiovascular: RRR, no murmur, no edema Gastrointestinal (Abdomen): normal bowel sounds, soft, nontender, no hepatosplenomegaly Musculoskeletal: Extremities: extremities normal to inspection; no cyanosis Skin: normal turgor; no rashes, no lesions and no erythema No skin breaks. Scattered tattoos Neurologic: Sedated. Moves all extremities Results & Data Results & Data Vital Signs (Past 12 Hours) Vital Signs Temp Pulse Pulse Resp BP BP Pulse Ox 09/29/24 21:40 115/83 09/29/24 21:39 58 L 25 H 100 09/29/24 21:35 116/77 09/29/24 21:35 116/77 09/29/24 21:35 116/77 09/29/24 21:33 61 25 H 100 09/29/24 21:30 108/83 09/29/24 21:30 108/83 09/29/24 21:30 61 25 H 100 09/29/24 21:27 62 25 H 100 09/29/24 21:25 112/81 09/29/24 21:21 56 L 25 H 100 09/29/24 21:20 107/75 09/29/24 21:15 61 25 H 103/67 100 09/29/24 21:10 96/70 L 09/29/24 21:03 64 25 H 97 09/29/24 21:00 64 25 H 89/60 L 97 09/29/24 20:55 106/74 09/29/24 20:50 68 25 H 101/75 100 09/29/24 20:36 81 25 H 98 09/29/24 20:35 97/71 L 09/29/24 20:35 97/71 L 09/29/24 20:33 84 25 H 96 09/29/24 20:30 93/64 L 09/29/24 20:27 87 16 96 09/29/24 20:25 98/72 L 09/29/24 20:19 79 25 H 98 09/29/24 20:15 88 25 H 98 09/29/24 20:15 111/78 09/29/24 20:12 91 H 25 H 98 09/29/24 20:10 112/80 09/29/24 20:06 93 H 25 H 97 09/29/24 20:06 140/101 H 09/29/24 20:00 101 H 25 H 96 09/29/24 20:00 121/85 09/29/24 19:54 101 H 99 09/29/24 19:50 129/91 09/29/24 19:48 104 H 25 H 96 09/29/24 19:45 107 H 25 H 97 09/29/24 19:45 163/109 H 09/29/24 19:45 163/109 H 09/29/24 19:40 173/131 H 09/29/24 19:34 101 H 25 H 98 09/29/24 19:30 139/94 09/29/24 19:30 86 09/29/24 19:25 134/91 09/29/24 19:15 137/89 09/29/24 19:12 85 11 L 94 09/29/24 19:10 136/92 09/29/24 19:09 94 H 12 94 09/29/24 19:05 142/88 H 09/29/24 19:03 94 H 94 09/29/24 19:00 94 09/29/24 18:30 150/92 H 09/29/24 18:29 112 H 30 H 150/92 H 95 09/29/24 18:21 112 H 12 96 09/29/24 18:18 122 H 13 95 09/29/24 18:00 74 12 137/94 97 09/29/24 17:55 81 14 133/89 95 02/08/25 17:55 133/89 09/29/24 17:43 126/87 09/29/24 17:01 87 16 112/81 98 09/29/24 16:30 98 H 16 135/98 100 09/29/24 16:06 86 16 134/93 98 09/29/24 15:49 84 18 122/80 99 09/29/24 15:49 99 H 09/29/24 15:30 108 H 18 129/83 100 09/29/24 15:19 36.7 C 114 H 18 129/92 97 O2 Del Method FiO2 09/29/24 21:40 09/29/24 21:39 09/29/24 21:35 09/29/24 21:35 09/29/24 21:35 09/29/24 21:33 09/29/24 21:30 09/29/24 21:30 09/29/24 21:30 09/29/24 21:27 09/29/24 21:25 09/29/24 21:21 09/29/24 21:20 09/29/24 21:15 Room Air 09/29/24 21:10 09/29/24 21:03 09/29/24 21:00 09/29/24 20:55 09/29/24 20:50 09/29/24 20:36 09/29/24 20:35 09/29/24 20:35 09/29/24 20:33 09/29/24 20:30 09/29/24 20:27 09/29/24 20:25 09/29/24 20:19 Mechanical Vent 09/29/24 20:15 09/29/24 20:15 09/29/24 20:12 09/29/24 20:10 09/29/24 20:06 09/29/24 20:06 09/29/24 20:00 09/29/24 20:00 09/29/24 19:54 09/29/24 19:50 09/29/24 19:48 09/29/24 19:45 09/29/24 19:45 09/29/24 19:45 09/29/24 19:40 09/29/24 19:34 40 09/29/24 19:30 09/29/24 19:30 09/29/24 19:25 09/29/24 19:15 09/29/24 19:12 09/29/24 19:10 09/29/24 19:09 09/29/24 19:05 09/29/24 19:03 09/29/24 19:00 Room Air 09/29/24 18:30 09/29/24 18:29 Room Air 09/29/24 18:21 Room Air 09/29/24 18:18 09/29/24 18:00 09/29/24 17:55 Room Air 09/29/24 17:55 09/29/24 17:43 09/29/24 17:01 Room Air 09/29/24 16:30 Room Air 09/29/24 16:06 Room Air 09/29/24 15:49 Room Air 09/29/24 15:49 09/29/24 15:30 Room Air 09/29/24 15:19 Room Air Laboratory Results Reviewed Diagnostic Findings Reviewed Medications Administered See [facility] Procedure Codes (Charges) Ventilator Management Ventilator Managment: 17811 Ventilation assist and management; Hospital inpt/obs, intl day Coding Level of Care Code 67228 CRITICAL CARE 1ST 30-74M Diagnoses Status epilepticus G40.901 CPT Codes Ventilator Management - Ventilator Managment: 44344 Ventilation assist and management; Hospital inpt/obs, intl day ([id number]) Time Spent (min) 40
[2024-09-29] MEDS ORDERED: STAT IV Infusion **Titration per Protocol STA (22:17)
[2024-09-29] MEDS ORDERED: fentaNYL BOLUS from BAG IV PRN (22:17)
[2024-09-29] MEDS ORDERED: ACETAMINOPHEN SUSP 325 MG/10.15 ML UDC NG PRN (22:33)
[2024-09-29] MEDS: fentaNYL citrate 2,500 MCG/250 ML BAG IV SCH (22:35)
[2024-09-29 22:37] LABS: iSTAT Allen Test Pass; iSTAT Art Bld Gas pCO2 Correct 25 mmHg (35-46); iSTAT Art Bld Gas pH Corrected 7.525 (7.35-7.45); iSTAT Arterial Blood Gas HCO3 20 meg/L (19-24); iSTAT Arterial Blood Gas pCO2 25 mmHg (35-46); iSTAT Arterial Blood Gas pH 7.52 (7.35-7.45); iSTAT Arterial Blood Gas pO2 202 mmHg (80-95); iSTAT Arterial Blood Gas pO2 C 201; iSTAT Carbon Dioxide 21 mmol/L (24-31); iSTAT FiO2 40 %; iSTAT Hematocrit 35 % (42-52); iSTAT Hemoglobin 11.9 g/dl (14.0-18.0); iSTAT Potassium 3.6 mmol/L (3.3-5.0); iSTAT Sample Type Arterial; iSTAT Site R Radial; iSTAT Sodium 140 mmol/L (135-144); iSTAT SpO2 100
[2024-09-29] MEDS: FAMOTIDINE SUSP 20 MG/2.5 ML UDP NG SCH (22:46)
[2024-09-29] MEDS: ICU Protocol for HYPERglycemia SCH (22:51)
[2024-09-29] MEDS: carBAMazepine 100 MG CHEW TAB NG ONE (23:31)
--- NOTE | 2024-09-30 00:44 | XRay Report ---
Exam(s): XR KUB EXAM: XR Abdomen, 1 View CLINICAL HISTORY: Reason for exam: OG insertion verification. TECHNIQUE: Frontal supine view of the abdomen/pelvis. COMPARISON: None. FINDINGS: An orogastric tube is adequately placed with its distal tip in the topography of the stomach. Gastrointestinal tract: Borderline gaseous distention of the visualized bowel. Bones/joints: Unremarkable. No acute fracture. Other findings: . An elevated right hemidiaphragm IMPRESSION: An adequately placed an orogastric tube. . Electronically signed by: Oleg Vital MD, JOSE ROBERTOR 09/30/24 00:43 AM
[2024-09-30 05:12] LABS: Basophils # (auto) 0.02 K/uL (0.00-0.20); Basophils % (auto) 0.4 %; Eosinophils # (auto) 0.01 K/uL (0.00-0.50); Eosinophils % (auto) 0.2 %; Hemoglobin 11.7 g/dl (14.0-18.0); Immature Granulocytes # (auto) 0.01 K/uL (0.01-0.20); Immature Granulocytes % (auto) 0.2 %; Lymphocytes # (auto) 1.85 K/uL (1.20-3.40); Lymphocytes % (auto) 35.8 %; Mean Corpuscular Hgb Conc 34.4 g/dL (32.0-36.0); Mean Corpuscular Volume 87.2 fL (80.0-100.0); Mean Platelet Volume 10.2 fL (9.4-12.4); Monocytes # (auto) 0.52 K/uL (0.11-0.59); Monocytes % (auto) 10.1 %; Neutrophils # (auto) 2.76 K/uL (1.40-6.50); Neutrophils % (auto) 53.3 %; Platelet Count 188 K/uL (130-400); RDW Coefficient of Variation 13.4 % (11.5-14.5); RDW Standard Deviation 42.5 fL (36.4-46.3); White Blood Count 5.17 K/ul (4.8-10.8)
[2024-09-30 05:26] LABS: iSTAT Allen Test Pass; iSTAT Art Bld Gas pCO2 Correct 24 mmHg (35-46); iSTAT Art Bld Gas pH Corrected 7.531 (7.35-7.45); iSTAT Arterial Blood Gas HCO3 21 meg/L (19-24); iSTAT Arterial Blood Gas pCO2 25 mmHg (35-46); iSTAT Arterial Blood Gas pH 7.53 (7.35-7.45); iSTAT Arterial Blood Gas pO2 135 mmHg (80-95); iSTAT Arterial Blood Gas pO2 C 133; iSTAT Carbon Dioxide 21 mmol/L (24-31); iSTAT FiO2 30 %; iSTAT Hematocrit 33 % (42-52); iSTAT Hemoglobin 11.2 g/dl (14.0-18.0); iSTAT Sample Type VEN; iSTAT Site L Radial; iSTAT Sodium 139 mmol/L (135-144); iSTAT SpO2 100
[2024-09-30 05:27] LABS: BUN Creatinine Ratio 7.8 (10-20); Calcium 8.8 mg/dl (8.6-10.3); Creatinine Clr Calc Pharmacy 163.3 ml/min; Magnesium 1.8 mg/dl (1.7-2.4); Phosphorus 2.6 mg/dl (2.5-4.9); Potassium 3.2 mmol/L (3.5-5.1)
[2024-09-30] MEDS: LEVOTHYROXINE SODIUM 88 MCG TABLET NG SCH (06:07)
[2024-09-30] MEDS: carBAMazepine 100 MG CHEW TAB NG SCH (06:08)
[2024-09-30] MEDS: MIDAZOLAM HCL 1 MG/ML 2ML VIAL IV STA (06:08)
[2024-09-30] MEDS: MIDAZOLAM HCL 1 MG/ML 2ML VIAL ONE (06:09)
[2024-09-30] MEDS: ICU ELECTROLYTE REPLACEMENT PROTOCOL SCH (06:13)
[2024-09-30] MEDS: POTASSIUM CHLORIDE 20 MEQ/15 ML UDC NG SCH (06:28)
[2024-09-30] MEDS: MAGNESIUM OXIDE 400 MG TAB NG SCH (06:28)
[2024-09-30 07:16] VITALS: O2SAT 99
[2024-09-30] MEDS: SENNOSIDES 8.8 MG/5 ML UDC GT SCH (08:26)
[2024-09-30] MEDS: LORazepam 2 MG/1 ML VIAL ONE (08:26)
[2024-09-30] MEDS: PERPHENAZINE 4 MG TAB NG SCH (08:31)
[2024-09-30] MEDS: ROSUVASTATIN CALCIUM 5 MG TAB NG SCH (08:32)
[2024-09-30 08:44] VITALS: RESP 12
[2024-09-30] MEDS ORDERED: carBAMazepine 100 MG CHEW TAB NG SCH ×3 (09:00→21:00)
[2024-09-30] MEDS ORDERED: carBAMazepine 200 MG TABLET PO SCH ×2 (09:00→21:00)
[2024-09-30] MEDS ORDERED: POLYETHYLENE (MIRALAX) 17 GM PACK GT SCH (09:00)
[2024-09-30] MEDS: levETIRAcetam 500 MG/5 ML VIAL IV SCH (09:25)
[2024-09-30 09:39] VITALS: PULSE 59; TEMP 98.6
[2024-09-30 10:51] VITALS: BP 115/80
--- NOTE | 2024-09-30 15:55 | Discharge Summary ---
Discharge Summary Date of Service September 30, 2024 Principal Dx & Hospital Course #1 = Principal Diagnosis (1) Status epilepticus: 29 y/o man with history of seizure disorder and recent admission with status epilepticus who was [facility] in from [facility] with seizure- like activity Multiple seizures in the ED after arrival despite midazolam and lorazepam IV as well as IV keppra Per my colleague Dr. Hramon last night: "Patient having continued seizure like activity last from 2-10 minutes without resolution in between episodes, foaming and mouth afterwards and non responsive to noxious stimuli Tonic-clonic seizure activity recorded and sent to neurology This is despite Midazolam 5mg IV x2 and Keppra 3500mg IV At this point he is outside of this institutions ability to care for him. Although the possibility of pseudoseizures remains we do not have the ability for continuous EEG monitoring here therefore recommend transfer to tertiary care Center - discussed with both Dr Wyatt (neurology) and Dr Krishnamurthy (ER provider) Patient unable to be transferred at this time due to weather but accepted at [facility]. Patient intubated in the ER. Accepted overnight in our ICU. Will defer ongoing management to ICU team." CTH negative for acute intracranial abnormality. There is question of a tiny calcification approximately 4mm assumed to be a meningioma which was not commented on prior. He was admitted to the ICU and when I saw him this morning he was intubated and sedated with propofol. Had remained stable overnight with no additional significant events noted. He has departed for neuro ICU at [facility] this morning, where EEG monitoring will be available. I am unable to obtain further history but by chart review and med list: Seizure disorder Hypertension - relatively hypotensive, meds held - lisinopril, HCTZ Hypothyroidism - continue levothyroxine HLD - on statin Mood disorder - on venlefaxine Admission HPI Per Admitting Provider Ozzy Cruz is a 29 year old male with known seizure disorder on Keppra and Carbamazepine who presents to the ER with ongoing seizures. He was recently admitted from September [id number] due to status epilepticus. Initial neurology note reports plan to increase Keppra from 500mg PO BID to 750mg PO BID however hospitalist discharge summary notes this was discussed with neurology on discharge and no med changes were subsequently made. Unable to get any history from patient when seen as currently had a GCS 3 shortly after a 10 minutes seizure in the ER. Per ER note he was found on the phone with his mother in a chair having a seizure. Multiple seizure of the course of half an hour. Generalized shaking. Received Ativan 2mg IV and Midazolam 5mg IV from EMS. In the ER he was loaded with Keppra 3500mg and given Midazolam 5mg IV x2. When seen by myself he had just finished a 10 minute seziure and went on to have another 2 minute seizure with generalized clonic movements. Of note registration created a new account for the patient therefore to view prior notes he is under a different . Discharge Plan Discharge Items Patient Disposition: Transfer Acute Care Hospital Reason For Visit: STATUS EPILECTICUS Follow-up/Referrals: Rajiv WATSON [Primary Care Provider] - Stand-Alone Forms: [facility] Medications and DC Order Prescriptions: No Action levetiracetam 500 mg Tablet 500 mg PO BID prazosin 5 mg Capsule 5 mg PO HS levothyroxine 88 mcg Tablet 88 mcg PO DAILY trazodone 150 mg Tablet 150 mg PO HS lisinopril 5 mg Tablet 5 mg PO DAILY hydrochlorothiazide 25 mg Tablet 25 mg PO DAILY albuterol sulfate 90 mcg/actuation Hfa Aerosol Inhaler 2 puff INHALATION QID PRN (Reason: Shortness of breath / wheezing) perphenazine 16 mg Tablet 16 mg PO BID rosuvastatin 5 mg Tablet 5 mg PO DAILY venlafaxine 75 mg Tablet Extended Release 24hr 75 mg PO HS venlafaxine 150 mg Tablet Extended Release 24hr 300 mg PO HS carbamazepine 200 mg Tablet 400 mg PO HS carbamazepine 200 mg Tablet 200 mg PO BID Rx Instructions: 7am and 11am carbamazepine 100 mg Tablet,Chewable 100 mg PO BID Rx Instructions: 7am and 11am Admission Data Admit Date/Time: 09/29/24 20:22 Attending Provider: Vashti Ford Admit Provider: Lakhwinder Ni Primary Care Provider: Rajiv WATSON Other Providers: Lakhwinder Ni; Alexys Lopez; Vicente Ventura Other Interventions: Discharge Summary Assessment (RN) Last Done: 09/30/24 10:49 Hospital Stay Data Consultations 09/29/24 17:05 ED Decision to Admit Stat 09/29/24 22:15 Consult [employer] Associate Routine 09/30/24 07:00 Consult Neurology Routine Diagnostic Imagining Performed 09/29/24 15:14 CT head/brain wo con Stat Total Time Total Time Spent Total Time Spent (In Minutes): <30 min Coding Level of Care Code 08071 IN/OBS DISCH 30 MIN/LESS Diagnoses Status epilepticus G40.901
[2024-09-30] MEDS ORDERED: VENLAFAXINE HCL XR 150 MG CAPXR NG SCH (21:00)
[2024-09-30] MEDS ORDERED: VENLAFAXINE HCL 37.5 MG TAB NG SCH (21:00)
[2024-09-30] MEDS ORDERED: VENLAFAXINE HCL XR 75 MG CAPXR NG SCH (21:00)
--- NOTE | 2024-09-30 21:35 | Electrocardiogram Report ---
Test Reason : Blood Pressure : */* mmHG Vent. Rate : 68 BPM Atrial Rate : 68 BPM P-R Int : 174 ms QRS Dur : 88 ms QT Int : 376 ms P-R-T Axes : 20 60 83 degrees QTcB Int : 399 ms Normal sinus rhythm Normal ECG When compared with ECG of 29-Sep-2024 15:15, Vent. rate has decreased by [address] elevation now present in Inferior leads Nonspecific T wave abnormality no longer evident in Inferior leads QT has shortened Confirmed by Alex Benson ([id number]) on 09/30/2024 9:34:49 PM Referred By: [facility] Confirmed By: Alex Benson
--- NOTE | 2024-10-02 18:31 | Electrocardiogram Report ---
Test Reason : Blood Pressure : */* mmHG Vent. Rate : 105 BPM Atrial Rate : 105 BPM P-R Int : 190 ms QRS Dur : 86 ms QT Int : 342 ms P-R-T Axes : 37 70 75 degrees QTcB Int : 452 ms Sinus tachycardia Nonspecific T wave abnormality Abnormal ECG When compared with ECG of 27-Sep-2024 13:42, No significant change Confirmed by Alex Benson ([id number]) on 10/02/2024 6:30:54 PM Referred By: [facility] Confirmed By: Alex Benson
== END 2024-09-30 10:51 | disposition short-term general hospital (02) | DRG 101 ==
LOC: ED 15:05 → MERGE 20:22 → 1E 20:22 → SUATTDRO 20:22 → 1E 21:46

== ENCOUNTER 2024-10-10 13:57 | Inpatient (IN) ==
[~2024-10-10 13:57] MED LIST: PROPOFOL IV EMULSION 10 MG/ML 20 ML VIAL IV ONE; ROCURONIUM BROMIDE 10 MG/ML 5 ML VIAL IV ONE
[2024-10-10 15:03] LABS: Basophils # (auto) 0.04 K/uL (0.00-0.20); Basophils % (auto) 0.7 %; Hematocrit (blood only) 39.8 % (42.0-52.0); Hemoglobin 13.2 g/dl (14.0-18.0); Immature Granulocytes # (auto) 0.26 K/uL (0.01-0.20); Immature Granulocytes % (auto) 4.7 %; Lymphocytes # (auto) 1.01 K/uL (1.20-3.40); Lymphocytes % (auto) 18.3 %; Mean Corpuscular Hemoglobin 29.7 pg (25.0-34.0); Mean Corpuscular Hgb Conc 33.2 g/dL (32.0-36.0); Mean Corpuscular Volume 89.4 fL (80.0-100.0); Mean Platelet Volume 8.9 fL (9.4-12.4); Monocytes % (auto) 10.9 %; Neutrophils % (auto) 65.4 %; Platelet Count 522 K/uL (130-400); RDW Coefficient of Variation 14.6 % (11.5-14.5); RDW Standard Deviation 46.9 fL (36.4-46.3); Red Blood Count 4.45 M/uL (4.70-6.10); White Blood Count 5.51 K/ul (4.8-10.8)
[2024-10-10 15:22] LABS: Alanine Aminotransferase 66 U/L (7-52); Albumin Globulin Ratio 1.4 (0.9-2); Albumin Level 4.1 gm/dl (3.4-5.0); Alkaline Phosphatase 80 U/L (34-104); Anion Gap 7 (3-11); Aspartate Aminotransferase 45 U/L (13-39); BUN Creatinine Ratio 16.7 (10-20); Bilirubin,Total 0.3 mg/dl (0.2-1.0); Blood Urea Nitrogen 12 mg/dl (6-23); Calcium 9.6 mg/dl (8.6-10.3); Carbon Dioxide 30 mmol/L (21-32); Chloride 105 mmol/L (98-107); Glucose 130 mg/dl (70-99(Fasting)); Potassium 3.9 mmol/L (3.5-5.1); Sodium 142 mmol/L (136-145); Total Protein 7.1 gm/dl (6.0-8.3)
--- NOTE | 2024-10-10 15:32 | Emergency Department Note ---
Impression & Plan Seizure Admission ED Provider Note HPI: History obtained from bedside RN via EMS report. The patient is a 29-year-old gentleman with history of seizure disorder, presents the emergency department after witnessed seizure today at his correctional facility. Patient reportedly had a witnessed seizure-like event that lasted approximately 20 minutes, EMS was contacted the patient was given Ativan at the correctional facility and then intramuscular Versed upon arrival of EMS. Seizure-like activity apparently broke prior to the patient's arrival to the ER. I was called to the bedside by the nurse taking care of the patient as he had a second episode while here in the ED, the seem to last approximately 30 seconds and resolved spontaneously. On my assessment the patient appears postictal, he is nonverbal on my assessment. Patient reportedly has only been back at his correctional facility for 1 day after being discharged from [facility] over concern for seizures. At that time he did have long-term monitoring performed that showed seizure activity in the left hemisphere of his brain. Patient was discharged to his correctional facility from [facility] on Keppra and Depakote. ROS: - Per HPI Differential Diagnosis: Breakthrough seizure, status epilepticus, intracranial injury to include intracranial hemorrhage, stroke, infection/meningitis, amongst other potential pathologies. *Outpatient medications and allergy history reviewed. 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 On my assessment here in the ED the patient is postictal after having a seizure in the department. He was given Ativan and intramuscular Versed prior to arrival. Patient was loaded with Keppra as his seizure-like activity was brief when here in the ED. CT imaging of the head was obtained that does not show any evidence of any acute intracranial process. Lab work was obtained that shows no leukocytosis, hemoglobin is stable at 13.2, platelet count is slightly elevated at 522, lactic acid is noted to be within normal limits, CMP does not show any evidence of any critical findings otherwise. Upon review of the patient's discharge summary from his recent inpatient stay at [facility], the patient did have LTM performed when he was in the ICU that showed an area of seizure-like activity originating from the left hemisphere. He had an extensive workup while inpatient including MRI of the brain with and without contrast and this did not show any evidence of any acute findings. Patient was just discharged yesterday and return to his correctional facility today when he had his event. I discussed the patient's presentation with on-call [facility] neurology, Dr. Javier Patel, we did review the patient's case together and his recent inpatient stay at [facility], she recommends that the patient be admitted with neurology consultation and at this time there is no indication for stat EEG as the patient is now postictal without any seizure-like activity and carries a known diagnosis of a seizure disorder. She recommends admission to the medicine service and the patient can have neurology consultation at this time. On my reassessment the patient is still drowsy appearing but displaying purposeful movements, he moved the blanket back over to cover himself and has purposeful movements of his extremities. He is not currently having a seizure. [facility] hospitalist service was consulted for admission as they had admitted the patient earlier in the month, the patient was placed for admission in stable condition. Consultants/Discussions held with other healthcare providers: -Neurology, Dr. Javier Patel -Hospitalist, Dr. Ni Disposition discussion held by myself with: -Penitentiary staff at the bedside * CRITICAL CARE TIME: ( 45 ) minutes -I personally spent 45 minutes of critical care time on this patient independent of any procedures and time spent at the bedside and management of acute seizure, interpretation of diagnostic studies, discussion with other consultants including neurology and the hospitalist service and arrangement of admission. Diagnosis: 1. Breakthrough seizure, acute Disposition: Admission Reyes Mccall DO Emergency Medicine Past Med/Surg History Problem List (Updated 10/10/24 @ 18:20 by Reyes Mccall DO) Status epilepticus Seizure-like activity (Acute) Schizoaffective disorder Altered mental status Antisocial personality disorder Seizure disorder Conversion disorder with seizures or convulsions Hypothyroidism HTN (hypertension) GERD (gastroesophageal reflux disease) Asthma Amphetamine abuse Alcohol abuse Status epilepticus (Acute) Anxiety Seizure (Acute) Medical History Schizoaffective disorder Family History Mother Osteoarthritis Social History (System 10/01/24 @ 07:23 by Barb Medeiros) Smoking Status: Unknown if ever smoked Tobacco Type: Cigarettes and Cigars Age Started Using Tobacco: 16; Age Quit Using Tobacco: 26; Do You Dip or Chew Tobacco: Yes; Hx Alcohol Use: Yes Hx Substance Use: Yes Non-Prescribed Medications: Crack / Cocaine and Marijuana Last Used Substance: Unknown Substance Use Type Other:: Pt is incarcerated Preferred Language: Armenian Communication Ability: Unable 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: No Beliefs That Will Affect Care: None Current Living Situation: Other Current Living Situation Comment: [facility] current occupational status: previously employed Feels Safe at Home: Yes Assistive Devices: None Allergies Allergies Allergy/AdvReac Type Severity Reaction Status Date / Time Carbapenems Allergy Unknown Unknown Verified 10/10/24 17:54 Cephalosporins Allergy Unknown Unknown Verified 10/10/24 17:54 Penicillins Allergy Unknown Unknown Verified 10/10/24 17:54 polyethylene glycol Allergy Unknown Unknown Verified 10/10/24 17:54 shellfish derived Allergy Unknown Unknown Verified 10/10/24 17:54 ziprasidone [From Geodon] Allergy Unknown Unknown Verified 10/10/24 17:54 Home Meds Home Medications Medication Instructions Recorded Confirmed albuterol sulfate 90 mcg/actuation 2 puff inhalation QID PRN 04/29/23 10/10/24 aerosol inhaler Shortness Of Breath Or Wheezing hydrochlorothiazide 25 mg tablet 50 mg PO DAILY 04/29/23 09/27/24 perphenazine 16 mg tablet 16 mg PO BID 04/29/23 09/27/24 venlafaxine 150 mg 300 mg PO HS 04/29/23 09/27/24 capsule,extended release 24 hr venlafaxine 75 mg capsule,extended 75 mg PO HS 04/29/23 09/27/24 release 24 hr prazosin 5 mg capsule 5 mg PO HS 09/27/24 09/27/24 rosuvastatin 5 mg tablet 5 mg PO DAILY 09/27/24 09/27/24 trazodone 150 mg tablet 150 mg PO HS 09/27/24 09/27/24 carbamazepine 100 mg chewable 100 mg PO BID 09/29/24 10/10/24 tablet carbamazepine 200 mg tablet 200 mg PO BID 09/29/24 10/10/24 hydrochlorothiazide 25 mg tablet 25 mg PO DAILY 09/29/24 09/29/24 levothyroxine 88 mcg tablet 88 mcg PO DAILYBB 09/29/24 10/10/24 lisinopril 5 mg tablet 5 mg PO QAM 09/29/24 10/10/24 perphenazine 16 mg tablet 16 mg PO BID 09/29/24 09/29/24 prazosin 5 mg capsule 5 mg PO HS 09/29/24 09/29/24 rosuvastatin 5 mg tablet 5 mg PO DAILY 09/29/24 09/29/24 trazodone 150 mg tablet 150 mg PO HS 09/29/24 09/29/24 venlafaxine 150 mg tablet,extended 300 mg PO HS 09/29/24 09/29/24 release 24 hr venlafaxine 75 mg tablet,extended 75 mg PO HS 09/29/24 09/29/24 release 24 hr desmopressin 0.1 mg tablet 0.3 mg PO HS 10/10/24 10/10/24 divalproex 250 mg tablet,extended 750 mg PO BID 10/10/24 10/10/24 release 24 hr levetiracetam 1,000 mg tablet 1,000 mg PO BID 10/10/24 10/10/24 Previous Rx's Medication Instructions Recorded carbamazepine 200 mg tablet 400 mg (2 x 200 mg) PO HS #60 tabs 05/01/23 Results & Data (ED) Vital Signs Vital Signs - 24 hr 10/10/24 14:14 10/10/24 14:18 10/10/24 14:18 Temperature 37.4 C Temperature Source Axillary Pulse Rate 88 83 99 H Pulse Rate [Right Brachial] Pulse Rate from SpO2 Sensor 97 H Pulse Rhythm [Right Brachial] Pulse Strength [Right Brachial] Respiratory Rate 21 23 Respiratory Effort / Characteristics Respiratory Depth Normal Respiratory Pattern Blood Pressure 117/76 Blood Pressure [Left Arm] Blood Pressure Mean 89 Blood Pressure Mean [Left Arm] Blood Pressure Position [Left Arm] Pulse Oximetry 96 95 Oxygen Delivery Method Room Air Sepsis Recent Fever Within 48 Hours No Sepsis New/Unexplained Change in Mental Status N/A Sepsis Action Taken by Nursing No Action Required End-Tidal CO2 41 42 10/10/24 14:45 10/10/24 14:48 10/10/24 16:18 Temperature Temperature Source Pulse Rate 76 Pulse Rate [Right Brachial] 60 Pulse Rate from SpO2 Sensor Pulse Rhythm [Right Brachial] Regular Pulse Strength [Right Brachial] Normal Respiratory Rate 12 20 Respiratory Effort / Characteristics Non-Labored Respiratory Depth Normal Respiratory Pattern Regular Blood Pressure 110/67 Blood Pressure [Left Arm] 122/66 Blood Pressure Mean 83 Blood Pressure Mean [Left Arm] 84 Blood Pressure Position [Left Arm] Lying Pulse Oximetry 94 100 Oxygen Delivery Method Room Air Sepsis Recent Fever Within 48 Hours Sepsis New/Unexplained Change in Mental Status Sepsis Action Taken by Nursing End-Tidal CO2 42 10/10/24 18:15 Temperature Temperature Source Pulse Rate 57 L Pulse Rate [Right Brachial] Pulse Rate from SpO2 Sensor Pulse Rhythm [Right Brachial] Pulse Strength [Right Brachial] Respiratory Rate Respiratory Effort / Characteristics Respiratory Depth Respiratory Pattern Blood Pressure Blood Pressure [Left Arm] Blood Pressure Mean Blood Pressure Mean [Left Arm] Blood Pressure Position [Left Arm] Pulse Oximetry Oxygen Delivery Method Sepsis Recent Fever Within 48 Hours Sepsis New/Unexplained Change in Mental Status Sepsis Action Taken by Nursing End-Tidal CO2 Laboratory Data 10/10/24 14:14 10/10/24 14:14 Lab Results 10/10/24 10/10/24 Range/Units 14:14 15:50 WBC 5.51 (4.8-10.8) K/ul RBC 4.45 L (4.70-6.10) M/uL Hgb 13.2 L (14.0-18.0) g/dl Hct 39.8 L (42.0-52.0) % MCV 89.4 (80.0-100.0) fL MCH 29.7 (25.0-34.0) pg MCHC 33.2 (32.0-36.0) g/dL RDW Std Deviation 46.9 H (36.4-46.3) fL RDW Coeff of Taras 14.6 H (11.5-14.5) % Plt Count 522 H (130-400) K/uL MPV 8.9 L (9.4-12.4) fL Immature Gran % (Auto) 4.7 % Neut % (Auto) 65.4 % Lymph % (Auto) 18.3 % Corson % (Auto) 10.9 % Eos % (Auto) 0.0 % Baso % (Auto) 0.7 % Neut # (Auto) 3.60 (1.40-6.50) K/uL Lymph # (Auto) 1.01 L (1.20-3.40) K/uL Corson # (Auto) 0.60 H (0.11-0.59) K/uL Eos # (Auto) 0.00 (0.00-0.50) K/uL Baso # (Auto) 0.04 (0.00-0.20) K/uL Immature Gran # (Auto) 0.26 H (0.01-0.20) K/uL Sodium 142 (136-145) mmol/L Potassium 3.9 (3.5-5.1) mmol/L Chloride 105 (98-107) mmol/L Carbon Dioxide 30 (21-32) mmol/L Anion Gap 7 (3-11) BUN 12 (6-23) mg/dl Creatinine 0.72 (0.6-1.4) mg/dl Est Cr Clr Drug Dosing Not Reportable eGFR 126.04 BUN/Creatinine Ratio 16.7 (10-20) Glucose 130 H (70-99(Fasting)) mg/dl Lactate 1.4 (0.4-2.0) mmol/L Calcium 9.6 (8.6-10.3) mg/dl Total Bilirubin 0.3 (0.2-1.0) mg/dl AST 45 H (13-39) U/L ALT 66 H (7-52) U/L Alkaline Phosphatase 80 (34-104) U/L Total Protein 7.1 (6.0-8.3) gm/dl Albumin 4.1 (3.4-5.0) gm/dl Globulin 3.0 (2.5-4.0) gm/dl Albumin/Globulin Ratio 1.4 (0.9-2) Administered Medications Discontinued Medications Levetiracetam (Levetiracetam 500 Mg/5 Ml Vial) 3,950 mg 40 mg/kg (3950 mg) IV NOW STA Stop: 10/10/24 15:23 Last Admin: 10/10/24 15:37 Dose: 3,950 mg Documented By: CARLOS Lorazepam (Lorazepam 1 Mg/1 Ml Syr Ed Inj Use) Confirm Administered Dose 2 mg .ROUTE .STK-MED ONE Stop: 10/10/24 15:20 Last Admin: 10/10/24 15:49 Dose: Not Given Documented By: CARLOS Imaging Data Radiologist's Impression: Head CT 10/10/24 15:23 Clinical History: Seizure. Technique: Axial computed tomography images were obtained of the brain from the vertex to the skull base without intravenous contrast. Comparison is made to the prior CT dated 09/27/2024 Findings: There is no sign of intracranial hemorrhage. There is normal butterfield-white matter differentiation with no sign of acute or old infarction. No midline shift or other form of herniation is identified. There is no hydrocephalus. No obvious mass lesion is seen on this noncontrast examination. The visualized portions of the orbits and paranasal sinuses appear unremarkable. The mastoid air cells appear clear Impression: Unremarkable noncontrast CT of the brain Electronically signed by Juan Chen 10-10-2024 4:28 PM Discharge Plan Visit Data Chief Complaint: Seizure Stated Complaint: SEIZURES ED Provider: Reyes Mccall Discharge Problem: Seizure Forms Stand Alone Forms: My [facility] Prescriptions Prescriptions: No Action venlafaxine 75 mg Capsule,Extended Release 24hr 75 mg PO HS venlafaxine 150 mg Capsule,Extended Release 24hr 300 mg PO HS perphenazine 16 mg Tablet 16 mg PO BID albuterol sulfate 90 mcg/actuation Hfa Aerosol Inhaler 2 puff INHALATION QID PRN (Reason: Shortness Of Breath Or Wheezing) hydrochlorothiazide 25 mg Tablet 50 mg PO DAILY carbamazepine 200 mg tablet 400 mg PO HS Qty: 60 0RF Rx Instructions: TAKE TWO TABLETS AT BEDTIME prazosin 5 mg Capsule 5 mg PO HS levothyroxine 88 mcg Tablet 88 mcg PO DAILYBB trazodone 150 mg Tablet 150 mg PO HS lisinopril 5 mg Tablet 5 mg PO QAM hydrochlorothiazide 25 mg Tablet 25 mg PO DAILY perphenazine 16 mg Tablet 16 mg PO BID rosuvastatin 5 mg Tablet 5 mg PO DAILY venlafaxine 75 mg Tablet Extended Release 24hr 75 mg PO HS venlafaxine 150 mg Tablet Extended Release 24hr 300 mg PO HS carbamazepine 200 mg Tablet 200 mg PO BID Rx Instructions: GIVE WITH 100MG= 300MG BID @ 7AM AND 11AM carbamazepine 100 mg Tablet,Chewable 100 mg PO BID Rx Instructions: GIVE WITH 200MG = 300MG @ 7AM AND 11AM trazodone 150 mg Tablet 150 mg PO HS rosuvastatin 5 mg Tablet 5 mg PO DAILY prazosin 5 mg Capsule 5 mg PO HS desmopressin 0.1 mg Tablet 0.3 mg PO HS Rx Instructions: TAKE THREE TABLETS AT BEDTIME divalproex 250 mg Tablet Extended Release 24 Hr 750 mg PO BID Rx Instructions: TAKE THREE TABLETS TWICE DAILY levetiracetam 1,000 mg Tablet 1,000 mg PO BID Referrals Referrals: Rajiv WATSON [Primary Care Provider] -
[2024-10-10] MEDS: levETIRAcetam 500 MG/5 ML VIAL IV STA (15:37)
[2024-10-10] MEDS: LORazepam 1 MG/1 ML SYR ED Inj Use ONE (15:49)
--- NOTE | 2024-10-10 16:28 | CT Scan Report ---
Clinical History: Seizure. Technique: Axial computed tomography images were obtained of the brain from the vertex to the skull base without intravenous contrast. Comparison is made to the prior CT dated 09/27/2024 Findings: There is no sign of intracranial hemorrhage. There is normal butterfield-white matter differentiation with no sign of acute or old infarction. No midline shift or other form of herniation is identified. There is no hydrocephalus. No obvious mass lesion is seen on this noncontrast examination. The visualized portions of the orbits and paranasal sinuses appear unremarkable. The mastoid air cells appear clear Impression: Unremarkable noncontrast CT of the brain Electronically signed by Juan Chen 10-10-2024 4:28 PM
--- NOTE | 2024-10-10 16:39 | Electrocardiogram Report ---
Test Reason : Blood Pressure : */* mmHG Vent. Rate : 90 BPM Atrial Rate : 90 BPM P-R Int : 140 ms QRS Dur : 84 ms QT Int : 342 ms P-R-T Axes : 44 58 41 degrees QTcB Int : 418 ms Normal sinus rhythm Nonspecific T wave abnormality Abnormal ECG When compared with ECG of 29-Sep-2024 15:15, No significant change was found Confirmed by Tommy Benites ([id number]) on 10/10/2024 4:38:52 PM Referred By: Confirmed By: Tommy Benites
--- NOTE | 2024-10-10 19:57 | History & Physical Report ---
Date of Service October 10, 2024 Assessment & Plan (1) Status epilepticus: Plan: Patient with recurrent episodes of tonic-clonic seizure activity - personally witnessed in PCU, three episodes lasting 5+ minutes. He has been administered Benzos as well as his PO medications. Patient was recently worked up at [place] for the same - had EEG monitoring which revealed seizure activity in the left hemisphere of the brain. Intubated for status epilepticus. Electrolytes are WNL. No reported head trauma. No reported fever or neck stiffness. -Patient to be transferred to [facility] -Continue Versed and Propofol drips -Fentanyl drip -Continue anti-epileptics - Carbamazepine, Divalproex, Keppra -Levels have been sent but may take several days to result -Holding Prazosin and Trazodone (2) Schizoaffective disorder: Plan: Patient with anxiety/depression as well as schizoaffective -Continue Venlafaxine -Continue Seroquel -Hold Trazodone (3) HTN (hypertension): Plan: Chronic. BP well controlled -Continue Lisinopril -Monitor (4) Asthma: Plan: Chronic. No wheeze -Albuterol PRN Plan Hyperlipidemia -Continue Crestor History of Present Illness Chief Complaint: seizure Primary Care Provider: [facility] Vin Guerrero is a 29yo incarcerated male with history of HTN, GERD, Asthma, Anxiety, Seizure as well as PNES presenting with seizure like activity. Patient presented to our facility on 09/29/24 with continued seizure activity despite Midazolam and Keppra. He was ultimately intubated and transferred to [facility] for workup and management of possible status epilepticus. Patient had EEG monitoring at [facility] which revealed seizure activity in the left hemisphere of his brain. He was discharged on Keppra and Depakote and returned to his correctional facility today. Patient reportedly took his medications. In the afternoon he developed seizure-like activity that lasted approximately 20 minutes. He was given Ativan as well as IM versed prior to arrival. He did have two additional seizure-like episodes while in the ER that were self li miting. Upon patient's arrival to the floor he had two seizure-like episodes each lasting over 5 minutes. Patient was not responsive between these two seizures but did become responsive after the second seizure terminated. At that time he was able to answer questions and follow commands and took his PM medications, specifically anti-epileptics - Carbamazepine, Divalproex and Keppra. Patient th en had recurrent seizure activity and was administered Ativan 4mg IV. Patient with recurrence of seizure activity therefore was intubated. Allergies Allergy/AdvReac Type Severity Reaction Status Date / Time Carbapenems Allergy Unknown Unknown Verified 10/10/24 17:54 Cephalosporins Allergy Unknown Unknown Verified 10/10/24 17:54 Penicillins Allergy Unknown Unknown Verified 10/10/24 17:54 polyethylene glycol Allergy Unknown Unknown Verified 10/10/24 17:54 shellfish derived Allergy Unknown Unknown Verified 10/10/24 17:54 ziprasidone [From Geodon] Allergy Unknown Unknown Verified 10/10/24 17:54 Home Medications Medication Instructions Recorded Confirmed Type albuterol sulfate 90 mcg/actuation 2 puff inhalation QID PRN 04/29/23 10/10/24 History aerosol inhaler Shortness Of Breath Or Wheezing perphenazine 16 mg tablet 16 mg PO BID 04/29/23 10/10/24 History venlafaxine 150 mg 300 mg PO HS 04/29/23 10/10/24 History capsule,extended release 24 hr venlafaxine 75 mg capsule,extended 75 mg PO HS 04/29/23 10/10/24 History release 24 hr levothyroxine 88 mcg tablet 88 mcg PO DAILYBB 09/29/24 10/10/24 History lisinopril 5 mg tablet 5 mg PO QAM 09/29/24 10/10/24 History prazosin 5 mg capsule 5 mg PO HS 09/29/24 10/10/24 History rosuvastatin 5 mg tablet 5 mg PO QAM 09/29/24 10/10/24 History trazodone 150 mg tablet 150 mg PO HS 09/29/24 10/10/24 History carbamazepine 100 mg chewable 100 mg PO BID 10/10/24 10/10/24 History tablet carbamazepine 200 mg tablet 200 mg PO BID 10/10/24 10/10/24 History carbamazepine 200 mg tablet 400 mg PO HS 10/10/24 10/10/24 History desmopressin 0.1 mg tablet 0.3 mg PO HS 10/10/24 10/10/24 History divalproex 250 mg tablet,extended 750 mg PO BID 10/10/24 10/10/24 History release 24 hr hydrochlorothiazide 25 mg tablet 25 mg PO DAILY 10/10/24 10/10/24 History levetiracetam 1,000 mg tablet 1,000 mg PO BID 10/10/24 10/10/24 History quetiapine 100 mg tablet 100 mg PO DAILY 10/10/24 10/10/24 History sulfamethoxazole 800 1 tab PO BID 10/10/24 10/10/24 History mg-trimethoprim 160 mg tablet Past Med/Surg History Problem List Respiratory failure requiring intubation Status epilepticus Seizure-like activity (Acute) Schizoaffective disorder Altered mental status Antisocial personality disorder Seizure disorder Conversion disorder with seizures or convulsions Hypothyroidism HTN (hypertension) GERD (gastroesophageal reflux disease) Asthma Amphetamine abuse Alcohol abuse Status epilepticus (Acute) Anxiety Seizure (Acute) Family History Mother Osteoarthritis Social History Smoking Status: Current some day smoker Tobacco Type: Cigarettes Age Started Using Tobacco: 16; Age Quit Using Tobacco: 26; Second Hand Exposure: No; Do You Dip or Chew Tobacco: No; Hx Alcohol Use: Yes Alcohol type: other Hx Substance Use: Yes Non-Prescribed Medications: Crack / Cocaine and Marijuana Last Used Substance: Unknown Substance Use Type Other:: Pt is incarcerated Preferred Language: Divehi Communication Ability: Effective Filter Assembler Required: No Beliefs That Will Affect Care: None Current Living Situation: Other Current Living Situation Comment: [facility] current occupational status: previously employed Feels Safe at Home: Yes Assistive Devices: None Review of Systems Review of Systems: Unobtainable due to reduced consciousness Physical Exam Physical Exam: General: patient post-ictal, somnolent but able to answer questions and follow commands Skin: warm, dry, intact, no rashes or lesions HEENT: NC/AT, Pupils dilated bilaterally, round and reactive, anicteric sclera, conjunctiva without injection, external ear normal to inspection and nontender, nares patent, moist mucus membranes, dentition intact, no oropharyngeal lesions, neck supple, trachea midline, no LAD, no thyromegaly, no JVD Heart: +S1/S2, regular, no m/r/g Lungs: equal air entry bilaterally, no rales/rhonchi/wheezes Abd: +BS, soft, NT/ND, no masses/organomegaly/ascites Ext: warm, 2+ pulses in UE/LE bilaterally, no clubbing/cyanosis or edema Neuro: ongoing seizure activity - tonic clonic involving rigidity of UE and LE bilaterally. No tongue biting, no incontinence. No response to noxious stimuli (nail beds, sternal rub) during episodes Results & Data Results & Data Vital Signs (Past 12 Hours) Vital Signs Temp Pulse Pulse Resp BP BP Pulse Ox 10/10/24 18:15 57 L 10/10/24 18:00 61 16 113/62 98 10/10/24 16:18 60 20 122/66 100 10/10/24 14:48 94 10/10/24 14:45 76 12 110/67 10/10/24 14:18 99 H 23 95 10/10/24 14:18 37.4 C 83 21 117/76 96 10/10/24 14:14 88 O2 Del Method 10/10/24 18:15 10/10/24 18:00 Room Air 10/10/24 16:18 Room Air 10/10/24 14:48 10/10/24 14:45 10/10/24 14:18 10/10/24 14:18 Room Air 10/10/24 14:14 Laboratory Results Laboratory Results WBC 5.51 K/ul (4.8-10.8) 10/10/24 14:14 RBC 4.45 M/uL (4.70-6.10) L 10/10/24 14:14 Hgb 13.2 g/dl (14.0-18.0) L 10/10/24 14:14 Hct 39.8 % (42.0-52.0) L 10/10/24 14:14 MCV 89.4 fL (80.0-100.0) 10/10/24 14:14 MCH 29.7 pg (25.0-34.0) 10/10/24 14:14 MCHC 33.2 g/dL (32.0-36.0) 10/10/24 14:14 RDW Std Deviation 46.9 fL (36.4-46.3) H 10/10/24 14:14 RDW Coeff of Taras 14.6 % (11.5-14.5) H 10/10/24 14:14 Plt Count 522 K/uL (130-400) H 10/10/24 14:14 MPV 8.9 fL (9.4-12.4) L 10/10/24 14:14 Immature Gran % (Auto) 4.7 % 10/10/24 14:14 Neut % (Auto) 65.4 % 10/10/24 14:14 Lymph % (Auto) 18.3 % 10/10/24 14:14 Craig % (Auto) 10.9 % 10/10/24 14:14 Eos % (Auto) 0.0 % 10/10/24 14:14 Baso % (Auto) 0.7 % 10/10/24 14:14 Neut # (Auto) 3.60 K/uL (1.40-6.50) 10/10/24 14:14 Lymph # (Auto) 1.01 K/uL (1.20-3.40) L 10/10/24 14:14 Craig # (Auto) 0.60 K/uL (0.11-0.59) H 10/10/24 14:14 Eos # (Auto) 0.00 K/uL (0.00-0.50) 10/10/24 14:14 Baso # (Auto) 0.04 K/uL (0.00-0.20) 10/10/24 14:14 Immature Gran # (Auto) 0.26 K/uL (0.01-0.20) H 10/10/24 14:14 Sodium 142 mmol/L (136-145) 10/10/24 14:14 Potassium 3.9 mmol/L (3.5-5.1) 10/10/24 14:14 Chloride 105 mmol/L (98-107) 10/10/24 14:14 Carbon Dioxide 30 mmol/L (21-32) 10/10/24 14:14 Anion Gap 7 (3-11) 10/10/24 14:14 BUN 12 mg/dl (6-23) 10/10/24 14:14 Creatinine 0.72 mg/dl (0.6-1.4) 10/10/24 14:14 Est Cr Clr Drug Dosing Not Reportable 10/10/24 14:14 eGFR 126.04 10/10/24 14:14 BUN/Creatinine Ratio 16.7 (10-20) 10/10/24 14:14 Glucose 130 mg/dl (70-99(Fasting)) H 10/10/24 14:14 Lactate 1.4 mmol/L (0.4-2.0) 10/10/24 15:50 Calcium 9.6 mg/dl (8.6-10.3) 10/10/24 14:14 Phosphorus 3.5 mg/dl (2.5-4.9) 10/10/24 14:14 Magnesium 2.0 mg/dl (1.7-2.4) 10/10/24 14:14 Total Bilirubin 0.3 mg/dl (0.2-1.0) 10/10/24 14:14 AST 45 U/L (13-39) H 10/10/24 14:14 ALT 66 U/L (7-52) H 10/10/24 14:14 Alkaline Phosphatase 80 U/L (34-104) 10/10/24 14:14 Total Protein 7.1 gm/dl (6.0-8.3) 10/10/24 14:14 Albumin 4.1 gm/dl (3.4-5.0) 10/10/24 14:14 Globulin 3.0 gm/dl (2.5-4.0) 10/10/24 14:14 Albumin/Globulin Ratio 1.4 (0.9-2) 10/10/24 14:14 Urine Opiates Screen Neg (Neg) 10/10/24 20:33 Ur Methadone, Qual Neg (Neg) 10/10/24 20:33 Urine Fentanyl Screen Neg (Neg) 10/10/24 20:33 Urine Barbiturates Neg (Neg) 10/10/24 20:33 Ur Phencyclidine (PCP) Neg (Neg) 10/10/24 20:33 U Amphetamin/Meth Scrn Neg (Neg) 10/10/24 20:33 MDMA (Ecstasy) Screen Neg (Neg) 10/10/24 20:33 U Benzodiazepines Scrn Pos (Neg) H 10/10/24 20:33 Ur Cocaine Metabolite Neg (Neg) 10/10/24 20:33 U Marijuana (THC) Screen Neg (Neg) 10/10/24 20:[address] 10/10/24 15:23 Clinical History: Seizure. Technique: Axial computed tomography images were obtained of the brain from the vertex to the skull base without intravenous contrast. Comparison is made to the prior CT dated 09/27/2024 Findings: There is no sign of intracranial hemorrhage. There is normal butterfield-white matter differentiation with no sign of acute or old infarction. No midline shift or other form of herniation is identified. There is no hydrocephalus. No obvious mass lesion is seen on this noncontrast examination. The visualized portions of the orbits and paranasal sinuses appear unremarkable. The mastoid air cells appear clear Impression: Unremarkable noncontrast CT of the brain Electronically signed by Juan Chen 10-10-2024 4:28 PM Chest X-Ray 10/10/24 22:52 Exam(s): XR CXR 1 VIEW EXAM: XR Chest, 1 View CLINICAL HISTORY: Reason for exam: post-intubation. TECHNIQUE: Frontal view of the chest. COMPARISON: 09/29/2024 FINDINGS: Lungs: No segmental or lobar consolidation identified. There is mild vascular congestion. Pleural space: Unremarkable. No pleural fluid or pneumothorax. Heart: Unremarkable. No cardiomegaly. Mediastinum: The cardiomediastinal silhouette is stable. Bones/joints: Unremarkable. No acute fracture. Tubes, lines and devices: The ventricular tube terminates approximately 4.5 cm proximal to the behzad. The orogastric tube terminates in the region of the stomach. IMPRESSION: Mild vascular congestion. Electronically signed by: Cezar Beltrán MD 10/10/24 23:50 PM ECG Additional Comments: [facility], [place] Electrocardiogram Report Signed Patient: VIN GUERRERO [id number] Admit Date: 10/10/24 MR#: [id number] Att Phy: Acct ID: [id number] Lashay Phy: [facility] Date: 1995 Fam Phy: Age: 29 Location: ED Sex: M Room/Bed: cc: ~ DICTATED BY: Tommy Benites MD Test Reason : Blood Pressure : */* mmHG Vent. Rate : 90 BPM Atrial Rate : 90 BPM P-R Int : 140 ms QRS Dur : 84 ms QT Int : 342 ms P-R-T Axes : 44 58 41 degrees QTcB Int : 418 ms Normal sinus rhythm Nonspecific T wave abnormality Abnormal ECG When compared with ECG of 29-Sep-2024 15:15, No significant change was found Confirmed by Tommy Benites ([id number]) on 10/10/2024 4:38:52 PM Referred By: Confirmed By: Tommy Benites Critical Care Time 45 minutes PG Care Time/CCT Total # of Minutes Spent Total Time Spent with Patient: Total time spent is greater than 50% in coordination of care (as documented) at patient's floor/unit and/or counseling patient: Coding Level of Care Code None Diagnoses Status epilepticus G40.901 Schizoaffective disorder F25.9 HTN (hypertension) I10 Asthma J45.909
[2024-10-10] MEDS ORDERED: ACETAMINOPHEN 325 MG TAB PO PRN (21:12)
[2024-10-10] MEDS ORDERED: ALBUTEROL HFA 8 GM INHALER INH PRN (21:12)
[2024-10-10 21:29] LABS: Amphetamines+Metham, Urine Neg (Neg); Barbiturates, Urine Neg (Neg); Benzodiazepine, Urine Pos (Neg); Cocaine, Urine Neg (Neg); Fentanyl, Urine Neg (Neg); MDMA (Ecstacy), Urine Neg (Neg); Marijuana, Urine Neg (Neg); Methadone, Urine Neg (Neg); Opiate, Urine Neg (Neg); Phencyclidine, Urine Neg (Neg)
[2024-10-10 21:37] LABS: Phosphorus 3.5 mg/dl (2.5-4.9)
[2024-10-10] MEDS: LORazepam 2 MG/1 ML VIAL IV PRN (22:05)
[2024-10-10] MEDS: DIVALPROEX EXTENDED RELEASE 250 MG TABCR PO SCH (22:16)
[2024-10-10] MEDS: DESMOPRESSIN ACETATE 0.1 MG TAB PO SCH (22:16)
[2024-10-10] MEDS: levETIRAcetam 500 MG TAB PO SCH (22:17)
[2024-10-10] MEDS: carBAMazepine 200 MG TABLET PO SCH (22:18)
[2024-10-10] MEDS: traZODone HCL 50 MG TAB PO SCH (22:19)
[2024-10-10] MEDS: PRAZOSIN HCL 1 MG CAP PO SCH (22:19)
[2024-10-10] MEDS: VENLAFAXINE HCL XR 75 MG CAPXR PO SCH (22:23)
[2024-10-10] MEDS: VENLAFAXINE HCL XR 150 MG CAPXR PO SCH (22:23)
[2024-10-10] MEDS: PERPHENAZINE 4 MG TAB PO SCH (22:24)
[2024-10-10] MEDS ORDERED: PROPOFOL BOLUS FROM BAG IV PRN ×2 (22:50→22:56)
[2024-10-10] MEDS ORDERED: STAT IV Infusion **Titration per Protocol STA ×3 (22:50→23:27)
--- NOTE | 2024-10-10 22:55 | Anesthesia Procedure Note ---
Anesthesia Procedure Note Intubation Note Vital Signs: See nurses notes Date of procedure: 10/10/24 Indication for intubation: Failure to ventilate, Failure to oxygenate, Unable to protect airway and Unable to maintain airway patency Consent: Risk / Benefits Reviewed With: Emergency Monitors attached: Blood Pressure, CO2, EKG and Pulse Oximetry Time out completed: Yes Premedication: Propofol (mg) (200) Paralytic medication: Rocuronium (mg) (50) Intubation technique: Adequate preoxygenation, Mask ventilation and Airway suctioned Equipment: Glidescope View: Grade 1 Endotracheal tube: 8.0 and with Stylet Attempts: 1 Tube placement confirmation: auscultation and Positive CO2 detection Procedure Summary: Acute respiratory failure secondary to generalized tonic clonic seizures. Arrived at patient bedside while airway management was being overseen by EM Physician. I took over management of the situation after full report from EM Physician. ICU PA-C was present and performed the technical aspects of airway management under my direction. Patient appeared post-ictal on my arrival and not protecting airway. Bag mask ventilation underway. While preparing for intubation he again began seizure like movement. Induction was achieved with propofol and rocuronium. Cords were easily visualized with videolaryngoscopy, no evidence of stomach contents in the oropharynx. ETT was pased and placement confirmed. Initial plan for sedation and ventilation was in place. Remainder of care returned to ICU team. Post-procedure: Pt hemodynamically stable, Pt tolerates well, No complication and Post placement CXR ordered Anesthesia Charges Indication for Procedure (1) Respiratory failure requiring intubation:
[2024-10-10] MEDS ORDERED: fentaNYL BOLUS from BAG IV PRN ×2 (22:56→23:27)
[2024-10-10] MEDS ORDERED: propofoL 1,000 MG/100 ML VIAL IV SCH (23:00)
[2024-10-10] MEDS ORDERED: MIDAZOLAM HCL 125 MG/250 ML BAG IV SCH (23:15)
[2024-10-10] MEDS ORDERED: VECURONIUM BROMIDE 10 MG VIAL IV STA (23:24)
[2024-10-10] MEDS ORDERED: fentaNYL citrate PF 100 MCG/2 ML VIAL IV PRN (23:27)
[2024-10-10] MEDS: PROPOFOL IV EMULSION 10 MG/ML 100 ML VIAL IV ONE (23:28)
[2024-10-10] MEDS: RAPID SEQUENCE INDUCTION BAG ONE (23:28)
[2024-10-10] MEDS: propofoL 1,000 MG/100 ML VIAL IV SCH (23:29)
[2024-10-10] MEDS: fentaNYL citrate PF 100 MCG/2 ML VIAL ONE (23:29)
[2024-10-10] MEDS: MIDAZOLAM HCL 5 MG/ML 2ML VIAL IV STA (23:30)
[2024-10-10] MEDS ORDERED: MIDAZOLAM BOLUS FROM BAG IV PRN (23:31)
[2024-10-10] MEDS ORDERED: STAT IV/IM STA (23:31)
[2024-10-10] MEDS: fentaNYL citrate 2,500 MCG/250 ML BAG IV ONE (23:32)
[2024-10-10] MEDS: MIDAZOLAM HCL 125MG/250ML D5W IV ONE (23:32)
[2024-10-10] MEDS: VECURONIUM BROMIDE 10 MG VIAL IV ONE (23:33)
[2024-10-10] MEDS: fentaNYL citrate 2,500 MCG/250 ML BAG IV SCH (23:34)
--- NOTE | 2024-10-10 23:40 | Procedure Note ---
Procedure Note Date of Service October 10, 2024 INTUBATION PROCEDURE NOTE: Proceduralist: Rogelio Arauz Sedation: Beto Rosas Attending: Vincenzo Reeves A time-out was completed verifying correct patient, procedure, site, positioning. Patient was evaluated and required intubation for Status/epilectus Sedative agent used: Propofol Paralysis agent used: Rocuronium Emergent consent was implied given patients continual seizure activity and need for for airway protection. The patient was prepared in the appropriate fashion. Sedation was achieved utilizing Propofol 200mg IV and Rocuronium 50mg IV, per Dr. Andrade's administration. The patient was easily ventilated using [id number] to achieve adequate oxygenation. Airway was opened with scissor technique and a S3 GlideScope blade was atraumatically passed, once view was obtained, the airway was suctioned and A 8.0 Nigerian endotracheal tube was placed under direct visualization 25 to cm at the lip. The stylette was removed and balloon was inflated with 10mL of air. Appropriate Colorimetric change was appreciated. Bilateral breath sounds were heard without air sounds in the abdomen. Dr. Salamanca was present for the entire procedure. [facility] Procedure Codes (Charges) Resuscitation Resuscitation: 60138 Endotracheal Intubation, emergency Coding CPT Codes Resuscitation - Resuscitation: 00390 Endotracheal Intubation, emergency ([id number]) Additional Codes Date of Service (PG.SURGERY)
[2024-10-10] MEDS: MIDAZOLAM HCL 125 MG/250 ML BAG IV SCH (23:44)
--- NOTE | 2024-10-10 23:50 | XRay Report ---
Exam(s): XR CXR 1 VIEW EXAM: XR Chest, 1 View CLINICAL HISTORY: Reason for exam: post-intubation. TECHNIQUE: Frontal view of the chest. COMPARISON: 09/29/2024 FINDINGS: Lungs: No segmental or lobar consolidation identified. There is mild vascular congestion. Pleural space: Unremarkable. No pleural fluid or pneumothorax. Heart: Unremarkable. No cardiomegaly. Mediastinum: The cardiomediastinal silhouette is stable. Bones/joints: Unremarkable. No acute fracture. Tubes, lines and devices: The ventricular tube terminates approximately 4.5 cm proximal to the behzad. The orogastric tube terminates in the region of the stomach. IMPRESSION: Mild vascular congestion. Electronically signed by: Cezar Beltrán MD 10/10/24 23:50 PM
--- NOTE | 2024-10-10 23:59 | Critical Care Consultation ---
Date of Consultation October 10, 2024 Assessment & Plan (1) Status epilepticus: Plan Unable at this time to exclude status epilepticus in a patient with known seizure disorder. He has had multiple episodes of seizure-like activity and reportedly prior to admission he had prolonged time until he had a return to some level of normality. He remained lethargic appearing and following commands. At this time as we are unable to say with certainly say this is not status or just his breakthrough seizures, they are frequent, lasting longer than 5 minutes and the last 2 have not spontaneously aborted. - Patient intubated without difficulty - Sedated with Propofol and Fentanyl initially - as he continued to have body movements with rhythmic shaking and head thrashing, he was also initiated on high dose midazolam for status- 10mg bolus followed by 0.2mg/kg/hour - Once patient is symptoms have been controlled, will decrease propofol if able as well as fentanyl. Currently without any seizure like activity and is attempting to raise head off bed and reach for ETT. Life flight arrives at 2358 and patient being prepped for discharge. Rogelio NGUYEN I have personally spent 60 minutes of critical care time in the direct management of this patient. This is a life/limb threatening event. This includes time spent evaluating patient, direct bedside care, chart review, placing orders, interpretation of diagnostic studies, discussion with consultants, patient, and family members, as well as other required patient management activities. This time is exclusive of all separately billable procedures, and teaching time and separate from and in addition to any other critical care service time. Thank you for allowing us to participate in the care of this patient. Please refer to my attending physician's documentation for any further recommendations. History of Present Illness Reason for Consultation: status epilepticus Requesting Physician: Bella Agosto DO Attending Physician: Bella Agosto DO History of Present Illness 29 YOM presents earlier today for concerns of seizure like activity. In short the patient was loaded with keppra as well as given ativan in the ER, and admitted to the hospitalist service. I was notified on arrival to the unit of seizure like activity, that apparently spontaneously broke prior to arrival. Nurse reported bilateral clenched arms, eyes rolled back, stiff legs and shaking bilaterally. Case was being discussed with hospitalist and we were again notified on onset of seizure like activity. On arrival patient was with tonic clonic of right arm and leg and shaking of head. Left arm was clenched. This lasted 5 min and 56 seconds before it broke, within 30 seconds patient started again with no clarity in between episodes. He was then given 4mg IV Ativan with resolution of symptoms, he was able to follow commands approx 30 seconds following episode as well as ask for a drink. He was given his oral anti- epileptics. Within another 10 minutes patient had another episode of tonic clonic movement of right arm, left arm, right leg, left leg, rapid fluttering eye movements as well as jaw clenching. Decision was made at that time to intubate the patient. See separate procedure note. While intubation was being undertaken, the admitting team discussed case with [facility] development executive and patient will be transferred to rule out Status Epilecticus as we do not have the ability to evaluate for such here or do spot EEG at this time. Patient is sedated with Propofol 40mcg/kg/min, Fentanyl 100mcg/min. Remains with some clonic movements and biting at ETT, therefore midazolam was entered. Allergies Allergy/AdvReac Type Severity Reaction Status Date / Time Carbapenems Allergy Unknown Unknown Verified 10/10/24 17:54 Cephalosporins Allergy Unknown Unknown Verified 10/10/24 17:54 Penicillins Allergy Unknown Unknown Verified 10/10/24 17:54 polyethylene glycol Allergy Unknown Unknown Verified 10/10/24 17:54 shellfish derived Allergy Unknown Unknown Verified 10/10/24 17:54 ziprasidone [From Geodon] Allergy Unknown Unknown Verified 10/10/24 17:54 Home Medications Medication Instructions Recorded Confirmed Type albuterol sulfate 90 mcg/actuation 2 puff inhalation QID PRN 04/29/23 10/10/24 History aerosol inhaler Shortness Of Breath Or Wheezing perphenazine 16 mg tablet 16 mg PO BID 04/29/23 10/10/24 History venlafaxine 150 mg 300 mg PO HS 04/29/23 10/10/24 History capsule,extended release 24 hr venlafaxine 75 mg capsule,extended 75 mg PO HS 04/29/23 10/10/24 History release 24 hr levothyroxine 88 mcg tablet 88 mcg PO DAILYBB 09/29/24 10/10/24 History lisinopril 5 mg tablet 5 mg PO QAM 09/29/24 10/10/24 History prazosin 5 mg capsule 5 mg PO HS 09/29/24 10/10/24 History rosuvastatin 5 mg tablet 5 mg PO QAM 09/29/24 10/10/24 History trazodone 150 mg tablet 150 mg PO HS 09/29/24 10/10/24 History carbamazepine 100 mg chewable 100 mg PO BID 10/10/24 10/10/24 History tablet carbamazepine 200 mg tablet 200 mg PO BID 10/10/24 10/10/24 History carbamazepine 200 mg tablet 400 mg PO HS 10/10/24 10/10/24 History desmopressin 0.1 mg tablet 0.3 mg PO HS 10/10/24 10/10/24 History divalproex 250 mg tablet,extended 750 mg PO BID 10/10/24 10/10/24 History release 24 hr hydrochlorothiazide 25 mg tablet 25 mg PO DAILY 10/10/24 10/10/24 History levetiracetam 1,000 mg tablet 1,000 mg PO BID 10/10/24 10/10/24 History lorazepam 2 mg/mL injection 2 mg IM DAILY 10/10/24 10/10/24 History solution quetiapine 100 mg tablet 100 mg PO DAILY 10/10/24 10/10/24 History sulfamethoxazole 800 1 tab PO BID 10/10/24 10/10/24 History mg-trimethoprim 160 mg tablet Patient History Medical History Schizoaffective disorder Family History Mother Osteoarthritis Social History (System 10/01/24 @ 07:23 by Barb Medeiros) Smoking Status: Unknown if ever smoked Tobacco Type: Cigarettes and Cigars Age Started Using Tobacco: 16; Age Quit Using Tobacco: 26; Do You Dip or Chew Tobacco: Yes; Hx Alcohol Use: Yes Hx Substance Use: Yes Non-Prescribed Medications: Crack / Cocaine and Marijuana Last Used Substance: Unknown Substance Use Type Other:: Pt is incarcerated Preferred Language: Mongolian Communication Ability: Unable Brick Mason Required: No Beliefs That Will Affect Care: None Current Living Situation: Other Current Living Situation Comment: [facility] current occupational status: previously employed Feels Safe at Home: Yes Assistive Devices: None Physical Exam Physical Exam: PHYSICAL EXAM: General: post ictal Head: Normocephalic, atraumatic ENT: PERRLA EOMI, no pharyngeal exudate, mucous membranes dry Neuro: AAO x2, speech clear and appropriate, strength intact bilaterally 3/5, Chest: equal rise and fall of the chest, no accessory muscle use, no heaves or thrills, Clear to auscultation, on room air, Cardiac: Regular rate and rhythm, telemetry reviewed- NSR, skin warm dry, cap refill <3 seconds, peripheral pulses +2 no JVD, no murmur, no edema GI: NABS x 4 quadrants, soft, nontender to palpation, no rebound, guarding or tenderness : Carcamo placed to gravity Psych: Normal mood and affect Skin: no rash or erythema Results & Data Results & Data Vital Signs (Past 12 Hours) Vital Signs Temp Pulse Pulse Resp BP BP Pulse Ox 10/10/24 20:00 81 14 132/98 98 10/10/24 18:15 57 L 10/10/24 18:00 61 16 113/62 98 10/10/24 16:18 60 20 122/66 100 10/10/24 14:48 94 10/10/24 14:45 76 12 110/67 10/10/24 14:18 99 H 23 95 10/10/24 14:18 37.4 C 83 21 117/76 96 10/10/24 14:14 88 O2 Del Method 10/10/24 20:00 Room Air 10/10/24 18:15 10/10/24 18:00 Room Air 10/10/24 16:18 Room Air 10/10/24 14:48 10/10/24 14:45 10/10/24 14:18 10/10/24 14:18 Room Air 10/10/24 14:14 Laboratory Results Abnormal lab results 10/10/24 10/10/24 Range/Units 14:14 20:33 RBC 4.45 L (4.70-6.10) M/uL Hgb 13.2 L (14.0-18.0) g/dl Hct 39.8 L (42.0-52.0) % RDW Std Deviation 46.9 H (36.4-46.3) fL RDW Coeff of Taras 14.6 H (11.5-14.5) % Plt Count 522 H (130-400) K/uL MPV 8.9 L (9.4-12.4) fL Lymph # (Auto) 1.01 L (1.20-3.40) K/uL [place] # (Auto) 0.60 H (0.11-0.59) K/uL Immature Gran # (Auto) 0.26 H (0.01-0.20) K/uL Glucose 130 H (70-99(Fasting)) mg/dl AST 45 H (13-39) U/L ALT 66 H (7-52) U/L U Benzodiazepines Scrn Pos H (Neg) Diagnostic Findings Head CT 10/10/24 15:23 Clinical History: Seizure. Technique: Axial computed tomography images were obtained of the brain from the vertex to the skull base without intravenous contrast. Comparison is made to the prior CT dated 09/27/2024 Findings: There is no sign of intracranial hemorrhage. There is normal butterfield-white matter differentiation with no sign of acute or old infarction. No midline shift or other form of herniation is identified. There is no hydrocephalus. No obvious mass lesion is seen on this noncontrast examination. The visualized portions of the orbits and paranasal sinuses appear unremarkable. The mastoid air cells appear clear Impression: Unremarkable noncontrast CT of the brain Electronically signed by Juan Chen 10-10-2024 4:28 PM Coding Level of Care Code 16864 CRITICAL CARE 1ST 30-74M Diagnoses Status epilepticus G40.901
[2024-10-11 00:56] VITALS: RESP 24; TEMP 99.5; O2SAT 100
[2024-10-11 01:21] VITALS: BP 132/98; PULSE 81
[2024-10-11] MEDS ORDERED: LEVOTHYROXINE SODIUM 88 MCG TABLET PO SCH (06:30)
[2024-10-11] MEDS ORDERED: carBAMazepine 100 MG CHEW TAB PO SCH (09:00)
[2024-10-11] MEDS ORDERED: lisinopril 5 MG TAB PO SCH (09:00)
[2024-10-11] MEDS ORDERED: hydroCHLOROthiazide 25 MG TAB PO SCH (09:00)
[2024-10-11] MEDS ORDERED: ROSUVASTATIN CALCIUM 5 MG TAB PO SCH (09:00)
[2024-10-11] MEDS ORDERED: carBAMazepine 200 MG TABLET PO SCH (09:00)
[2024-10-11] MEDS ORDERED: QUEtiapine FUMARATE 100 MG TABLET PO SCH (09:00)
[2024-10-13 10:32] LABS: 7-Aminoclonaz, Confirm NEGATIVE ng/mL (<25); Hydro-Alp Ur, GC/MS NEGATIVE ng/mL (<25); Hydroxyethylflurazepam, Conf NEGATIVE ng/mL (<50); Hydroxymidazolam Ur, GC/MS >2000 ng/mL (<50); Hydroxytriazolam NEGATIVE ng/mL (<50); Lorazepam, Ur GC/MS >2000 ng/mL (<50); Nordiazepam, Confirm NEGATIVE ng/mL (<50); Oxazepam Ur, GC/MS NEGATIVE ng/mL (<50); Temazepam, Confirm NEGATIVE ng/mL (<50)
== END 2024-10-11 01:00 | disposition short-term general hospital (02) | DRG 100 ==
LOC: ED 13:57 → 2E 19:56 → 1E 22:35